=== PATIENT | female | born 1960 | race Asian ===

== ENCOUNTER 2019-02-11 18:05 | Inpatient (IN) | payer OTHER ==
[2019-02-11 19:07] LABS: BASO % 0.3 % (0-2.0); EOS % 2.4 % (0-4.5); HEMATOCRIT 44.6 % (32.4-45.2); LYMPH % 17.7 % (8-40); MCH 34.4 pg (25.7-33.7); MCHC 33.5 g/dl (32.0-36.0); MEAN CELL VOLUME 102.7 fl (80-96); MONO % 12.6 % (3.8-10.2); PLATELET COUNT 364 K/MM3 (134-434); RBC 4.34 M/mm3 (3.60-5.2); RDW 12.5 % (11.6-15.6); WHITE BLOOD COUNT 9.4 K/mm3 (4.0-10.8)
[2019-02-11] MEDS ORDERED: morphine CARPU-JECT 4 MG/1 ML DISP.SYRIN IVPUSH ONE (19:21)
[2019-02-11] MEDS ORDERED: ONDANSETRON 4 MG/2 ML VIAL IVPB ONE (19:21)
[2019-02-11] MEDS ORDERED: ACETAMINOPHEN 1000 MG/100 ML VIAL (NON FORMULARY) IVPB ONE (19:24)
[2019-02-11] MEDS ORDERED: ONDANSETRON 4 MG/2 ML VIAL ONE ×2 (19:25→19:28)
[2019-02-11] MEDS ORDERED: ACETAMINOPHEN INJECTION 100 ML IVPB ONE (19:25)
--- NOTE | 2019-02-11 19:26 | PDOC ---
History of Present Illness - General Chief Complaint: Pain Stated Complaint: ABD PAIN, NAUSEA Time Seen by Provider: 02/11/19 19:21 History Source: Patient Exam Limitations: No Limitations - History of Present Illness Initial Comments: 02/11/19 19:32 This is a 58-year-old female with type 1 insulin-dependent diabetic who has had 3 days of progressive abdominal pain nausea vomiting. Patient said she's had no bowel movement 3 days and not passing gas. Patient tried to give herself an enema 2 without any relief. Patient also was noted to have a fever of 102. Allergies: as per nursing notes Past Medical History: Type 1 diabetes Social history: Lives with family. No smoking. No alcohol. No illicit drugs. Surgical history: section General: No fevers or chills, no weakness, no weight loss HEENT: No change in vision. No sore throat,. No ear pain CardioVascular: no chest discomfort. No shortness of breath Respiratory:No cough, or wheezing. Gastrointestinal: no nausea, vomiting, diarrhea or constipation, No rectal bleeding Genitourinary: No dysuria, hematuria, or frequency Musculoskeletal: No joint or muscle pain or swelling Neurologic: No headache, vertigo, dizziness or loss of consciousness Psychiatric: nor depression Skin: No rashes or easy bruising Endocrine: no increased thirst or abnormal weight change Allergic: no skin or latex allergy All other systems reviewed and normal Exam: General: Well-nourished well-developed individual, mild distress appears very uncomfortable HEENT: Throat: Normal, tonsils normal, no erythema or exudate Neck: Supple, no meningeal signs, no lymphadenopathy Eyes::Pupils equal reactive and round, extraocular motion intact Chest: Nontender to palpation Cardiac: S1-S2 normal, regular rate and rhythm, no murmurs rubs or gallops Respiratory: Lungs clear to auscultation bilateral Abdomen: Abdomen is soft with decreased bowel sounds and some moderate distention. Abdomen is tender on palpation diffusely but more tender across the lower segments. There is no guarding but there is some rebound Extremities: Warm, dry, no cyanosis, clubbing, or edema Skin: No rashes Neuro: Alert and oriented x3, CN II - XII intact, nonfocal exam with normal strength, normal sensation, normal reflexes, normal gait, Psych: Normal mood and affect Assessment and plan: This is a 58-year-old type 1 insulin-dependent diabetic with elevated temperature of 102 here in the ED. Patient had sepsis workup ordered by Dr. Gastelum. In addition to that I gave patient IV fluids, morphine, Zofran, IV Tylenol and ordered a CAT scan of her abdomen and pelvis. Past History - Past Medical History Allergies/Adverse Reactions: Allergies Allergy/AdvReac Type Severity Reaction Status Date / Time No Known Allergies Allergy Verified 02/11/19 18:07 Home Medications: Ambulatory Orders Insulin Glargine,Hum.rec.anlog [Lantus] 9 unit SQ HS 02/11/19 Insulin Lispro [Humalog] unit SQ TID 02/11/19 COPD: No Diabetes: Yes - Surgical History Appendectomy: Yes - Suicide/Smoking/Psychosocial Hx Smoking History: Never smoked Have you smoked in the past 12 months: No Information on smoking cessation initiated: No Hx Alcohol Use: No *Physical Exam - Vital Signs Last Vital Signs Temp Pulse Resp BP Pulse Ox 100 F H 102 H 20 115/78 100 02/11/19 18:05 02/11/19 18:05 02/11/19 18:05 02/11/19 18:05 02/11/19 18:05 ED Treatment Course - LABORATORY CBC & Chemistry Diagram: 02/11/19 19:00 02/11/19 19:00 - ADDITIONAL ORDERS Additional order review: 02/11/19 19:00 RBC 4.34 MCV 102.7 H MCHC 33.5 RDW 12.5 MPV 8.0 Neutrophils % 67.0 Lymphocytes % 17.7 Monocytes % 12.6 H Eosinophils % 2.4 Basophils % 0.3 *DC/Admit/Observation/Transfer Diagnosis at time of Disposition: Cecal volvulus Bowel obstruction Qualifiers: Intestinal obstruction type: volvulus Qualified Code(s): K56.2 - Volvulus - Discharge Dispostion Condition at time of disposition: Stable Decision to Admit order: Yes - Referrals - Patient Instructions - Post Discharge Activity
[2019-02-11 19:30] LABS: ALBUMIN 4.2 g/dl (3.4-5.0); BILIRUBIN,TOTAL 1.3 mg/dl (0.2-1); CALCIUM 9.5 mg/dl (8.5-10); CREATININE 0.8 mg/dl (0.55-1.3); POTASSIUM 3.8 mmol/L (3.5-5.1); TOT PROT 8.1 g/dl (6.4-8.2)
[2019-02-11] MEDS: SODIUM CHLORIDE 1,000 ML IV ONE (19:30)
[2019-02-11] MEDS ORDERED: morphine SULFATE 4 MG/ML VIAL ONE (19:49)
[2019-02-11] MEDS ORDERED: PIPERACILLIN/TAZOB 4.5 GM 4.5 GM in DEXTROSE 5%-WATER 100 ML IVPB ONE (22:56)
[2019-02-11] MEDS ORDERED: SODIUM CHLORIDE 1,000 ML IV SCH (23:00)
[2019-02-11] MEDS ORDERED: PIPERACILLIN/TAZOBACTAM 4.5 GM VIAL IVPB ONE (23:02)
[2019-02-12 01:12] LABS: INR 0.94 (0.83-1.09); PROTHROMBIN TIME (PATIENT) 11.1 SEC (9.7-13.0)
[2019-02-12 01:51] LABS: URINE APPEARANCE CLEAR; URINE BILIRUBIN NEGATIVE (NEGATIVE); URINE COLOR YELLOW; URINE KETONE 40 mg/dl (NEGATIVE)
[2019-02-12 01:52] LABS: URINE LEUK ESTERASE NEGATIVE (NEGATIVE); URINE NITRITE NEGATIVE (NEGATIVE); URINE PROTEIN NEGATIVE (NEGATIVE); URINE UROBILINOGEN 0.2 mg/dL (0.2-1.0)
[2019-02-12 01:53] LABS: EPI CELLS 4.9 /HPF (0-5/HPF); HYALINE CASTS 0.35 /lpf (0-8); URINE BACTERIA 218.6 /hpf (NEGATIVE); URINE RBC 3.4 /hpf (0-4); URINE WBC 5.8 /hpf (0-5)
--- NOTE | 2019-02-12 04:13 | HP ---
Admitting History and Physical - Primary Care Physician PCP: Jada Kam - Admission Chief Complaint: Abdominal Pain, Constipation, N/V History of Present Illness: This is a 58 y/o woman with a PMHx of IDDM. Who presented to [place] ED for abdominal pain with constipation and nausea/vomiting. Patient reports being constipated x 3 days taking laxatives and 2 enemas without relief. Patient describes the pain as constant and increased with movement. Patient reports attempting to eat due to her decreased appetite and began dry heaving. Patient denies fever, chills, cough, dizziness, FORMAN, SOB, CP, palpitations, melena, hematochezia, dysuria. History Source: Patient Limitations to Obtaining History: No Limitations - Past Medical History Endocrine: Yes: Diabetes Mellitus - Past Surgical History Additional Past Surgical History: Myomectomy - Smoking History Smoking history: Never smoked Have you smoked in the past 12 months: No - Alcohol/Substance Use Hx Alcohol Use: Yes (Occasional) History of Substance Use: reports: None - Social History Usual Living Arrangement: Yes: With Spouse ADL: Independent Occupation: Retired- [employer] History of Recent Travel: No Home Medications - Allergies Allergies/Adverse Reactions: Allergies Allergy/AdvReac Type Severity Reaction Status Date / Time No Known Allergies Allergy Verified 02/11/19 18:07 - Home Medications Home Medications: Ambulatory Orders Insulin Glargine,Hum.rec.anlog [Lantus] 9 unit SQ HS 02/11/19 Insulin Lispro [Humalog] unit SQ TID 02/11/19 Family Disease History - Family Disease History Family Disease History: Diabetes: Father, Mother Review of Systems - Review of Systems Constitutional: reports: Loss of Appetite Eyes: reports: No Symptoms HENT: reports: No Symptoms Neck: reports: No Symptoms Cardiovascular: reports: No Symptoms Respiratory: reports: No Symptoms Gastrointestinal: reports: Abdominal Pain, Constipation, Nausea, Vomiting Genitourinary: reports: No Symptoms Breasts: reports: No Symptoms Reported Musculoskeletal: reports: No Symptoms Integumentary: reports: No Symptoms Neurological: reports: No Symptoms Endocrine: reports: No Symptoms Hematology/Lymphatic: reports: No Symptoms Psychiatric: reports: No Symptoms Pain Intensity: 3 Physical Examination Vital Signs: Vital Signs Temperature 98.6 F 02/11/19 20:23 Pulse Rate 93 H 09/01/19 22:57 Respiratory Rate 16 02/11/19 20:23 Blood Pressure 116/79 02/11/19 22:57 O2 Sat by Pulse Oximetry (%) 97 02/11/19 22:57 Constitutional: Yes: No Distress, Calm Eyes: Yes: WNL, Conjunctiva Clear, EOM Intact, PERRL HENT: Yes: WNL, Atraumatic, Normocephalic, Other (16 fr NGT to L- Nare int suction coffee ground in container- coffee ground to clear in tubing) Neck: Yes: WNL, Supple, Trachea Midline Cardiovascular: Yes: WNL, Regular Rate and Rhythm, S1, S2 Respiratory: Yes: WNL, Regular, CTA Bilaterally Gastrointestinal: Yes: Soft, Hypoactive Bowel Sounds, Tenderness (generalized to light/deep palpation), Tenderness, Epigastrium Renal/: Yes: WNL Breast(s): Yes: WNL Musculoskeletal: Yes: WNL Extremities: Yes: WNL Edema: No Peripheral Pulses WNL: Yes Integumentary: Yes: WNL Neurological: Yes: WNL, Alert, Oriented, Cran Nerves II-XII Intact ...Motor Strength: WNL Psychiatric: Yes: WNL, Alert, Oriented Labs: CBC, BMP 02/11/19 19:00 02/11/19 19:00 Laboratory Results - last 24 hr 02/11/19 02/11/19 02/11/19 18:59 19:00 19:00 WBC 9.4 RBC 4.34 Hgb 15.0 Hct 44.6 MCV 102.7 H MCH 34.4 H MCHC 33.5 RDW 12.5 Plt Count 364 MPV 8.0 Absolute Neuts (auto) 6.2 Neutrophils % 67.0 Lymphocytes % 17.7 Monocytes % 12.6 H Eosinophils % 2.4 Basophils % 0.3 PT with INR INR Sodium 132 L Potassium 3.8 Chloride 95 L Carbon Dioxide 24 Anion Gap 13 BUN 26.0 H Creatinine 0.8 Est GFR (CKD-EPI)AfAm 92.87 Est GFR (CKD-EPI)NonAf 80.13 Random Glucose 109 H Lactic Acid 1.1 Calcium 9.5 Total Bilirubin 1.3 H AST 19 ALT 16 Alkaline Phosphatase 74 Troponin I Total Protein 8.1 Albumin 4.2 Lipase Urine Color Urine Appearance Urine pH Ur Specific [place] Urine Protein Urine Glucose (UA) Urine Ketones Urine Blood Urine Nitrite Urine Bilirubin Urine Urobilinogen Ur Leukocyte Esterase Urine WBC (Auto) Urine RBC (Auto) Urine Casts (Auto) U Epithel Cells (Auto) Urine Bacteria (Auto) Blood Type Antibody Screen 02/11/19 02/11/19 02/12/19 19:00 19:00 00:00 WBC RBC Hgb Hct MCV MCH MCHC RDW Plt Count MPV Absolute Neuts (auto) Neutrophils % Lymphocytes % Monocytes % Eosinophils % Basophils % PT with INR 11.10 INR 0.94 Sodium Potassium Chloride Carbon Dioxide Anion Gap BUN Creatinine Est GFR (CKD-EPI)AfAm Est GFR (CKD-EPI)NonAf Random Glucose Lactic Acid Calcium Total Bilirubin AST ALT Alkaline Phosphatase Troponin I < 0.03 Total Protein Albumin Lipase 139 Urine Color Urine Appearance Urine pH Ur Specific [place] Urine Protein Urine Glucose (UA) Urine Ketones Urine Blood Urine Nitrite Urine Bilirubin Urine Urobilinogen Ur Leukocyte Esterase Urine WBC (Auto) Urine RBC (Auto) Urine Casts (Auto) U Epithel Cells (Auto) Urine Bacteria (Auto) Blood Type Antibody Screen 02/12/19 02/12/19 00:00 00:00 WBC RBC Hgb Hct MCV MCH MCHC RDW Plt Count MPV Absolute Neuts (auto) Neutrophils % Lymphocytes % Monocytes % Eosinophils % Basophils % PT with INR INR Sodium Potassium Chloride Carbon Dioxide Anion Gap BUN Creatinine Est GFR (CKD-EPI)AfAm Est GFR (CKD-EPI)NonAf Random Glucose Lactic Acid Calcium Total Bilirubin AST ALT Alkaline Phosphatase Troponin I Total Protein Albumin Lipase Urine Color Yellow Urine Appearance Clear Urine pH 5.0 Ur Specific [place] 1.077 H Urine Protein Negative Urine Glucose (UA) 1000 mg/dl Urine Ketones 40 mg/dl Urine Blood Negative Urine Nitrite Negative Urine Bilirubin Negative Urine Urobilinogen 0.2 Ur Leukocyte Esterase Negative Urine WBC (Auto) 5.8 Urine RBC (Auto) 3.4 Urine Casts (Auto) 0.35 U Epithel Cells (Auto) 4.9 Urine Bacteria (Auto) 218.6 Blood Type A POSITIVE Antibody Screen Negative Imaging - Results Chest X-ray: Image Reviewed Cat Scan: Report Reviewed, Image Reviewed EKG: Image Reviewed Problem List - Problems (1) Cecal volvulus Assessment/Plan: CTAP report 9cm cecal volvulus with obstruction, multiple distended loops. fluid filled small bowel Appreciate Surgical input- Dr You aware, per ED attending- OR in am No Leukocytosis, no L- shift, Lactic Acid-nl NPO NGT placed to low wall suction Zosyn initiated in ED will continue Continue IVF Pain Management Zofran prn Monitor CBC, BMP Monitor vitals Code(s): K56.2 - VOLVULUS (2) Bowel obstruction Assessment/Plan: See above Code(s): K56.609 - UNSP INTESTNL OBST, UNSP TO PARTIAL VERSUS COMPLETE OBST Qualifiers: Intestinal obstruction type: volvulus Qualified Code(s): K56.2 - Volvulus (3) Abdominal pain Assessment/Plan: Likely secondary to Cecak Volvulus with Obstruction CTAP reviewed See above Code(s): R10.9 - UNSPECIFIED ABDOMINAL PAIN (4) Diabetes mellitus, insulin dependent (IDDM), controlled Assessment/Plan: Stable BGMs Hold ISS secondary to NPO Monitor BMP Code(s): E11.9 - TYPE 2 DIABETES MELLITUS WITHOUT COMPLICATIONS; Z79.4 - USP (CURRENT) USE OF INSULIN Assessment/Plan This is a 58 y/o woman with a PMHx of IDDM. Admitted to [facility] for Cecal Volvulus, Abdominal Pain for further evaluation of their emergent condition. Plan: See Problem List FEN NS Visit type - Emergency Visit Emergency Visit: Yes ED Registration Date: 02/11/19 Care time: The patient presented to the Emergency Department on the above date and was hospitalized for further evaluation of their emergent condition. - New Patient This patient is new to me today: Yes Date on this admission: 02/12/19 - Critical Care Critical Care patient: No
[2019-02-12] MEDS ORDERED: ACETAMINOPHEN 1000 MG/100 ML VIAL (NON FORMULARY) IVPB PRN (06:41)
[2019-02-12] MEDS ORDERED: MORPHINE SULFATE 2 MG/ML VIAL IVPUSH PRN (06:42)
[2019-02-12] MEDS ORDERED: ONDANSETRON 4 MG/2 ML VIAL IVPUSH PRN ×4 (06:43→21:58)
--- NOTE | 2019-02-12 07:33 | CONSULT ---
Consult Consult Specialty:: General Surgery Referred by:: Dr. Santana Reason for Consultation:: cecal volvulus - History of Present Illness Chief Complaint: abdominal pain, n/v, f/c, constipation History of Present Illness: 58yo F with adult-onset DM, insulin dependent, controlled, and surgical history significant for myomectomy and remote liposuction, presented to [facility] ER with 3 days of generalized abdominal pain, initially thought to be constipation, with progressive bloating/distention. It started Tuesday morning, and she took stool softener, which did not have much effect, then began vomiting everything she ate later Tuesday. She also has not passed gas for 3 days. Tuesday she tried an enema, with little to no effect, and again yesterday with similar results. She also developed F/C yesterday and realized something else must be wrong, so came to ER. Last po was a little steak and asparagus Tuesday night, which did stay down. In the ER, she was febrile with normal wbc, dehydrated by labs, tachycardic but not hypotensive, and CT showed cecal volvulus with SBO. She was given generous IV fluids, glucose was in normal range, and started on Zosyn. She was transferred to [facility], as there is no OR availability there on weekends/ holidays. NG was inserted with small output, but she did feel a little better. Pain meds were also given. She has since voided several times. She is seen and examined in bed. She c/o abdominal pain and discomfort from the NGT. She relates the above history. - History Source History Provided By: Patient Limitations to Obtaining History: No Limitations - Past Medical History Reproductive: Yes: Fibroids, Postmenopausal Endocrine: Yes: Diabetes Mellitus - Past Surgical History Additional Surgical History: liposuction; myomectomy - Alcohol/Substance Use Hx Alcohol Use: Yes (Occasional) History of Substance Use: reports: None - Smoking History Smoking history: Never smoked Have you smoked in the past 12 months: No - Social History Usual Living Arrangement: With Spouse ADL: Independent Occupation: Retired- [employer] History of Recent Travel: No Home Medications - Allergies Allergies/Adverse Reactions: Allergies Allergy/AdvReac Type Severity Reaction Status Date / Time No Known Allergies Allergy Verified 02/11/19 18:07 - Home Medications Home Medications: Ambulatory Orders Insulin Glargine,Hum.rec.anlog [Lantus] 9 unit SQ HS 02/11/19 Insulin Lispro [Humalog] unit SQ TID 02/11/19 Family Disease History - Family Disease History Family Disease History: Diabetes: Father (stomach, dx in 70s, of), Mother ( uterine, dx at 88, of), [place]: Father, Mother Review of Systems - Review of Systems Constitutional: reports: Chills, Fever Eyes: denies: Blurred Vision, Recent Change in Vision HENT: denies: Difficult Swallowing, Throat Pain Neck: denies: Swollen Glands, Tenderness Cardiovascular: denies: Chest Pain, Palpitations Respiratory: denies: Cough, SOB Gastrointestinal: reports: Abdominal Pain, Constipation, Nausea, Vomiting. denies: Diarrhea, Vomiting Blood Genitourinary: denies: Burning, Dysuria Musculoskeletal: denies: Back Pain, Joint Pain, Muscle Pain Integumentary: denies: Change in Color, Rash Neurological: denies: Dizziness, Headache Psychiatric: denies: Anxiety, Depression Physical Exam Vital Signs: Vital Signs Temperature 98.6 F 02/11/19 20:23 Pulse Rate 93 H 02/11/19 22:57 Respiratory Rate 16 02/11/19 20:23 Blood Pressure 116/79 02/11/19 22:57 O2 Sat by Pulse Oximetry (%) 97 02/11/19 22:57 Constitutional: Yes: Well Nourished, Calm, Mild Distress (in pain) Eyes: Yes: Conjunctiva Clear, EOM Intact HENT: Yes: Atraumatic, Normocephalic, Other (NGT in place with minimal clear output with brown/reddish sediment) Neck: Yes: Supple, Trachea Midline Cardiovascular: Yes: Regular Rate and Rhythm, Tachycardia (slight) Respiratory: Yes: Regular, CTA Bilaterally Gastrointestinal: Yes: Soft, Distention (mild), Hypoactive Bowel Sounds (absent) , Tenderness (diffuse, more in midline and right side, no rebound or guarding), Tenderness, Epigastrium, Other (healed umbilical and subxiphoid small scars) ...Rectal Exam: Yes: Deferred Renal/: No: CVA Tenderness - Left, CVA Tenderness - Right Musculoskeletal: No: Joint Stiffness, Joint Swelling Extremities: No: Cool, Cyanosis Edema: No Peripheral Pulses WNL: Yes Integumentary: No: Jaundice, Rash Neurological: Yes: Alert, Oriented Psychiatric: Yes: Alert, Oriented Labs: Laboratory Results - last 24 hr 02/11/19 02/11/19 02/11/19 18:59 19:00 19:00 WBC 9.4 RBC 4.34 Hgb 15.0 Hct 44.6 MCV 102.7 H MCH 34.4 H MCHC 33.5 RDW 12.5 Plt Count 364 MPV 8.0 Absolute Neuts (auto) 6.2 Neutrophils % 67.0 Lymphocytes % 17.7 Monocytes % 12.6 H Eosinophils % 2.4 Basophils % 0.3 PT with INR INR Sodium 132 L Potassium 3.8 Chloride 95 L Carbon Dioxide 24 Anion Gap 13 BUN 26.0 H Creatinine 0.8 Est GFR (CKD-EPI)AfAm 92.87 Est GFR (CKD-EPI)NonAf 80.13 Random Glucose 109 H Lactic Acid 1.1 Calcium 9.5 Total Bilirubin 1.3 H AST 19 ALT 16 Alkaline Phosphatase 74 Troponin I Total Protein 8.1 Albumin 4.2 Lipase Urine Color Urine Appearance Urine pH Ur Specific [place] Urine Protein Urine Glucose (UA) Urine Ketones Urine Blood Urine Nitrite Urine Bilirubin Urine Urobilinogen Ur Leukocyte Esterase Urine WBC (Auto) Urine RBC (Auto) Urine Casts (Auto) U Epithel Cells (Auto) Urine Bacteria (Auto) Blood Type Antibody Screen 02/11/19 02/11/19 02/12/19 19:00 19:00 00:00 WBC RBC Hgb Hct MCV MCH MCHC RDW Plt Count MPV Absolute Neuts (auto) Neutrophils % Lymphocytes % Monocytes % Eosinophils % Basophils % PT with INR 11.10 INR 0.94 Sodium Potassium Chloride Carbon Dioxide Anion Gap BUN Creatinine Est GFR (CKD-EPI)AfAm Est GFR (CKD-EPI)NonAf Random Glucose Lactic Acid Calcium Total Bilirubin AST ALT Alkaline Phosphatase Troponin I < 0.03 Total Protein Albumin Lipase 139 Urine Color Urine Appearance Urine pH Ur Specific [place] Urine Protein Urine Glucose (UA) Urine Ketones Urine Blood Urine Nitrite Urine Bilirubin Urine Urobilinogen Ur Leukocyte Esterase Urine WBC (Auto) Urine RBC (Auto) Urine Casts (Auto) U Epithel Cells (Auto) Urine Bacteria (Auto) Blood Type Antibody Screen 02/12/19 02/12/19 00:00 00:00 WBC RBC Hgb Hct MCV MCH MCHC RDW Plt Count MPV Absolute Neuts (auto) Neutrophils % Lymphocytes % Monocytes % Eosinophils % Basophils % PT with INR INR Sodium Potassium Chloride Carbon Dioxide Anion Gap BUN Creatinine Est GFR (CKD-EPI)AfAm Est GFR (CKD-EPI)NonAf Random Glucose Lactic Acid Calcium Total Bilirubin AST ALT Alkaline Phosphatase Troponin I Total Protein Albumin Lipase Urine Color Yellow Urine Appearance Clear Urine pH 5.0 Ur Specific [place] 1.077 H Urine Protein Negative Urine Glucose (UA) 1000 mg/dl Urine Ketones 40 mg/dl Urine Blood Negative Urine Nitrite Negative Urine Bilirubin Negative Urine Urobilinogen 0.2 Ur Leukocyte Esterase Negative Urine WBC (Auto) 5.8 Urine RBC (Auto) 3.4 Urine Casts (Auto) 0.35 U Epithel Cells (Auto) 4.9 Urine Bacteria (Auto) 218.6 Blood Type A POSITIVE Antibody Screen Negative Imaging - Results Cat Scan: Report Reviewed, Image Reviewed (images reviewed - cecum very large, twisted with fluid-filled small bowel proximally, relatively decompressed remaining colon, no free air) Problem List - Problems (1) Cecal volvulus Assessment/Plan: transferred from [facility] for OR admitted to medicine fluid resuscitated - NPO/IVF/NGT - little output NG will stay until bowel function resumes postop voiding - better hydrated on fluids IV antibiotics, ID consulted pain meds prn GI/DVT prophylaxis Discussed with patient risks, benefits and alternatives of exploratory laparotomy, bowel resection, possible ostomy, including but not limited to bleeding, infection, injury to adjacent structures, intestinal leak or injury, intraabdominal abscess, incisional hernia, need for further procedures, ; alternatives include no surgery - risks of this include bowel perforation, sepsis, . Patient desires to proceed with operation - will take to OR for above. Informed consent signed for same. Code(s): K56.2 - VOLVULUS (2) Other complete intestinal obstruction Code(s): K56.691 - OTHER COMPLETE INTESTINAL OBSTRUCTION (3) Generalized abdominal pain Code(s): R10.84 - GENERALIZED ABDOMINAL PAIN (4) Nausea & vomiting Code(s): R11.2 - NAUSEA WITH VOMITING, UNSPECIFIED Qualifiers: Vomiting type: unspecified Vomiting Intractability: non-intractable Qualified Code(s): R11.2 - Nausea with vomiting, unspecified (5) Diabetes mellitus, insulin dependent (IDDM), controlled Assessment/Plan: FS with sliding scale insulin Code(s): E11.9 - TYPE 2 DIABETES MELLITUS WITHOUT COMPLICATIONS; Z79.4 - ALF (CURRENT) USE OF INSULIN
[2019-02-12 07:55] LABS: BLOOD UREA NITROGEN 18.9 mg/dL (7-18); CALCIUM 8.5 mg/dL (8.5-10.1); CREATININE 0.6 mg/dL (0.55-1.3); POTASSIUM 3.9 mmol/L (3.5-5.1)
[2019-02-12] MEDS ORDERED: PIPERACILLIN/TAZOBACTAM 4.5 GM VIAL IVPB ONE ×4 (07:56→23:47)
[2019-02-12] MEDS ORDERED: DEXTROSE 5%-WATER 100 ML IVPB ONE ×3 (07:57→23:47)
[2019-02-12 07:59] LABS: BASO % 0.7 % (0-2.0); EOS % 2.6 % (0-4.5); HEMATOCRIT 38.2 % (32.4-45.2); HEMOGLOBIN 12.9 GM/dL (10.7-15.3); LYMPH % 18.1 % (8-40); MCH 34.3 pg (25.7-33.7); MCHC 33.7 g/dl (32.0-36.0); MEAN PLT VOLUME 7.5 fl (7.5-11.1); MONO % 14.1 % (3.8-10.2); NEUT % 64.5 % (42.8-82.8); PLATELET COUNT 287 K/MM3 (134-434); RBC 3.75 M/mm3 (3.60-5.2); RDW 12.7 % (11.6-15.6); WHITE BLOOD COUNT 6.4 K/mm3 (4.0-10.0)
[2019-02-12] MEDS ORDERED: PIPERACILLIN/TAZOB 4.5 GM 4.5 GM in DEXTROSE 5%-WATER 100 ML IVPB SCH ×3 (08:00→16:00)
[2019-02-12] MEDS ORDERED: LIDOCAINE HCL/PF 2% SDV 5ML VIAL ONE (08:24)
[2019-02-12] MEDS ORDERED: SUCCINYLCHOLINE CHLORIDE 200 MG/10 ML SYRINGE ONE (08:25)
[2019-02-12] MEDS ORDERED: PROPOFOL 20 ML ONE ×2 (08:25)
[2019-02-12] MEDS ORDERED: ROCURONIUM BROMIDE 50 MG/5 ML SYRINGE ONE (08:25)
[2019-02-12] MEDS ORDERED: fentaNYL CITRATE 250 MCG/5 ML VIAL ONE ×2 (08:25→10:25)
--- NOTE | 2019-02-12 08:52 | EKG ---
Test Reason : Blood Pressure : / mmHG Vent. Rate : 093 BPM Atrial Rate : 093 BPM P-R Int : 144 ms QRS Dur : 088 ms QT Int : 376 ms P-R-T Axes : 069 075 064 degrees QTc Int : 467 ms NORMAL SINUS RHYTHM NORMAL ECG NO PREVIOUS ECGS AVAILABLE Confirmed by LO GUAJARDO, PALMER ([id number]) on 02/12/2019 8:52:23 AM Referred By: EVERARDO Confirmed By:PALMER BLANCHARD MD
[2019-02-12] MEDS ORDERED: ONDANSETRON 4 MG/2 ML VIAL ONE (09:12)
[2019-02-12] MEDS ORDERED: KETOROLAC TROMETHAMINE 30 MG/1 ML VIAL ONE (09:12)
[2019-02-12] MEDS ORDERED: DEXAMETHASONE SOD PHOSPHATE 4 MG/1 ML VIAL ONE (09:12)
[2019-02-12] MEDS ORDERED: GLYCOPYRROLATE 0.2 MG/1 ML VIAL ONE ×2 (10:25)
[2019-02-12] MEDS ORDERED: NEOSTIGMINE METHYLSULFATE 0.5 MG/1 ML - 10 ML MDV ONE (10:25)
[2019-02-12] MEDS ORDERED: oxyCODONE HCL 5 MG TABLET PO PRN (10:55)
[2019-02-12] MEDS ORDERED: PROMETHAZINE HCL 25 MG/1 ML VIAL IVPUSH PRN (10:55)
[2019-02-12] MEDS ORDERED: HYDROmorphone *PCA* 10MG/50ML DISP.SYRIN PCA SCH ×3 (11:00→21:58)
[2019-02-12] MEDS ORDERED: INSULIN SLIDING SCALE (NOVOLOG) 1 VIAL SQ SCH ×2 (11:00→16:30)
--- NOTE | 2019-02-12 11:51 | OP ---
Operative Note - Note: Operative Date: 02/12/19 Pre-Operative Diagnosis: cecal volvulus Operation: ileocecectomy with lysis of adhesions Findings: omental adhesions to lower abdominal wall/pelvis, adhesive band stuck down to RLQ, around which cecum was twisted and massively enlarged; no perforation; localized spillage during anastomosis only, irrigated/suctioned clear Post-Operative Diagnosis: Other (same as preop with adhesive band/adhesions) Surgeon: Tony You Datastage Developer: Khari Campa Anesthesiologist/COMMISSIONS MANAGER: Barry Joya Anesthesia: General Specimens Removed: terminal ileum/appendix/cecum to pathology; peritoneal fluid cx on swab to micro Estimated Blood Loss (mls): 50 Drains & Tubes with Location: existing NG secured in place; Weldon catheter to gravity drainage Drains, Volume Out (mls): 300 (UOP) Fluid Volume Replaced (mls): 1,800 (crystalloid) Operative Report Dictated: Yes
[2019-02-12] MEDS ORDERED: LACTATED RINGERS SOLUTION 1,000 ML/1,000 ML INFUS.BAG IV SCH ×3 (12:00→20:45)
[2019-02-12] MEDS ORDERED: ACETAMINOPHEN 1000 MG/100 ML VIAL (NON FORMULARY) IVPB SCH ×2 (15:00)
--- NOTE | 2019-02-12 15:02 | CON.ID ---
Consult - History of Present Illness History of Present Illness: 58 y.o. female with PMH of IDDM, fibroids s/p myomectomy, liposuction, and appendectomy presented with c/o abd pain/n/v that began 3 days ago. She reported having no BMs or flatus for 3 days and tried enemas without relief. She denied any fever/chills, SOB/cough/CP/dysuria. In the ER pt was reported to have a fever of 102F with decreased BS and abd distension with diffuse tenderness on exam. CT results revealed a cecal volvulus with SBO. Pt is now s/ p ileocecectomy with lysis of adhesions. She is alert, resting comfortable, without acute pain. 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 History of Recent Travel: No Home Medications - Allergies Allergies/Adverse Reactions: Allergies Allergy/AdvReac Type Severity Reaction Status Date / Time No Known Allergies Allergy Verified 02/11/19 18:07 - Home Medications Home Medications: Ambulatory Orders Insulin Glargine,Hum.rec.anlog [Lantus] 9 unit SQ HS 02/11/19 Insulin Lispro [Humalog] unit SQ TID 02/11/19 Family Disease History - Family Disease History Family Disease History: Diabetes: Father (stomach, dx in 70s, of), Mother ( uterine, dx at 88, of), [place]: Father, Mother Review of Systems - Review of Systems Constitutional: reports: No Symptoms Eyes: reports: No Symptoms HENT: reports: No Symptoms Neck: reports: No Symptoms Cardiovascular: reports: No Symptoms Respiratory: reports: No Symptoms Gastrointestinal: reports: Abdominal Pain Genitourinary: reports: No Symptoms Breasts: reports: No Symptoms Reported Musculoskeletal: reports: No Symptoms Integumentary: reports: No Symptoms Neurological: reports: No Symptoms Endocrine: reports: No Symptoms Hematology/Lymphatic: reports: No Symptoms Psychiatric: reports: No Symptoms Physical Exam Vital Signs: Vital Signs Temperature 99.1 F 02/12/19 12:25 Pulse Rate 90 02/12/19 12:25 Respiratory Rate 20 02/12/19 12:25 Blood Pressure 136/79 02/12/19 12:25 O2 Sat by Pulse Oximetry (%) 98 02/12/19 12:25 Constitutional: Yes: No Distress, Calm Eyes: Yes: Conjunctiva Clear, EOM Intact HENT: Yes: Atraumatic Neck: Yes: Supple Cardiovascular: Yes: Regular Rate and Rhythm Respiratory: Yes: CTA Bilaterally Gastrointestinal: Yes: Soft, Hypoactive Bowel Sounds, Other (NGT) Renal/: Yes: Weldon Present Musculoskeletal: Yes: WNL Extremities: Yes: WNL Edema: No Integumentary: Yes: WNL Wound/Incision: Yes: Other (abdominal dressing intact) Psychiatric: Yes: Alert Labs: CBC, BMP 02/12/19 07:15 02/12/19 07:15 Imaging - Results Chest X-ray: Report Reviewed Cat Scan: Pending Problem List - Problems (1) Cecal volvulus Code(s): K56.2 - VOLVULUS (2) Diabetes mellitus, insulin dependent (IDDM), controlled Code(s): E11.9 - TYPE 2 DIABETES MELLITUS WITHOUT COMPLICATIONS; Z79.4 - PLEXIGLAS FORMER (CURRENT) USE OF 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 female with PMH of IDDM, fibroids s/p myomectomy, liposuction, and appendectomy presented with c/o abd pain/n/v that began 3 days ago Cecal volvulus/SBO s/p ileocecectomy and RAIN POD#0 IDDM Hx Fibroids s/p myomectomy -- operative note reviewed -- continue Zosyn empirically -- follow up peritoneal fluid culture results -- monitor temp trend/vitals -- Surgery following, case d/w Dr. You Will follow Thank you
[2019-02-12] MEDS ORDERED: DEXTROSE 5%-LACTATED RINGERS 1,000 ML IV SCH (17:00)
--- NOTE | 2019-02-12 17:32 | PN ---
Progress Note, Physician Chief Complaint: Admitted overnight for 9cm cecal volvulus with obstruction. Taken to OR today 02/12 and is now s/p ileocecectomy with lysis of adhesions. - Current Medication List Current Medications: Active Medications Acetaminophen (Ofirmev Injection -) 1,000 mg IVPB Q6H-IV [facility] Last Admin: 02/12/19 14:16 Dose: 1,000 mg Hydromorphone HCl (Hydromorphone 10 Mg/50 Ml-Ns) 10 mg IRIDOLOGIST IRIDOLOGIST AMA[facility]; Protocol Stop: 02/13/19 10:59 Last Admin: 02/12/19 12:35 Dose: 10 mg Piperacillin Sod/Tazobactam (Sod 4.5 gm/ Dextrose) 100 mls @ 200 mls/hr IVPB Q8H [facility] Last Admin: 02/12/19 16:08 Dose: 200 mls/hr Dextrose/Lactated Ringer's (D5-Lr -) 1,000 mls @ 150 mls/hr IV ASDIR [facility] Last Admin: 02/12/19 17:12 Dose: 150 mls/hr Insulin Aspart (Novolog Vial Sliding Scale -) 1 vial SQ ACHS [facility]; Protocol Last Admin: 02/12/19 16:12 Dose: Not Given Ondansetron HCl (Zofran Injection) 4 mg IVPUSH Q6H PRN PRN Reason: NAUSEA AND/OR VOMITING - Objective Vital Signs: Vital Signs Temperature 98.6 F 02/12/19 16:15 Pulse Rate 91 H 02/12/19 16:57 Respiratory Rate 20 02/12/19 16:57 Blood Pressure 92/53 L 02/12/19 16:57 O2 Sat by Pulse Oximetry (%) 95 02/12/19 16:44 Constitutional: Yes: Mild Distress Eyes: Yes: Conjunctiva Clear, PERRL HENT: Yes: Atraumatic, Normocephalic Neck: Yes: Supple, Trachea Midline Cardiovascular: Yes: Regular Rate and Rhythm Respiratory: Yes: Regular, CTA Bilaterally Gastrointestinal: Yes: Soft, Tenderness ( diffuse), Tenderness, Rebound ...Rectal Exam: Yes: Deferred Musculoskeletal: Yes: WNL Extremities: Yes: WNL Edema: No Peripheral Pulses WNL: Yes Peripheral Pulses: Left Radial: 2+, Right Radial: 2+, Left Doralis Pedis: 2+, Right Dorsalis Pedis: 2+ Integumentary: Yes: WNL Neurological: Yes: Alert, Oriented ...Motor Strength: WNL Psychiatric: Yes: Alert, Oriented Labs: CBC, BMP 02/12/19 07:15 02/12/19 07:15 INR, PTT INR 0.94 (0.83-1.09) 02/12/19 00:00 Impression/Plan Impression/Plan: 58 y/o woman with a PMHx of IDDM. Who presented to [place] ED for abdominal pain with constipation and nausea/vomiting. Patient reports being constipated x 3 days taking laxatives and 2 enemas without relief. On CT patient noted to have 9cm cecal-volvulus with obstruction. 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 Assessment/Plan: Appreciate Surgical care- Dr You following NPO NGT placed to low wall suction Zosyn TID PRN Continue IVF -D5W LR Pain Management with dilaudid IRIDOLOGIST and IV APAP Zofran prn trend WBC and temp curve follow up peritoneal fluid culture, blood and urine cultures (2) Diabetes mellitus, insulin dependent (IDDM), controlled Assessment/Plan: BGM Q6hrs Hold ISS secondary to NPO -D5W LR 125ml/hr (3) post-op hypotension -aggressive fluid repletion -transfer to ICU if worsening Hemodynamic instability (4) PPX -Weldon -SCDS -incentive spirometry Code status: Full pt requires inpt care. Visit type - Emergency Visit Emergency Visit: Yes ED Registration Date: 02/12/19 Care time: The patient presented to the Emergency Department on the above date and was hospitalized for further evaluation of their emergent condition. - New Patient This patient is new to me today: Yes Date on this admission: 02/12/19 - Critical Care Critical Care patient: No - Discharge Referral Referred to [facility] Med P.C.: No
[2019-02-12 18:07] LABS: HEMATOCRIT 38.6 % (32.4-45.2); HEMOGLOBIN 12.7 GM/dL (10.7-15.3); MCHC 32.8 g/dl (32.0-36.0); MEAN CELL VOLUME 103.7 fl (80-96); MEAN PLT VOLUME 7.7 fl (7.5-11.1); PLATELET COUNT 271 K/MM3 (134-434); RBC 3.72 M/mm3 (3.60-5.2); WHITE BLOOD COUNT 7.4 K/mm3 (4.0-10.0)
[2019-02-12] MEDS ORDERED: SODIUM CHLORIDE 0.9% 500 ML INFUS.BAG IV ONE ×2 (18:12→19:15)
[2019-02-12 18:29] LABS: ALBUMIN 2.4 g/dl (3.4-5.0); BILIRUBIN,TOTAL 0.7 mg/dL (0.2-1); BLOOD UREA NITROGEN 17.6 mg/dL (7-18); CREATININE 0.7 mg/dL (0.55-1.3); POTASSIUM 4.6 mmol/L (3.5-5.1)
--- NOTE | 2019-02-12 19:35 | CONSULT ---
Consultation: REQUESTING PROVIDER:Dr. You CONSULT REQUEST: We have been asked to medically evaluate this patient for ( specify). HISTORY OF PRESENT ILLNESS: 58 yo F w/ PMH of IDDM, fibroids (s/p myomectomy), liposuction, appendectomy presenting with fevers, chills, abdominal pain, n/v, constipation(x 3 d). Pt reports taking laxatives and 2 enemas without relief of constipation. In ED pt was found to be febrile, tachycardic with abdominal tenderness. CT was notable for 9cm cecal-volvulus with obstruction. She is now s/p ileocecectomy with lysis of adhesions. Post op, pt pressures were low, systolic BPs <90. Pt denies headache, n/v, chest pain, palpitations, SOB. Pt will be admitted to ICU for close monitoring of BP REVIEW OF SYSTEMS: CONSTITUTIONAL: Absent: fever, chills, diaphoresis, generalized weakness, malaise, loss of appetite, weight change HEENT: Absent: rhinorrhea, nasal congestion, throat pain, throat swelling, difficulty swallowing, mouth swelling, ear pain, eye pain, visual changes CARDIOVASCULAR: Absent: chest pain, syncope, palpitations, irregular heart rate, lightheadedness , peripheral edema RESPIRATORY: Absent: cough, shortness of breath, dyspnea with exertion, orthopnea, wheezing, stridor, hemoptysis GASTROINTESTINAL: Present: abdominal pain Absent: abdominal distension, nausea, vomiting, diarrhea, constipation, melena , hematochezia GENITOURINARY: Absent: dysuria, frequency, urgency, hesitancy, hematuria, flank pain, genital pain MUSCULOSKELETAL: Absent: myalgia, arthralgia, joint swelling, back pain, neck pain SKIN: Absent: rash, itching, pallor HEMATOLOGIC/IMMUNOLOGIC: Absent: easy bleeding, easy bruising, lymphadenopathy, frequent infections ENDOCRINE: Absent: unexplained weight gain, unexplained weight loss, heat intolerance, cold intolerance NEUROLOGIC: Absent: headache, focal weakness or paresthesias, dizziness, unsteady gait, seizure, mental status changes, bladder or bowel incontinence PHYSICAL EXAMINATION Vital Signs - 24 hr 02/12/19 02/12/19 18:45 19:00 Temperature Pulse Rate 93 H 92 H Pulse Rate [ Left Apical] Respiratory 20 20 Rate Blood Pressure 95/56 L 109/65 Blood Pressure [Left Arm] O2 Sat by Pulse Oximetry (%) GENERAL: Awake, alert, and fully oriented, in no acute distress. HEAD: Normal with no signs of trauma. EYES: Pupils equal, round and reactive to light, extraocular movements intact, sclera anicteric, conjunctiva clear. No lid lag. EARS, NOSE, THROAT:oropharynx clear without exudates. Moist mucous membranes. NG tube NECK: Normal range of motion, supple without lymphadenopathy, JVD, or masses. LUNGS: Breath sounds equal, clear to auscultation bilaterally. No wheezes, and no crackles. No accessory muscle use. HEART: Regular rate and rhythm, normal S1 and S2 without murmur, rub or gallop. ABDOMEN: Soft, not distended, normoactive bowel sounds, abdominal surgical wound LOWER EXTREMITIES: 2+ pulses, warm, well-perfused. No calf tenderness. No peripheral edema. NEUROLOGICAL: Cranial nerves II-XII intact. Normal speech. gait not observed. PSYCHIATRIC: Cooperative. Good eye contact. Appropriate mood and affect. SKIN: Warm, dry, normal turgor, no rashes or lesions noted. Laboratory Last Values WBC 7.4 K/mm3 (4.0-10.0) 02/12/19 17:35 RBC 3.72 M/mm3 (3.60-5.2) 02/12/19 17:35 Hgb 12.7 GM/dL (10.7-15.3) 02/12/19 17:35 Hct 38.6 % (32.4-45.2) 02/12/19 17:35 MCV 103.7 fl (80-96) H 02/12/19 17:35 MCH 34.0 pg (25.7-33.7) H 02/12/19 17:35 MCHC 32.8 g/dl (32.0-36.0) 02/12/19 17:35 RDW 13.0 % (11.6-15.6) 02/12/19 17:35 Plt Count 271 K/MM3 (134-434) 02/12/19 17:35 MPV 7.7 fl (7.5-11.1) 02/12/19 17:35 Absolute Neuts (auto) 4.1 K/mm3 (1.5-8.0) 02/12/19 07:15 Neutrophils % 64.5 % (42.8-82.8) 02/12/19 07:15 Lymphocytes % 18.1 % (8-40) 02/12/19 07:15 Monocytes % 14.1 % (3.8-10.2) H 02/12/19 07:15 Eosinophils % 2.6 % (0-4.5) 02/12/19 07:15 Basophils % 0.7 % (0-2.0) 02/12/19 07:15 Nucleated RBC % 0 % (0-0) 02/12/19 07:15 PT with INR 11.10 SEC (9.7-13.0) 02/12/19 00:00 INR 0.94 (0.83-1.09) 02/12/19 00:00 Sodium 139 mmol/L (136-145) 02/12/19 17:35 Potassium 4.6 mmol/L (3.5-5.1) 02/12/19 17:35 Chloride 108 mmol/L (98-107) H 02/12/19 17:35 Carbon Dioxide 24 mmol/L (21-32) 02/12/19 17:35 Anion Gap 8 MMOL/L (8-16) 02/12/19 17:35 BUN 17.6 mg/dL (7-18) 02/12/19 17:35 Creatinine 0.7 mg/dL (0.55-1.3) 02/12/19 17:35 Est GFR (CKD-EPI)AfAm 109.15 02/12/19 17:35 Est GFR (CKD-EPI)NonAf 94.17 02/12/19 17:35 POC Glucometer 75 UNITS (80-120) 02/12/19 16:10 Random Glucose 97 mg/dL (74-106) 02/12/19 17:35 Lactic Acid 1.1 mmol/L (0.4-2.0) 02/11/19 18:59 Calcium 8.0 mg/dL (8.5-10.1) L 02/12/19 17:35 Total Bilirubin 0.7 mg/dL (0.2-1) 02/12/19 17:35 AST 25 U/L (15-37) 02/12/19 17:35 ALT 19 U/L (13-61) 02/12/19 17:35 Alkaline Phosphatase 53 U/L (45-117) 02/12/19 17:35 Troponin I < 0.03 ng/ml (0.00-0.05) 02/11/19 19:00 Total Protein 5.0 g/dl (6.4-8.2) L 02/12/19 17:35 Albumin 2.4 g/dl (3.4-5.0) L 02/12/19 17:35 Lipase 139 U/L (73-393) 02/11/19 19:00 Urine Color Yellow 02/12/19 00:00 Urine Appearance Clear 02/12/19 00:00 Urine pH 5.0 (5.0-8.0) 02/12/19 00:00 Ur Specific [place] 1.077 (1.010-1.035) H 02/12/19 00:00 Urine Protein Negative (NEGATIVE) 02/12/19 00:00 Urine Glucose (UA) 1000 mg/dl (NEGATIVE) 02/12/19 00:00 Urine Ketones 40 mg/dl (NEGATIVE) 02/12/19 00:00 Urine Blood Negative (NEGATIVE) 02/12/19 00:00 Urine Nitrite Negative (NEGATIVE) 02/12/19 00:00 Urine Bilirubin Negative (NEGATIVE) 02/12/19 00:00 Urine Urobilinogen 0.2 mg/dL (0.2-1.0) 02/12/19 00:00 Ur Leukocyte Esterase Negative (NEGATIVE) 02/12/19 00:00 Urine WBC (Auto) 5.8 /hpf (0-5) 02/12/19 00:00 Urine RBC (Auto) 3.4 /hpf (0-4) 02/12/19 00:00 Urine Casts (Auto) 0.35 /lpf (0-8) 02/12/19 00:00 U Epithel Cells (Auto) 4.9 /HPF (0-5/HPF) 02/12/19 00:00 Urine Bacteria (Auto) 218.6 /hpf (NEGATIVE) 02/12/19 00:00 Blood Type A POSITIVE 02/12/19 07:15 Antibody Screen Negative 02/12/19 00:00 Current Medications Acetaminophen (Ofirmev Injection -) 1,000 mg IVPB Q6H-IV [facility] Last Admin: 02/12/19 14:16 Dose: 1,000 mg Chlorhexidine Gluconate (Hibiclens For Decolonization -) 1 applic TP HS AMAURI Hydromorphone HCl (Hydromorphone 10 Mg/50 Ml-Ns) 10 mg REAL ESTATE OFFICE SUPERVISOR REAL ESTATE OFFICE SUPERVISOR [facility]; Protocol Stop: 02/13/19 10:59 Last Admin: 02/12/19 12:35 Dose: 10 mg Piperacillin Sod/Tazobactam (Sod 4.5 gm/ Dextrose) 100 mls @ 200 mls/hr IVPB Q8H [facility] Last Admin: 02/12/19 16:08 Dose: 200 mls/hr Dextrose/Lactated Ringer's (D5-Lr -) 1,000 mls @ 150 mls/hr IV ASDIR [facility] Last Admin: 02/12/19 17:12 Dose: 150 mls/hr Insulin Aspart (Novolog Vial Sliding Scale -) 1 vial SQ ACHS [facility]; Protocol Last Admin: 02/12/19 16:12 Dose: Not Given Mupirocin (Bactroban Ointment (For Decolonization) -) 1 applic NS BID [facility] Stop: 02/17/19 21:59 Ondansetron HCl (Zofran Injection) 4 mg IVPUSH Q6H PRN PRN Reason: NAUSEA AND/OR VOMITING ASSESSMENT/PLAN: 58 yo F w/ PMH of IDDM, fibroids (s/p myomectomy), liposuction, appendectomy presenting with fevers, chills, abdominal pain, n/v, constipation presented to [place] ED and found to have cecal volvulus w/ obstruction on CT. Pt is s/p ileocecectomy with lysis of adhesions. Pt is admitted to ICU for close BP monitoring post op. s/p ileocecectomy with lysis of adhesions. IDDM Hypotention Neuro -Pt is neurologically intact, Awake, alert, oriented x3 GI -s/p ileocecectomy with lysis of adhesions. -possible localized spillage during surgery -c/w Zosyn TID -c/w hydromorphone 10 mg REAL ESTATE OFFICE SUPERVISOR for pain control, ofirimev q6 prn -cultures negative to date -NGT to low wall suction -Zofran prn Pulm -c/w ICS -BGM , ISS Cardio: low BP likely 2/2 fluid loss 2/2 surgery vs sepsis -continue to monitor BP. pt reports her BP usually is low. -c/w tele monitoring -c/w aggressive fluid repletion w/ LR @ 150 mls/ hr DVT ppx: SCDs -c/w muir F/E/N -LR @ 150 mls/hr -monitor lytes -NPO Code Status: pt is full code Dispo: We will continue to follow the patient. Thank you for this consultative opportunity. Visit type - Emergency Visit Emergency Visit: No - New Patient This patient is new to me today: Yes - Critical Care Critical Care patient: Yes Total Critical Care Time (in minutes): 36 Critical Care Statement: The care of this patient involved high complexity decision making to prevent further life threatening deterioration of the patient 's condition and/or to evaluate & treat vital organ system(s) failure or risk of failure. ATTENDING PHYSICIAN STATEMENT I saw and evaluated the patient. I reviewed the resident's note and discussed the case with the resident. I agree with the resident's findings and plan as documented. SUBJECTIVE: OBJECTIVE: ASSESSMENT AND PLAN:
[2019-02-12] MEDS: SODIUM CHLORIDE 1,000 ML IV ONE (20:46)
[2019-02-12] MEDS: DEXTROSE 5%-LACTATED RINGERS 1,000 ML IV SCH (22:03)
[2019-02-12] MEDS: INSULIN SLIDING SCALE (NOVOLOG) 1 VIAL SQ SCH (22:04)
[2019-02-12] MEDS ORDERED: SODIUM CHLORIDE 500 ML IV STA (23:24)
[2019-02-12] MEDS: CHLORHEXIDINE GLUCONATE 4% CLEANSER FOR DECOLONIZATION TP SCH (23:40)
[2019-02-12] MEDS: PIPERACILLIN/TAZOB 4.5 GM 4.5 GM in DEXTROSE 5%-WATER 100 ML IVPB SCH (23:50)
[2019-02-13] MEDS: MUPIROCIN 2% TOPICAL OINTMENT FOR DECOLONIZATION NS SCH ×3 (02:01→21:35)
[2019-02-13] MEDS: ACETAMINOPHEN 1000 MG/100 ML VIAL (NON FORMULARY) IVPB SCH ×4 (02:19→21:31)
[2019-02-13 05:39] LABS: HEMOGLOBIN 11.6 GM/dL (10.7-15.3); MCH 34.5 pg (25.7-33.7)
[2019-02-13 05:54] LABS: BASO % 0.4 % (0-2.0); EOS % 1.3 % (0-4.5); HEMATOCRIT 34.9 % (32.4-45.2); LYMPH % 10.5 % (8-40); MCHC 33.1 g/dl (32.0-36.0); MEAN PLT VOLUME 7.6 fl (7.5-11.1); MONO % 10.3 % (3.8-10.2); NEUT % 77.5 % (42.8-82.8); PLATELET COUNT 253 K/MM3 (134-434); RBC 3.35 M/mm3 (3.60-5.2); RDW 12.8 % (11.6-15.6)
[2019-02-13] MEDS ORDERED: SODIUM CHLORIDE 1,000 ML IV STA (05:59)
[2019-02-13] MEDS: INSULIN SLIDING SCALE (NOVOLOG) 1 VIAL SQ SCH ×4 (06:02→22:04)
[2019-02-13 06:06] LABS: ALBUMIN 2.1 g/dl (3.4-5.0); BILIRUBIN,TOTAL 0.5 mg/dL (0.2-1); BLOOD UREA NITROGEN 13.3 mg/dL (7-18); CALCIUM 7.9 mg/dL (8.5-10.1); CREATININE 0.7 mg/dL (0.55-1.3); PHOSPHOROUS 3.1 mg/dL (2.5-4.9); POTASSIUM 4.4 mmol/L (3.5-5.1); TOT PROT 4.6 g/dl (6.4-8.2)
[2019-02-13] MEDS ORDERED: PIPERACILLIN/TAZOBACTAM 4.5 GM VIAL IVPB ONE ×2 (08:40→17:29)
[2019-02-13] MEDS ORDERED: DEXTROSE 5%-WATER 100 ML IVPB ONE ×2 (08:40→17:29)
--- NOTE | 2019-02-13 08:58 | PN ---
Physical Exam: SUBJECTIVE: Patient seen and examined at bedside. POD 1. No acute events o/n. Patient has no complaints; denies lightheadedness, dizziness, f/c, chest pain, sob. No flatus. Pt states pain is manageable. OBJECTIVE: Vital Signs Period Temp Pulse Resp BP Sys/Rush Pulse Ox Last 24 Hr 97.8 F-99.1 F 64-101 10-24 82-144/49-79 95-100 GEN: Well appearing, NAD, comfortable. AAOx3 HEENT: NC/AT, EOMI, PERRLA. No facial asymmetry. Normal voice. Supple neck w/ FROM. NGT in place. CV: S1/S2, RRR, no m/r/g LUNG: CTAB, no wheezes, crackles, rales, rhonchi. GI: soft, hypoactive BS. ndnt, no guarding. Midline surgical pad in place. EXTREMITIES: No obvious deformities of all extremities. SCDs b/l. SKIN: warm, dry, normal turgor Laboratory Results - last 24 hr 02/12/19 02/12/19 02/12/19 11:56 16:10 17:35 WBC 7.4 RBC 3.72 Hgb 12.7 Hct 38.6 MCV 103.7 H MCH 34.0 H MCHC 32.8 RDW 13.0 Plt Count 271 MPV 7.7 Absolute Neuts (auto) Neutrophils % Lymphocytes % Monocytes % Eosinophils % Basophils % Nucleated RBC % Sodium Potassium Chloride Carbon Dioxide Anion Gap BUN Creatinine Est GFR (CKD-EPI)AfAm Est GFR (CKD-EPI)NonAf POC Glucometer 108 75 Random Glucose Calcium Phosphorus Magnesium Total Bilirubin AST ALT Alkaline Phosphatase Total Protein Albumin 02/12/19 02/12/19 02/13/19 17:35 21:56 05:15 WBC 8.0 RBC 3.35 L Hgb 11.6 Hct 34.9 MCV 104.0 H MCH 34.5 H MCHC 33.1 RDW 12.8 Plt Count 253 MPV 7.6 Absolute Neuts (auto) 6.2 Neutrophils % 77.5 D Lymphocytes % 10.5 D Monocytes % 10.3 H Eosinophils % 1.3 Basophils % 0.4 Nucleated RBC % 0 Sodium 139 Potassium 4.6 Chloride 108 H Carbon Dioxide 24 Anion Gap 8 BUN 17.6 Creatinine 0.7 Est GFR (CKD-EPI)AfAm 109.15 Est GFR (CKD-EPI)NonAf 94.17 POC Glucometer 143 Random Glucose 97 Calcium 8.0 L Phosphorus Magnesium Total Bilirubin 0.7 AST 25 ALT 19 Alkaline Phosphatase 53 Total Protein 5.0 L Albumin 2.4 L 02/13/19 02/13/19 05:15 05:54 WBC RBC Hgb Hct MCV MCH MCHC RDW Plt Count MPV Absolute Neuts (auto) Neutrophils % Lymphocytes % Monocytes % Eosinophils % Basophils % Nucleated RBC % Sodium 138 Potassium 4.4 Chloride 108 H Carbon Dioxide 19 L Anion Gap 11 BUN 13.3 Creatinine 0.7 Est GFR (CKD-EPI)AfAm 109.15 Est GFR (CKD-EPI)NonAf 94.17 POC Glucometer 171 Random Glucose 189 H Calcium 7.9 L Phosphorus 3.1 Magnesium 2.0 Total Bilirubin 0.5 AST 16 ALT 14 Alkaline Phosphatase 47 Total Protein 4.6 L Albumin 2.1 L Active Medications Generic Name Dose Route Start Last Admin Trade Name Freq PRN Reason Stop Dose Admin Acetaminophen 1,000 mg 02/13/19 03:00 02/13/19 02:19 Ofirmev Injection - IVPB 1,000 mg Q6H-IV [facility] Administration Chlorhexidine Gluconate 1 applic 02/12/19 22:00 02/12/19 23:40 Hibiclens For Decolonization - TP 1 applic HS AMA[facility] Administration Hydromorphone HCl 10 mg 02/12/19 21:58 02/12/19 22:03 Hydromorphone 10 Mg/50 Ml-Ns LEAD CLINICAL RESEARCH COORDINATOR 02/13/19 10:59 Not Given LEAD CLINICAL RESEARCH COORDINATOR AMA[facility] Protocol Dextrose/Lactated Ringer's 1,000 mls @ 150 mls/hr 02/12/19 21:58 02/12/19 22: 03 D5-Lr - IV 150 mls/hr ASDIR A[facility] Administration Piperacillin Sod/Tazobactam 100 mls @ 200 mls/hr 02/13/19 00:00 02/12/19 23: 50 Sod 4.5 gm/ Dextrose IVPB 200 mls/hr Q8H-IV [facility] Administration Insulin Aspart 1 vial 02/12/19 22:00 02/13/19 06:02 Novolog Vial Sliding Scale - SQ 2 units ACHS A[facility] Administration Protocol Mupirocin 1 applic 02/12/19 22:00 02/13/19 02:01 Bactroban Ointment (For Decolonization) - NS 02/17/19 21:59 1 applic BID AMAURI Administration Ondansetron HCl 4 mg 02/12/19 21:58 Zofran Injection IVPUSH Q6H PRN NAUSEA AND/OR VOMITING ASSESSMENT/PLAN: 58F pmh IDDM, fibroids s/p myomectomy, h/o appendectomy presented to [facility] w/ f/c /n/v/, constipation, and abdominal pain; CT found cecal volvulus w/ obstruction. Pt s/p ileocectomy w/ lysis of adhesions. Admitted to ICU for monitoring of BP after she was found have post-op hypotension. CARD - Hypotension likely 2/2 fluid loss 2/2 surgery vs sepsis -continue to monitor BP. pt reports her BP usually is low. -c/w tele monitoring -c/w aggressive fluid repletion w/ LR @ 150 mls/ hr GI - s/p ileocecectomy w/ lysis of adhesions - s/p ileocecal volvulus w/ obstruction and h/o abdominal surgeries - op report shows some localized intra-op spillage at anastomoses - soft, ndnt abdominal exam w/ hypoactive BS - NPO until flatus - OOB - IS - NGT wall suction - LEAD CLINICAL RESEARCH COORDINATOR for pain ctrl - zofran prn FEN - Weldon - monitor Ur output - monitor lytes - LR 150cc/h ENDO - IDDM - AISS ID - post-op abx ppx - zosyn 4.5 q8h - f/u cx PPX - SCD - Start Heparin SQ per surgery DISPO - patient request transfer to med/surg - transfer status pending surgery eval. Visit type - Emergency Visit Emergency Visit: No - New Patient This patient is new to me today: No - Critical Care Critical Care patient: No
[2019-02-13] MEDS: PIPERACILLIN/TAZOB 4.5 GM 4.5 GM in DEXTROSE 5%-WATER 100 ML IVPB SCH ×2 (09:30→17:34)
--- NOTE | 2019-02-13 10:55 | PN ---
Teaching Attending Note Name of Resident: Martin Savage ATTENDING PHYSICIAN STATEMENT I saw and evaluated the patient. I reviewed the resident's note and discussed the case with the resident. I agree with the resident's findings and plan as documented. SUBJECTIVE: Pt seen and examined in the ICU. Reports pain controlled with current regimen. Denies shortness of breath or chest pain. No flatus. Good urine output. OBJECTIVE: Vital Signs Period Temp Pulse Resp BP Sys/Rush Pulse Ox Last 24 Hr 97.8 F-99.1 F 64-101 10-24 82-141/49-79 95-100 Intake & Output 02/10/19 02/11/19 02/12/19 02/13/19 23:59 23:59 23:59 23:59 Intake Total 4800 2950 Output Total 1270 2025 Balance 3530 925 Weight 70.307 kg 69.485 kg 72.2 kg Gen: NAD at rest Heart: RRR Lung: decreased breath sounds at the bases Abd: soft, dressings d/c/i Ext: no edema CBC, BMP 02/13/19 05:15 02/13/19 05:15 Active Medications Acetaminophen (Ofirmev Injection -) 1,000 mg IVPB Q6H-IV [facility] Last Admin: 02/13/19 02:19 Dose: 1,000 mg Chlorhexidine Gluconate (Hibiclens For Decolonization -) 1 applic TP HS [facility] Last Admin: 02/12/19 23:40 Dose: 1 applic Heparin Sodium (Porcine) (Heparin -) 5,000 unit SQ TID [facility] Hydromorphone HCl (Hydromorphone 10 Mg/50 Ml-Ns) 10 mg FEED HANDLER FEED HANDLER [facility]; Protocol Stop: 02/13/19 10:59 Last Admin: 02/12/19 22:03 Dose: Not Given Dextrose/Lactated Ringer's (D5-Lr -) 1,000 mls @ 150 mls/hr IV ASDIR [facility] Last Admin: 02/12/19 22:03 Dose: 150 mls/hr Piperacillin Sod/Tazobactam (Sod 4.5 gm/ Dextrose) 100 mls @ 200 mls/hr IVPB Q8H-IV [facility] Last Admin: 02/12/19 23:50 Dose: 200 mls/hr Insulin Aspart (Novolog Vial Sliding Scale -) 1 vial SQ ACHS [facility]; Protocol Last Admin: 02/13/19 06:02 Dose: 2 units Mupirocin (Bactroban Ointment (For Decolonization) -) 1 applic NS BID [facility] Stop: 02/17/19 21:59 Last Admin: 02/13/19 02:01 Dose: 1 applic Ondansetron HCl (Zofran Injection) 4 mg IVPUSH Q6H PRN PRN Reason: NAUSEA AND/OR VOMITING ASSESSMENT AND PLAN: Cecal Volvulus s/p ex-lap/Ileocecectomy/RAIN r/o Peritonitis/Sepsis DM h/o Fibroids h/o Appendectomy - IVF - monitor urine output, creatinine - continue antibiotics - f/u cultures - pain control - incentive spirometry - OOB to chair - await return of bowel function - DVT prophylaxis - disposition per surgery
--- NOTE | 2019-02-13 11:01 | PN ---
Progress Note, Physician Chief Complaint: offers no complaints, denies pain History of Present Illness: Patient is a 58 year old female who was admitted overnight for 9cm cecal volvulus with obstruction. She was taken to the OR on 02/12 and is now s/p ileocecectomy with lysis of adhesions. She was upgraded to the ICU for hypotension. - Current Medication List Current Medications: Active Medications Acetaminophen (Ofirmev Injection -) 1,000 mg IVPB Q6H-IV [facility] Last Admin: 02/13/19 02:19 Dose: 1,000 mg Chlorhexidine Gluconate (Hibiclens For Decolonization -) 1 applic TP HS [facility] Last Admin: 02/12/19 23:40 Dose: 1 applic Heparin Sodium (Porcine) (Heparin -) 5,000 unit SQ TID [facility] Dextrose/Lactated Ringer's (D5-Lr -) 1,000 mls @ 150 mls/hr IV ASDIR [facility] Last Admin: 02/12/19 22:03 Dose: 150 mls/hr Piperacillin Sod/Tazobactam (Sod 4.5 gm/ Dextrose) 100 mls @ 200 mls/hr IVPB Q8H-IV [facility] Last Admin: 02/12/19 23:50 Dose: 200 mls/hr Insulin Aspart (Novolog Vial Sliding Scale -) 1 vial SQ ACHS [facility]; Protocol Last Admin: 02/13/19 06:02 Dose: 2 units Mupirocin (Bactroban Ointment (For Decolonization) -) 1 applic NS BID [facility] Stop: 02/17/19 21:59 Last Admin: 02/13/19 02:01 Dose: 1 applic Ondansetron HCl (Zofran Injection) 4 mg IVPUSH Q6H PRN PRN Reason: NAUSEA AND/OR VOMITING - Objective Vital Signs: Vital Signs Temperature 98 F 02/13/19 06:00 Pulse Rate 87 02/13/19 07:40 Respiratory Rate 16 02/13/19 08:21 Blood Pressure 104/63 02/13/19 07:00 O2 Sat by Pulse Oximetry (%) 100 02/13/19 08:21 Constitutional: Yes: Well Nourished, No Distress Eyes: Yes: WNL HENT: Yes: Atraumatic Neck: Yes: Supple Cardiovascular: Yes: Regular Rate and Rhythm Labs: CBC, BMP 02/13/19 05:15 09/03/19 05:15 INR, PTT INR 0.94 (0.83-1.09) 02/12/19 00:00 Impression/Plan Impression/Plan: patient is a 58 year old woman with a PMHx of IDDM. Who presented to [place] ED for abdominal pain with constipation and nausea/vomiting. Patient reports being constipated x 3 days taking laxatives and 2 enemas without relief. On CT patient noted to have 9cm cecal-volvulus with obstruction. 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 Assessment/Plan: Appreciate Surgical care- Dr You following NPO NGT placed to low wall suction Zosyn Continue IVF -D5W LR Pain Management Zofran prn trend WBC and temp curve follow up peritoneal fluid culture, blood and urine cultures (2) Diabetes mellitus, insulin dependent (IDDM), controlled Assessment/Plan: BGM Q6hrs Hold ISS secondary to NPO -D5W LR 125ml/hr (3) post-op hypotension -aggressive fluid repletion -transferred to ICU for closer monitoring (4) PPX -Weldon -SCDS -incentive spirometry Code status: Full pt requires inpt care. Visit type - Emergency Visit Emergency Visit: Yes ED Registration Date: 02/12/19 Care time: The patient presented to the Emergency Department on the above date and was hospitalized for further evaluation of their emergent condition. - New Patient This patient is new to me today: Yes Date on this admission: 02/13/19 - Critical Care Critical Care patient: Yes Total Critical Care Time (in minutes): 45 Critical Care Statement: The care of this patient involved high complexity decision making to prevent further life threatening deterioration of the patient 's condition and/or to evaluate & treat vital organ system(s) failure or risk of failure.
--- NOTE | 2019-02-13 12:33 | PN ---
Progress Note, Physician History of Present Illness: patient doing well no issues ng in place - Current Medication List Current Medications: Active Medications Acetaminophen (Ofirmev Injection -) 1,000 mg IVPB Q6H-IV [facility] Last Admin: 02/13/19 09:30 Dose: 1,000 mg Chlorhexidine Gluconate (Hibiclens For Decolonization -) 1 applic TP HS [facility] Last Admin: 02/12/19 23:40 Dose: 1 applic Heparin Sodium (Porcine) (Heparin -) 5,000 unit SQ TID [facility] Dextrose/Lactated Ringer's (D5-Lr -) 1,000 mls @ 150 mls/hr IV ASDIR [facility] Last Admin: 02/12/19 22:03 Dose: 150 mls/hr Piperacillin Sod/Tazobactam (Sod 4.5 gm/ Dextrose) 100 mls @ 200 mls/hr IVPB Q8H-IV [facility] Last Admin: 02/13/19 09:30 Dose: 200 mls/hr Insulin Aspart (Novolog Vial Sliding Scale -) 1 vial SQ ACHS [facility]; Protocol Last Admin: 02/13/19 12:00 Dose: 2 units Mupirocin (Bactroban Ointment (For Decolonization) -) 1 applic NS BID [facility] Stop: 02/17/19 21:59 Last Admin: 02/13/19 02:01 Dose: 1 applic Ondansetron HCl (Zofran Injection) 4 mg IVPUSH Q6H PRN PRN Reason: NAUSEA AND/OR VOMITING - Objective Vital Signs: Vital Signs Temperature 98 F 02/13/19 06:00 Pulse Rate 87 02/13/19 07:40 Respiratory Rate 16 02/13/19 08:21 Blood Pressure 104/63 02/13/19 07:00 O2 Sat by Pulse Oximetry (%) 100 02/13/19 08:21 Constitutional: Yes: No Distress, Calm Cardiovascular: Yes: S1, S2 Respiratory: Yes: Regular, CTA Bilaterally Gastrointestinal: Yes: Other (absent bowel sounds,ng tube in place) Musculoskeletal: Yes: WNL Extremities: Yes: WNL Labs: CBC, BMP 02/13/19 05:15 02/13/19 05:15 INR, PTT INR 0.94 (0.83-1.09) 02/12/19 00:00 Assessment/Plan Problem List - Problems (1) Cecal volvulus Code(s): K56.2 - VOLVULUS (2) Diabetes mellitus, insulin dependent (IDDM), controlled Code(s): E11.9 - TYPE 2 DIABETES MELLITUS WITHOUT COMPLICATIONS; Z79.4 - CARE ADMINISTRATIVE TECH (CURRENT) USE OF 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 female with PMH of IDDM, fibroids s/p myomectomy, liposuction, and appendectomy presented with c/o abd pain/n/v that began 3 days ago Cecal volvulus/SBO s/p ileocecectomy and RAIN POD#0 IDDM Hx Fibroids s/p myomectomy -- operative note reviewed -- continue Zosyn empirically -- follow up peritoneal fluid culture results -- monitor temp trend/vitals -- Surgery following, case d/w Dr. You
[2019-02-13] MEDS ORDERED: PT OWN MED DRAWER 7, Y5N ONE ×2 (12:57→22:09)
--- NOTE | 2019-02-13 13:58 | PN ---
Progress Note (short form) - Note Progress Note: Post op day#1.S/P Lapratomy under Ga uneventfu.P93,BP101/68 and Spo2 100 on O2 3l.Patient stable.No any anesthesia related problem.Patient Dc from the anesthesia care.
[2019-02-13] MEDS: HEPARIN NA (PORCINE) 5,000 UNITS/ML 1ML VIAL SQ SCH ×2 (17:27→21:36)
[2019-02-13] MEDS: DEXTROSE 5%-LACTATED RINGERS 1,000 ML IV SCH ×2 (17:31→21:34)
[2019-02-13] MEDS ORDERED: BENZOCAINE/MENTH/CETYLPYRD CL 1 EACH LOZENGE MM PRN (18:10)
--- NOTE | 2019-02-13 18:17 | PN ---
Progress Note, Physician History of Present Illness: Pt s/p ileocecectomy with lysis of adhesions for cecal volvulus. Transferred to ICU last evening for hypotension, tachycardia, low UOP; third-spacing fluids postop, in part likely related to correction of volvulus before resection and systemic distribution of inflammatory mediators from compromised cecum. She has received fluids and responded well with good UOP, adequate BPs and intermittent mild tachycardia. 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 Using IS with good effort. Has been OOB to chair. Weldon and NGT in place, with little NG output, greenish. She is seen and examined in bed. She c/o discomfort from the NGT, but overall feels better. Family arrived during exam. - Current Medication List Current Medications: Active Medications Acetaminophen (Ofirmev Injection -) 1,000 mg IVPB Q6H-IV [facility] Last Admin: 02/13/19 15:51 Dose: 1,000 mg Chlorhexidine Gluconate (Hibiclens For Decolonization -) 1 applic TP HS [facility] Last Admin: 02/12/19 23:40 Dose: 1 applic Heparin Sodium (Porcine) (Heparin -) 5,000 unit SQ TID [facility] Last Admin: 02/13/19 17:27 Dose: 5,000 unit Dextrose/Lactated Ringer's (D5-Lr -) 1,000 mls @ 150 mls/hr IV ASDIR [facility] Last Admin: 02/13/19 17:31 Dose: 150 mls/hr Piperacillin Sod/Tazobactam (Sod 4.5 gm/ Dextrose) 100 mls @ 200 mls/hr IVPB Q8H-IV [facility] Last Admin: 02/13/19 17:34 Dose: 200 mls/hr Insulin Aspart (Novolog Vial Sliding Scale -) 1 vial SQ ACHS [facility]; Protocol Last Admin: 02/13/19 17:46 Dose: 2 units Mupirocin (Bactroban Ointment (For Decolonization) -) 1 applic NS BID [facility] Stop: 02/17/19 21:59 Last Admin: 02/13/19 17:26 Dose: 1 applic Ondansetron HCl (Zofran Injection) 4 mg IVPUSH Q6H PRN PRN Reason: NAUSEA AND/OR VOMITING - Objective Vital Signs: Vital Signs Temperature 98 F 02/13/19 06:00 Pulse Rate 87 02/13/19 07:40 Respiratory Rate 16 02/13/19 08:21 Blood Pressure 104/63 02/13/19 07:00 O2 Sat by Pulse Oximetry (%) 100 02/13/19 08:21 Vital Signs Period Temp Pulse Resp BP Sys/Rush Pulse Ox Last 24 Hr 97.8 F-98 F 64-101 10-24 84-127/50-73 98-100 Intake & Output 02/13/19 02/13/19 02/13/19 07:59 15:59 23:59 Intake Total 2950 Output Total 2024 Balance 925 Weight 159 lb 2.78 oz Intake: IV 2850 D5-Lr - 1,000 ml @ 150 1350 mls/hr IV ASDIR [facility] Rx#: [id number] Normal Saline - 1,000 ml 1000 @ 1000 mls/hr IV ASDIR [facility] Rx#:[id number] Normal Saline - 500 ml @ 500 500 mls/hr IV ASDIR [facility] Rx#:[id number] IVPB 100 Oral 0 Output: Gastric Drainage 25 Urine 2000 Weldon 2000 1500 Other: Voiding Method Indwelling Catheter Indwelling Catheter Bowel Movement No Weight Measurement Method Built in [facility] Constitutional: Yes: Well Nourished, No Distress, Calm Eyes: Yes: Conjunctiva Clear, EOM Intact HENT: Yes: Atraumatic, Normocephalic, Other (NGT in place, sumping ok, minimal greenish output) Gastrointestinal: Yes: Soft, Distention (mild/minimal), Hypoactive Bowel Sounds , Tenderness (mild RLQ, mild incisional). No: Tenderness, Rebound Genitourinary: Yes: Weldon Present. No: Hematuria Extremities: No: Cool, Cyanosis Integumentary: Yes: Incision (midline dressed), Skin Tear (tiny spot right upper abdomen from dressing tape - will put bacitracin/bandaid on it). No: Jaundice, Rash Wound/Incision: Yes: Well Approximated (except for two open areas (intentional)) , [place] Intact, Dressing Removed (packing removed from 2 wounds - saline-damp gauze replaced in each, covered with folded gauze and ABD pad over entire incision, secured with tape), Bleeding (tiny skin edge bleeder at upper open site - stopped with silver nitrate), Unapproximated (two sites - at upper and lower ends of incision - healing by secondary intention; dressing changed - wounds clean, yellow/red-based, no necrotic tissue or infection). No: Dressing Dry and Intact (was reinforced yesterday for serosang drainage through initial dressing, outer ABD pad clean and dry) Neurological: Yes: Alert, Oriented Labs: CBC, BMP 02/13/19 05:15 02/13/19 05:15 Microbiology 02/12/19 10:00 Gram Stain - Final Peritoneal Fluid Body Fluid Culture - Preliminary NO AEROBIC GROWTH, 24 HRS 02/12/19 00:00 Urine Culture - Final Urine - Urine Clean Catch NO GROWTH OBTAINED 02/11/19 19:30 Blood Culture - Preliminary Blood - Peripheral Venous NO GROWTH OBTAINED AFTER 24 HOURS, INCUBATION TO CONTINUE FOR 4 DAYS. 02/11/19 19:00 Blood Culture - Preliminary Blood - Peripheral Venous NO GROWTH OBTAINED AFTER 24 HOURS, INCUBATION TO CONTINUE FOR 4 DAYS. CMP Sodium 138 mmol/L (136-145) 02/13/19 05:15 Potassium 4.4 mmol/L (3.5-5.1) 02/13/19 05:15 Chloride 108 mmol/L (98-107) H 02/13/19 05:15 Carbon Dioxide 19 mmol/L (21-32) L 02/13/19 05:15 Anion Gap 11 MMOL/L (8-16) 02/13/19 05:15 BUN 13.3 mg/dL (7-18) 02/13/19 05:15 Creatinine 0.7 mg/dL (0.55-1.3) 02/13/19 05:15 Est GFR (CKD-EPI)AfAm 109.15 02/13/19 05:15 Est GFR (CKD-EPI)NonAf 94.17 02/13/19 05:15 POC Glucometer 179 UNITS (80-120) 02/13/19 11:57 Random Glucose 189 mg/dL (74-106) H 02/13/19 05:15 Lactic Acid 1.1 mmol/L (0.4-2.0) 02/11/19 18:59 Calcium 7.9 mg/dL (8.5-10.1) L 02/13/19 05:15 Phosphorus 3.1 mg/dL (2.5-4.9) 02/13/19 05:15 Magnesium 2.0 mg/dL (1.8-2.4) 02/13/19 05:15 Total Bilirubin 0.5 mg/dL (0.2-1) 02/13/19 05:15 AST 16 U/L (15-37) 02/13/19 05:15 ALT 14 U/L (13-61) 02/13/19 05:15 Alkaline Phosphatase 47 U/L (45-117) 02/13/19 05:15 Troponin I < 0.03 ng/ml (0.00-0.05) 02/11/19 19:00 Total Protein 4.6 g/dl (6.4-8.2) L 02/13/19 05:15 Albumin 2.1 g/dl (3.4-5.0) L 02/13/19 05:15 Lipase 139 U/L (73-393) 02/11/19 19:00 Problem List - Problems (1) Cecal volvulus Assessment/Plan: POD1 s/p ileocecectomy with lysis of adhesions for cecal volvulus doing well continue NPO/IVF/NGT NG will stay until bowel function resumes postop continue Weldon for accurate I/Os continue IV antibiotics, ID on board [employer]ICE [employer]NAGER w/IV tylenol GI/DVT prophylaxis ok for cepacol lozenges for NG discomfort bacitracin to skin tear on abdominal wall midline wound dressings will be changed with damp-to-dry saline gauze or 1/2" plain ribbon packing daily pt will need VNS on d/c home for wound care, family will learn dressing changes as well OOB as able IS/pulm toilet await resumption of bowel function This patient is critically ill. Time spent reviewing chart, examining patient, talking with providers and/or family and documentation is 55 minutes. discussed with Drs. Lopez and Hussein on ICU team. Code(s): K56.2 - VOLVULUS (2) Other complete intestinal obstruction Assessment/Plan: resolved postop - awaiting resumption of bowel function Code(s): K56.691 - OTHER COMPLETE INTESTINAL OBSTRUCTION (3) Generalized abdominal pain Assessment/Plan: improved/resolved - now with postop pain, mild Code(s): R10.84 - GENERALIZED ABDOMINAL PAIN (4) Nausea & vomiting Assessment/Plan: resolved Code(s): R11.2 - NAUSEA WITH VOMITING, UNSPECIFIED Qualifiers: Vomiting type: unspecified Vomiting Intractability: non-intractable Qualified Code(s): R11.2 - Nausea with vomiting, unspecified (5) Diabetes mellitus, insulin dependent (IDDM), controlled Assessment/Plan: FS with sliding scale insulin defer to medicine for glucose management Code(s): E11.9 - TYPE 2 DIABETES MELLITUS WITHOUT COMPLICATIONS; Z79.4 - INTERMEDIATE (CURRENT) USE OF INSULIN
[2019-02-13] MEDS: BACITRACIN 15 GM TUBE TOPICAL OINTMENT TP SCH (21:35)
[2019-02-13] MEDS: CHLORHEXIDINE GLUCONATE 4% CLEANSER FOR DECOLONIZATION TP SCH (21:36)
[2019-02-14] MEDS ORDERED: PIPERACILLIN/TAZOBACTAM 4.5 GM VIAL IVPB ONE ×4 (00:10→22:46)
[2019-02-14] MEDS ORDERED: DEXTROSE 5%-WATER 100 ML IVPB ONE ×4 (00:10→22:47)
[2019-02-14] MEDS ORDERED: PT OWN MED DRAWER 7, Y5N ONE (00:35)
[2019-02-14] MEDS: PIPERACILLIN/TAZOB 4.5 GM 4.5 GM in DEXTROSE 5%-WATER 100 ML IVPB SCH ×3 (02:37→17:33)
[2019-02-14] MEDS: ACETAMINOPHEN 1000 MG/100 ML VIAL (NON FORMULARY) IVPB SCH ×3 (02:37→16:00)
[2019-02-14] MEDS: MORPHINE SULFATE 2 MG/ML VIAL IVPUSH PRN ×3 (02:48→22:09)
[2019-02-14] MEDS: HEPARIN NA (PORCINE) 5,000 UNITS/ML 1ML VIAL SQ SCH ×3 (05:15→21:36)
[2019-02-14] MEDS: INSULIN SLIDING SCALE (NOVOLOG) 1 VIAL SQ SCH ×4 (06:35→21:36)
--- NOTE | 2019-02-14 07:51 | PN ---
Physical Exam: SUBJECTIVE: Patient seen and examined at bedside. pt states she has back pain and that it is difficult to sleep in the bed. OBJECTIVE: Vital Signs Period Temp Pulse Resp BP Sys/Rush Pulse Ox Last 24 Hr 97.8 F-98.7 F 66-99 9-21 85-117/51-93 99-100 GENERAL: The patient is awake, alert, and fully oriented, in no acute distress. LUNGS: Breath sounds equal, clear to auscultation bilaterally, no wheezes, no crackles, no accessory muscle use. HEART: Regular rate and rhythm, S1, S2 without murmur, rub or gallop. ABDOMEN: Soft, nontender, nondistended, hypoactive bowel sounds, no guarding EXTREMITIES: 2+ pulses, warm, well-perfused, no edema. SKIN: Warm, dry, normal turgor, no rashes or lesions noted Laboratory Results - last 24 hr 02/13/19 02/13/19 02/13/19 11:57 17:44 22:02 POC Glucometer 179 171 165 02/14/19 05:26 POC Glucometer 204 Current Medications Acetaminophen (Ofirmev Injection -) 1,000 mg IVPB Q6H-IV [facility] Last Admin: 02/14/19 02:37 Dose: 1,000 mg Bacitracin (Bacitracin -) 1 applic TP BID [facility] Last Admin: 02/13/19 21:35 Dose: 1 applic Benzocaine/Menthol (Cepacol Lozenge -) 1 each MM PRN PRN PRN Reason: SORE THROAT Last Admin: 02/13/19 22:35 Dose: 1 each Chlorhexidine Gluconate (Hibiclens For Decolonization -) 1 applic TP HS [facility] Last Admin: 02/13/19 21:36 Dose: 1 applic Heparin Sodium (Porcine) (Heparin -) 5,000 unit SQ TID [facility] Last Admin: 02/14/19 05:15 Dose: 5,000 unit Dextrose/Lactated Ringer's (D5-Lr -) 1,000 mls @ 150 mls/hr IV ASDIR [facility] Last Admin: 02/13/19 21:34 Dose: 150 mls/hr Piperacillin Sod/Tazobactam (Sod 4.5 gm/ Dextrose) 100 mls @ 200 mls/hr IVPB Q8H-IV [facility] Last Admin: 02/14/19 02:37 Dose: 200 mls/hr Insulin Aspart (Novolog Vial Sliding Scale -) 1 vial SQ ACHS [facility]; Protocol Last Admin: 02/14/19 06:35 Dose: 4 units Morphine Sulfate (Morphine Sulfate) 2 mg IVPUSH Q6H PRN PRN Reason: PAIN LEVEL 7-10 Last Admin: 02/14/19 02:48 Dose: 2 mg Mupirocin (Bactroban Ointment (For Decolonization) -) 1 applic NS BID [facility] Stop: 02/17/19 21:59 Last Admin: 02/13/19 21:35 Dose: 1 applic Ondansetron HCl (Zofran Injection) 4 mg IVPUSH Q6H PRN PRN Reason: NAUSEA AND/OR VOMITING ASSESSMENT/PLAN: 58 yo F w/ PMH of IDDM, fibroids (s/p myomectomy), liposuction, appendectomy presenting with fevers, chills, abdominal pain, n/v, constipation presented to [place] ED and found to have cecal volvulus w/ obstruction on CT. Pt is s/p ileocecectomy with lysis of adhesions. Pt is admitted to ICU for close BP monitoring post op. s/p ileocecectomy with lysis of adhesions. IDDM Hypotention Neuro -Pt is neurologically intact, Awake, alert, oriented x3 GI -s/p ileocecectomy with lysis of adhesions. -possible localized spillage during surgery -c/w Zosyn TID day 3 -c/w hydromorphone 10 mg PRICING SUPERVISOR for pain control, ofirimev q6 prn -cultures negative to date -NGT to low wall suction -Zofran prn Pulm -c/w ICS Cardio:hypotension likely 2/2 fluid loss 2/2 surgery vs sepsis -continue to monitor BP. pt reports her BP usually is low. -c/w tele monitoring -c/w aggressive fluid repletion w/ LR @ 150 mls/ hr ENDO - IDDM - c/w BGM and ISS DVT ppx: SCDs , Hep SQ -c/w muir F/E/N -LR @ 150 mls/hr -monitor lytes -NPO until flatus - continue w/ muir to monitore U output Code Status: pt is full code Dispo: as per surg team Visit type - Emergency Visit Emergency Visit: No - New Patient This patient is new to me today: No - Critical Care Critical Care patient: Yes Total Critical Care Time (in minutes): 37 Critical Care Statement: The care of this patient involved high complexity decision making to prevent further life threatening deterioration of the patient 's condition and/or to evaluate & treat vital organ system(s) failure or risk of failure. - Discharge Referral Referred to [facility] No ATTENDING PHYSICIAN STATEMENT I saw and evaluated the patient. I reviewed the resident's note and discussed the case with the resident. I agree with the resident's findings and plan as documented. SUBJECTIVE: OBJECTIVE: ASSESSMENT AND PLAN:
[2019-02-14] MEDS: DEXTROSE 5%-LACTATED RINGERS 1,000 ML IV SCH (08:20)
[2019-02-14] MEDS: MUPIROCIN 2% TOPICAL OINTMENT FOR DECOLONIZATION NS SCH ×2 (09:03→21:36)
[2019-02-14] MEDS: BACITRACIN 15 GM TUBE TOPICAL OINTMENT TP SCH ×2 (09:03→21:35)
--- NOTE | 2019-02-14 09:31 | PN ---
Progress Note, Physician Chief Complaint: offers no complaints, denies pain History of Present Illness: Patient is a 58 year old female who was admitted overnight for 9cm cecal volvulus with obstruction. She was taken to the OR on 02/12 and is now s/p ileocecectomy with lysis of adhesions. She was upgraded to the ICU for hypotension. - Current Medication List Current Medications: Active Medications Acetaminophen (Ofirmev Injection -) 1,000 mg IVPB Q6H-IV [facility] Last Admin: 02/14/19 08:21 Dose: 1,000 mg Bacitracin (Bacitracin -) 1 applic TP BID [facility] Last Admin: 02/14/19 09:03 Dose: 1 applic Benzocaine/Menthol (Cepacol Lozenge -) 1 each MM PRN PRN PRN Reason: SORE THROAT Last Admin: 02/13/19 22:35 Dose: 1 each Chlorhexidine Gluconate (Hibiclens For Decolonization -) 1 applic TP HS [facility] Last Admin: 02/13/19 21:36 Dose: 1 applic Heparin Sodium (Porcine) (Heparin -) 5,000 unit SQ TID [facility] Last Admin: 02/14/19 05:15 Dose: 5,000 unit Dextrose/Lactated Ringer's (D5-Lr -) 1,000 mls @ 150 mls/hr IV ASDIR [facility] Last Admin: 02/14/19 08:20 Dose: 150 mls/hr Piperacillin Sod/Tazobactam (Sod 4.5 gm/ Dextrose) 100 mls @ 200 mls/hr IVPB Q8H-IV [facility] Last Admin: 02/14/19 09:05 Dose: 200 mls/hr Insulin Aspart (Novolog Vial Sliding Scale -) 1 vial SQ ACHS [facility]; Protocol Last Admin: 02/14/19 06:35 Dose: 4 units Morphine Sulfate (Morphine Sulfate) 2 mg IVPUSH Q6H PRN PRN Reason: PAIN LEVEL 7-10 Last Admin: 02/14/19 07:48 Dose: 2 mg Mupirocin (Bactroban Ointment (For Decolonization) -) 1 applic NS BID [facility] Stop: 02/17/19 21:59 Last Admin: 02/14/19 09:03 Dose: 1 applic Ondansetron HCl (Zofran Injection) 4 mg IVPUSH Q6H PRN PRN Reason: NAUSEA AND/OR VOMITING - Objective Vital Signs: Vital Signs Temperature 98.5 F 02/14/19 07:48 Pulse Rate 102 H 02/14/19 07:48 Respiratory Rate 22 H 02/14/19 07:48 Blood Pressure 119/62 02/14/19 07:48 O2 Sat by Pulse Oximetry (%) 100 02/14/19 07:48 Constitutional: Yes: Well Nourished, No Distress Eyes: Yes: WNL HENT: Yes: Atraumatic Neck: Yes: Supple Cardiovascular: Yes: Regular Rate and Rhythm Respiratory: Yes: Regular Gastrointestinal: Yes: Distention, Tenderness ...Rectal Exam: Yes: Deferred Musculoskeletal: Yes: WNL Integumentary: Yes: WNL Neurological: Yes: Alert, Oriented Labs: CBC, BMP 02/13/19 05:15 02/13/19 05:15 INR, PTT INR 0.94 (0.83-1.09) 02/12/19 00:00 Problem List - Problems (1) Abdominal pain Assessment/Plan: cecal volvulus s/; ileocecectomy with lysis of adhesions. surgery following continue pain management NGT to low intermittent suction Code(s): R10.9 - UNSPECIFIED ABDOMINAL PAIN (2) Bowel obstruction Assessment/Plan: Appreciate Surgical care- Dr You following NPO NGT placed to low wall suction Zosyn Continue IVF Pain Management Zofran prn trend WBC and temp curve follow up peritoneal fluid culture. blood culture/urine culture negative. Code(s): K56.609 - UNSP INTESTNL OBST, UNSP TO PARTIAL VERSUS COMPLETE OBST Qualifiers: Intestinal obstruction type: volvulus Qualified Code(s): K56.2 - Volvulus (3) Cecal volvulus Assessment/Plan: surgery following. living supervisor NGT placed to low wall suction, monitor output Code(s): K56.2 - VOLVULUS (4) Diabetes mellitus, insulin dependent (IDDM), controlled Assessment/Plan: monitor bgms q 4 while npo bgms are stable Code(s): E11.9 - TYPE 2 DIABETES MELLITUS WITHOUT COMPLICATIONS; Z79.4 - LEVEL VIAL GRINDER (CURRENT) USE OF INSULIN (5) Prophylactic measure Assessment/Plan: fen on d5/lr monitor electrolytes advance diet per surgery full code Code(s): Z29.9 - ENCOUNTER FOR PROPHYLACTIC MEASURES, UNSPECIFIED Visit type - Emergency Visit Emergency Visit: Yes ED Registration Date: 02/12/19 Care time: The patient presented to the Emergency Department on the above date and was hospitalized for further evaluation of their emergent condition. - New Patient This patient is new to me today: No - Critical Care Critical Care patient: Yes Total Critical Care Time (in minutes): 45 Critical Care Statement: The care of this patient involved high complexity decision making to prevent further life threatening deterioration of the patient 's condition and/or to evaluate & treat vital organ system(s) failure or risk of failure.
[2019-02-14 10:01] LABS: BASO % 0.6 % (0-2.0); EOS % 2.7 % (0-4.5); HEMATOCRIT 31.6 % (32.4-45.2); HEMOGLOBIN 10.6 GM/dL (10.7-15.3); LYMPH % 6.5 % (8-40); MCH 34.6 pg (25.7-33.7); MCHC 33.5 g/dl (32.0-36.0); MEAN CELL VOLUME 103.2 fl (80-96); MEAN PLT VOLUME 6.9 fl (7.5-11.1); MONO % 7.7 % (3.8-10.2); NEUT % 82.5 % (42.8-82.8); PLATELET COUNT 277 K/MM3 (134-434); RBC 3.06 M/mm3 (3.60-5.2); WHITE BLOOD COUNT 9.9 K/mm3 (4.0-10.0)
--- NOTE | 2019-02-14 10:24 | PN ---
Progress Note, Physician History of Present Illness: patient stable still not passing gases back pain - Current Medication List Current Medications: Active Medications Acetaminophen (Ofirmev Injection -) 1,000 mg IVPB Q6H-IV [facility] Last Admin: 02/14/19 08:21 Dose: 1,000 mg Bacitracin (Bacitracin -) 1 applic TP BID [facility] Last Admin: 02/14/19 09:03 Dose: 1 applic Benzocaine/Menthol (Cepacol Lozenge -) 1 each MM PRN PRN PRN Reason: SORE THROAT Last Admin: 02/13/19 22:35 Dose: 1 each Chlorhexidine Gluconate (Hibiclens For Decolonization -) 1 applic TP HS [facility] Last Admin: 02/13/19 21:36 Dose: 1 applic Heparin Sodium (Porcine) (Heparin -) 5,000 unit SQ TID [facility] Last Admin: 02/14/19 05:15 Dose: 5,000 unit Dextrose/Lactated Ringer's (D5-Lr -) 1,000 mls @ 150 mls/hr IV ASDIR [facility] Last Admin: 02/14/19 08:20 Dose: 150 mls/hr Piperacillin Sod/Tazobactam (Sod 4.5 gm/ Dextrose) 100 mls @ 200 mls/hr IVPB Q8H-IV [facility] Last Admin: 02/14/19 09:05 Dose: 200 mls/hr Insulin Aspart (Novolog Vial Sliding Scale -) [facility]; Protocol Last Admin: 02/14/19 06:35 Dose: 4 units Morphine Sulfate (Morphine Sulfate) 2 mg IVPUSH Q6H PRN PRN Reason: PAIN LEVEL 7-10 Last Admin: 02/14/19 07:48 Dose: 2 mg Mupirocin (Bactroban Ointment (For Decolonization) -) 1 applic NS BID [facility] Stop: 02/17/19 21:59 Last Admin: 02/14/19 09:03 Dose: 1 applic Ondansetron HCl (Zofran Injection) 4 mg IVPUSH Q6H PRN PRN Reason: NAUSEA AND/OR VOMITING - Objective Vital Signs: Vital Signs Temperature 98.5 F 02/14/19 07:48 Pulse Rate 102 H 02/14/19 07:48 Respiratory Rate 22 H 02/14/19 07:48 Blood Pressure 119/62 02/14/19 07:48 O2 Sat by Pulse Oximetry (%) 100 02/14/19 07:48 Constitutional: Yes: Calm, Mild Distress Cardiovascular: Yes: S1, S2 Respiratory: Yes: Regular, On Nasal O2, Poor Air Entry (bases) Gastrointestinal: Yes: Soft, Other (absent bowel sounds,ng tube in place) Musculoskeletal: Yes: WNL Extremities: Yes: WNL Wound/Incision: Yes: Dressing Dry and Intact Neurological: Yes: Alert, Oriented Labs: CBC, BMP 02/14/19 09:47 INR, PTT INR 0.94 (0.83-1.09) 02/12/19 00:00 Assessment/Plan Problem List - Problems (1) Cecal volvulus Code(s): K56.2 - VOLVULUS (2) Other complete intestinal obstruction Code(s): K56.691 - OTHER COMPLETE INTESTINAL OBSTRUCTION (3) Generalized abdominal pain Code(s): R10.84 - GENERALIZED ABDOMINAL PAIN (4) Nausea & vomiting Code(s): R11.2 - NAUSEA WITH VOMITING, UNSPECIFIED Qualifiers: Vomiting type: unspecified Vomiting Intractability: non-intractable Qualified Code(s): R11.2 - Nausea with vomiting, unspecified (5) Diabetes mellitus, insulin dependent (IDDM), controlled Code(s): E11.9 - TYPE 2 DIABETES MELLITUS WITHOUT COMPLICATIONS; Z79.4 - HELPER ELECTRICAL (CURRENT) USE OF 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 female with PMH of IDDM, fibroids s/p myomectomy, liposuction, and appendectomy presented with c/o abd pain/n/v that began 3 days ago Cecal volvulus/SBO s/p ileocecectomy and RAIN POD#0 IDDM Hx Fibroids s/p myomectomy -- operative note reviewed -- continue Zosyn await for finalization of the cx -- monitor temp trend/vitals await for gi functions to return cc 30 min
[2019-02-14 10:45] LABS: BILIRUBIN,TOTAL 0.5 mg/dL (0.2-1); BLOOD UREA NITROGEN 10.1 mg/dL (7-18); CALCIUM 8.2 mg/dL (8.5-10.1); CREATININE 0.6 mg/dL (0.55-1.3); MAGNESIUM 2.1 mg/dL (1.8-2.4); POTASSIUM 3.8 mmol/L (3.5-5.1); TOT PROT 4.9 g/dl (6.4-8.2)
--- NOTE | 2019-02-14 11:37 | PN ---
Teaching Attending Note Name of Resident: Madelyn Licona ATTENDING PHYSICIAN STATEMENT I saw and evaluated the patient. I reviewed the resident's note and discussed the case with the resident. I agree with the resident's findings and plan as documented. SUBJECTIVE: Pt seen and examined in the ICU. Pain controlled. No nausea or flatus. No fevers or chills. OBJECTIVE: Vital Signs Period Temp Pulse Resp BP Sys/Rush Pulse Ox Last 24 Hr 97.8 F-98.7 F 66-102 9-22 85-119/51-93 99-100 Intake & Output 02/11/19 02/12/19 02/13/19 02/14/19 23:59 23:59 23:59 23:59 Intake Total 4800 4619 1905 Output Total 1270 5125 1500 Balance 3530 -506 405 Weight 70.307 kg 69.485 kg 72.2 kg 71.1 kg Gen: NAD at rest Heart: RRR Lung: decreased breath sounds at the bases Abd: soft, nontender, dressing C/D/I Ext: no edema CBC, BMP 02/14/19 09:47 02/14/19 09:47 Active Medications Acetaminophen (Ofirmev Injection -) 1,000 mg IVPB Q6H-IV [facility] Last Admin: 02/14/19 08:21 Dose: 1,000 mg Bacitracin (Bacitracin -) 1 applic TP BID [facility] Last Admin: 02/14/19 09:03 Dose: 1 applic Benzocaine/Menthol (Cepacol Lozenge -) 1 each MM PRN PRN PRN Reason: SORE THROAT Last Admin: 02/13/19 22:35 Dose: 1 each Chlorhexidine Gluconate (Hibiclens For Decolonization -) 1 applic TP HS [facility] Last Admin: 02/13/19 21:36 Dose: 1 applic Heparin Sodium (Porcine) (Heparin -) 5,000 unit SQ TID [facility] Last Admin: 02/14/19 05:15 Dose: 5,000 unit Dextrose/Lactated Ringer's (D5-Lr -) 1,000 mls @ 150 mls/hr IV ASDIR [facility] Last Admin: 02/14/19 08:20 Dose: 150 mls/hr Piperacillin Sod/Tazobactam (Sod 4.5 gm/ Dextrose) 100 mls @ 200 mls/hr IVPB Q8H-IV [facility] Last Admin: 02/14/19 09:05 Dose: 200 mls/hr Insulin Aspart (Novolog Vial Sliding Scale -) 1 vial SQ [facility]; Protocol Last Admin: 02/14/19 06:35 Dose: 4 units Morphine Sulfate (Morphine Sulfate) 2 mg IVPUSH Q6H PRN PRN Reason: PAIN LEVEL 7-10 Last Admin: 02/14/19 07:48 Dose: 2 mg Mupirocin (Bactroban Ointment (For Decolonization) -) 1 applic NS BID [facility] Stop: 02/17/19 21:59 Last Admin: 02/14/19 09:03 Dose: 1 applic Ondansetron HCl (Zofran Injection) 4 mg IVPUSH Q6H PRN PRN Reason: NAUSEA AND/OR VOMITING ASSESSMENT AND PLAN: Cecal Volvulus s/p ex-lap/Ileocecectomy/RAIN r/o Peritonitis/Sepsis DM h/o Fibroids h/o Appendectomy - IVF - monitor urine output, creatinine - continue antibiotics - f/u cultures - pain control - incentive spirometry - OOB to chair - await return of bowel function - DVT prophylaxis - disposition per surgery
--- NOTE | 2019-02-14 14:41 | PN ---
Progress Note, Physician History of Present Illness: Pt s/p ileocecectomy with lysis of adhesions for cecal volvulus. In ICU for frequent monitoring, early septic response with third-spacing fluids postop, in part likely related to correction of volvulus before resection and systemic distribution of inflammatory mediators from compromised cecum. She has good UOP in [place], increasing BPs in normal range and intermittent mild tachycardia. LADLE REPAIRMAN for pain has been stopped; she is on standing IV tylenol and feeling minimal pain. Using IS with good effort. Has been OOB to chair. NGT in place, with 300ml in canister, green/brownish. She is seen and examined in bed, resting comfortably, falls asleep easily. She c /o some discomfort from the NGT, but overall is feeling ok. Has not passed gas yet, would like to. Abdominal dressing clean and dry. - Current Medication List Current Medications: Active Medications Acetaminophen (Ofirmev Injection -) 1,000 mg IVPB Q6H-IV [facility] Last Admin: 02/14/19 08:21 Dose: 1,000 mg Bacitracin (Bacitracin -) 1 applic TP BID [facility] Last Admin: 02/14/19 09:03 Dose: 1 applic Benzocaine/Menthol (Cepacol Lozenge -) 1 each MM PRN PRN PRN Reason: SORE THROAT Last Admin: 02/13/19 22:35 Dose: 1 each Chlorhexidine Gluconate (Hibiclens For Decolonization -) 1 applic TP HS [facility] Last Admin: 02/13/19 21:36 Dose: 1 applic Heparin Sodium (Porcine) (Heparin -) 5,000 unit SQ TID [facility] Last Admin: 02/14/19 13:15 Dose: 5,000 unit Dextrose/Lactated Ringer's (D5-Lr -) 1,000 mls @ 150 mls/hr IV ASDIR [facility] Last Admin: 02/14/19 08:20 Dose: 150 mls/hr Piperacillin Sod/Tazobactam (Sod 4.5 gm/ Dextrose) 100 mls @ 200 mls/hr IVPB Q8H-IV [facility] Last Admin: 02/14/19 09:05 Dose: 200 mls/hr Insulin Aspart (Novolog Vial Sliding Scale -) 1 vial SQ ACHS [facility]; Protocol Last Admin: 02/14/19 12:00 Dose: 2 units Morphine Sulfate (Morphine Sulfate) 2 mg IVPUSH Q6H PRN PRN Reason: PAIN LEVEL 7-10 Last Admin: 02/14/19 07:48 Dose: 2 mg Mupirocin (Bactroban Ointment (For Decolonization) -) 1 applic NS BID [facility] Stop: 02/17/19 21:59 Last Admin: 02/14/19 09:03 Dose: 1 applic Ondansetron HCl (Zofran Injection) 4 mg IVPUSH Q6H PRN PRN Reason: NAUSEA AND/OR VOMITING - Objective Vital Signs: Vital Signs Temperature 98.5 F 02/14/19 07:48 Pulse Rate 87 02/14/19 11:00 Respiratory Rate 21 H 02/14/19 11:00 Blood Pressure 108/56 L 02/14/19 11:00 O2 Sat by Pulse Oximetry (%) 100 02/14/19 07:48 Vital Signs Period Temp Pulse Resp BP Sys/Rush Pulse Ox Last 24 Hr 97.8 F-98.7 F 66-102 9-22 88-119/51-93 99-100 Constitutional: Yes: Well Nourished, No Distress, Calm Eyes: Yes: Conjunctiva Clear, EOM Intact HENT: Yes: Atraumatic, Normocephalic Gastrointestinal: Yes: Soft, Distention (mild), Hypoactive Bowel Sounds (absent) , Tenderness (minimal RLQ and incisional) Genitourinary: Yes: [place] Present (clear urine). No: Hematuria Integumentary: Yes: Incision (midline dressed). No: Jaundice, Rash Wound/Incision: Yes: Well Approximated, Antonio Intact, Dressing Dry and Intact , Dressing Removed (wound packing changed, redressed with small gauze and tape over both), Draining (small serous/serosang on gauzes, dried), Unapproximated ( two site left open - clean with no necrotic tissue or purulence; gauze removed, repacked with 1/2" plain ribbon gauze to bases/deep, no pain with change). No: Bleeding Neurological: Yes: Alert (but sleepy), Oriented Labs: CBC, BMP 02/14/19 09:47 02/14/19 09:47 CMP Sodium 144 mmol/L (136-145) 02/14/19 09:47 Potassium 3.8 mmol/L (3.5-5.1) 02/14/19 09:47 Chloride 106 mmol/L (98-107) 02/14/19 09:47 Carbon Dioxide 27 mmol/L (21-32) 02/14/19 09:47 Anion Gap 12 MMOL/L (8-16) 02/14/19 09:47 BUN 10.1 mg/dL (7-18) 02/14/19 09:47 Creatinine 0.6 mg/dL (0.55-1.3) 02/14/19 09:47 Est GFR (CKD-EPI)AfAm 114.82 02/14/19 09:47 Est GFR (CKD-EPI)NonAf 99.07 02/14/19 09:47 POC Glucometer 157 UNITS (80-120) 02/14/19 11:03 Random Glucose 173 mg/dL (74-106) H 02/14/19 09:47 Lactic Acid 1.1 mmol/L (0.4-2.0) 02/11/19 18:59 Calcium 8.2 mg/dL (8.5-10.1) L 02/14/19 09:47 Phosphorus 3.1 mg/dL (2.5-4.9) 02/13/19 05:15 Magnesium 2.1 mg/dL (1.8-2.4) 02/14/19 09:47 Total Bilirubin 0.5 mg/dL (0.2-1) 02/14/19 09:47 AST 13 U/L (15-37) L 02/14/19 09:47 ALT 11 U/L (13-61) L 02/14/19 09:47 Alkaline Phosphatase 57 U/L (45-117) 02/14/19 09:47 Troponin I < 0.03 ng/ml (0.00-0.05) 02/11/19 19:00 Total Protein 4.9 g/dl (6.4-8.2) L 02/14/19 09:47 Albumin 2.0 g/dl (3.4-5.0) L 02/14/19 09:47 Lipase 139 U/L (73-393) 02/11/19 19:00 Microbiology 02/12/19 10:00 Gram Stain - Final Peritoneal Fluid Body Fluid Culture - Final NO GROWTH OF AEROBIC ORGANISMS AFTER 48 HOURS INCUBATION Anaerobic Culture - Final NO ANAEROBES WERE ISOLATED 02/11/19 19:30 Blood Culture - Preliminary Blood - Peripheral Venous NO GROWTH OBTAINED AFTER 48 HOURS, INCUBATION TO CONTINUE FOR 3 DAYS. 02/11/19 19:00 Blood Culture - Preliminary Blood - Peripheral Venous NO GROWTH OBTAINED AFTER 48 HOURS, INCUBATION TO CONTINUE FOR 3 DAYS. Problem List - Problems (1) Cecal volvulus Assessment/Plan: POD2 s/p ileocecectomy with lysis of adhesions for cecal volvulus doing well continue NPO/IVF/NGT NG will stay until bowel function resumes postop can d/c [place], but continue STRICT measurement of I/Os (hat in toilet or commode ) continue IV antibiotics, ID on board LADLE REPAIRMAN stopped, continue IV tylenol with prn morphine GI/DVT prophylaxis ok for cepacol lozenges for NG discomfort bacitracin to skin tear on abdominal wall - left with bandaid over, it is healing midline wound dressings to be changed with 1/2" plain ribbon packing daily, cover with small gauze and tape just to hold pt will need VNS on d/c home for wound care, family will learn dressing changes as well OOB as able - ambulate as able IS/pulm toilet await resumption of bowel function ok for transfer to floor with STRICT I/O's and VS q4H continue fingersticks with SSI insulin prn This patient is critically ill. Time spent reviewing chart, examining patient, talking with providers and/or family and documentation is [address] Castro of ICU team. Code(s): K56.2 - VOLVULUS (2) Other complete intestinal obstruction Assessment/Plan: resolved postop - awaiting resumption of bowel function Code(s): K56.691 - OTHER COMPLETE INTESTINAL OBSTRUCTION (3) Generalized abdominal pain Assessment/Plan: improved/resolved - now with postop pain, mild Code(s): R10.84 - GENERALIZED ABDOMINAL PAIN (4) Diabetes mellitus, insulin dependent (IDDM), controlled Assessment/Plan: FS with sliding scale insulin NPO until bowel function resumes defer to medicine for glucose management Code(s): E11.9 - TYPE 2 DIABETES MELLITUS WITHOUT COMPLICATIONS; Z79.4 - MENTAL HEALTH ORDERLY (CURRENT) USE OF INSULIN
[2019-02-14] MEDS ORDERED: DEXTROSE 5%-LACTATED RINGERS 1,000 ML IV SCH (14:48)
[2019-02-14] MEDS: CHLORHEXIDINE GLUCONATE 4% CLEANSER FOR DECOLONIZATION TP SCH (21:35)
[2019-02-14] MEDS ORDERED: ACETAMINOPHEN 1000 MG/100 ML VIAL (NON FORMULARY) IVPB PRN (22:00)
[2019-02-15] MEDS ORDERED: PT OWN MED DRAWER 7, Y5N ONE ×2 (02:38→16:31)
[2019-02-15] MEDS: PIPERACILLIN/TAZOB 4.5 GM 4.5 GM in DEXTROSE 5%-WATER 100 ML IVPB SCH ×3 (03:01→17:22)
[2019-02-15] MEDS: MORPHINE SULFATE 2 MG/ML VIAL IVPUSH PRN (03:32)
[2019-02-15] MEDS: HEPARIN NA (PORCINE) 5,000 UNITS/ML 1ML VIAL SQ SCH ×3 (06:16→22:36)
[2019-02-15] MEDS: INSULIN SLIDING SCALE (NOVOLOG) 1 VIAL SQ SCH ×4 (06:17→22:35)
[2019-02-15 06:50] LABS: ALBUMIN 2.1 g/dl (3.4-5.0); BILIRUBIN,TOTAL 0.6 mg/dL (0.2-1); BLOOD UREA NITROGEN 18.2 mg/dL (7-18); CALCIUM 8.7 mg/dL (8.5-10.1); CREATININE 0.8 mg/dL (0.55-1.3); PHOSPHOROUS 3.8 mg/dL (2.5-4.9); POTASSIUM 4.3 mmol/L (3.5-5.1); TOT PROT 5.4 g/dl (6.4-8.2)
[2019-02-15 07:29] LABS: BASO % 0.9 % (0-2.0); EOS % 0.5 % (0-4.5); HEMATOCRIT 37.7 % (32.4-45.2); HEMOGLOBIN 11.9 GM/dL (10.7-15.3); LYMPH % 6.3 % (8-40); MCH 33.4 pg (25.7-33.7); MCHC 31.5 g/dl (32.0-36.0); MEAN PLT VOLUME 7.8 fl (7.5-11.1); MONO % 6.6 % (3.8-10.2); NEUT % 85.7 % (42.8-82.8); PLATELET COUNT 365 K/MM3 (134-434); RBC 3.55 M/mm3 (3.60-5.2); RDW 13.4 % (11.6-15.6); WHITE BLOOD COUNT 11.8 K/mm3 (4.0-10.0)
[2019-02-15] MEDS ORDERED: PIPERACILLIN/TAZOBACTAM 4.5 GM VIAL IVPB ONE ×2 (08:21→16:54)
[2019-02-15] MEDS ORDERED: DEXTROSE 5%-WATER 100 ML IVPB ONE ×2 (08:21→16:55)
--- NOTE | 2019-02-15 08:45 | PN ---
Physical Exam: SUBJECTIVE: Patient seen and examined at bedside. No acute events o/n. Denies f/ c, chest pain, sob, abdominal pain, n/v. No flatus yet. OBJECTIVE: Vital Signs Period Temp Pulse Resp BP Sys/Rush Pulse Ox Last 24 Hr 97.4 F-98.5 F 87-115 14-21 99-123/56-70 100 GEN: Well appearing, NAD, comfortable. AAOx3 HEENT: NC/AT, EOMI, No facial asymmetry. Normal voice. Supple neck w/ FROM. NGT draining well. CV: S1/S2, RRR, no m/r/g LUNG: CTAB, no wheezes, crackles, rales, rhonchi. GI: soft, ndnt, hypoactive BS, no guarding, no rebound. well healing midline scar, c/d/i. EXTREMITIES: No LE edema. No deformities. SKIN: warm, dry, normal turgor PSYCH: normal mood and affect Laboratory Results - last 24 hr 02/14/19 02/14/19 02/14/19 09:47 09:47 11:03 WBC 9.9 RBC 3.06 L Hgb 10.6 L Hct 31.6 L MCV 103.2 H MCH 34.6 H MCHC 33.5 RDW 13.0 Plt Count 277 MPV 6.9 L Absolute Neuts (auto) 8.1 H Neutrophils % 82.5 Lymphocytes % 6.5 L D Monocytes % 7.7 Eosinophils % 2.7 D Basophils % 0.6 Nucleated RBC % 0 Sodium 144 Potassium 3.8 Chloride 106 Carbon Dioxide 27 Anion Gap 12 BUN 10.1 Creatinine 0.6 Est GFR (CKD-EPI)AfAm 114.82 Est GFR (CKD-EPI)NonAf 99.07 POC Glucometer 157 Random Glucose 173 H Calcium 8.2 L Phosphorus Magnesium 2.1 Total Bilirubin 0.5 AST 13 L ALT 11 L Alkaline Phosphatase 57 Total Protein 4.9 L Albumin 2.0 L 02/14/19 02/14/19 02/15/19 16:22 21:20 03:20 WBC RBC Hgb Hct MCV MCH MCHC RDW Plt Count MPV Absolute Neuts (auto) Neutrophils % Lymphocytes % Monocytes % Eosinophils % Basophils % Nucleated RBC % Sodium Potassium Chloride Carbon Dioxide Anion Gap BUN Creatinine Est GFR (CKD-EPI)AfAm Est GFR (CKD-EPI)NonAf POC Glucometer 137 154 136 Random Glucose Calcium Phosphorus Magnesium Total Bilirubin AST ALT Alkaline Phosphatase Total Protein Albumin 02/15/19 02/15/19 02/15/19 05:50 05:50 05:51 WBC 11.8 H RBC 3.55 L Hgb 11.9 Hct 37.7 D MCV 106.0 H MCH 33.4 MCHC 31.5 L RDW 13.4 Plt Count 365 D MPV 7.8 D Absolute Neuts (auto) 10.1 H Neutrophils % 85.7 H Lymphocytes % 6.3 L Monocytes % 6.6 Eosinophils % 0.5 D Basophils % 0.9 Nucleated RBC % 0 Sodium 145 Potassium 4.3 Chloride 108 H Carbon Dioxide 11 L Anion Gap 25 H BUN 18.2 H Creatinine 0.8 Est GFR (CKD-EPI)AfAm 92.87 Est GFR (CKD-EPI)NonAf 80.13 POC Glucometer 193 Random Glucose 218 H Calcium 8.7 Phosphorus 3.8 Magnesium 2.0 Total Bilirubin 0.6 AST 13 L ALT 12 L Alkaline Phosphatase 72 Total Protein 5.4 L Albumin 2.1 L Active Medications Generic Name Dose Route Start Last Admin Trade Name Freq PRN Reason Stop Dose Admin Acetaminophen 1,000 mg 02/14/19 22:00 02/15/19 03:33 Ofirmev Injection - IVPB 1,000 mg Q6H PRN Administration FEVER Bacitracin 1 applic 02/13/19 22:00 02/14/19 21:35 Bacitracin - TP 1 applic BID [facility] Administration Benzocaine/Menthol 1 each 02/13/19 18:10 02/13/19 22:35 Cepacol Lozenge - MM 1 each PRN PRN Administration SORE THROAT Chlorhexidine Gluconate 1 applic 02/12/19 22:00 02/14/19 21:35 Hibiclens For Decolonization - TP 1 applic HS [facility] Administration Heparin Sodium (Porcine) 5,000 unit 02/13/19 14:00 02/15/19 06:16 Heparin - SQ 5,000 unit TID [facility] Administration Piperacillin Sod/Tazobactam 100 mls @ 200 mls/hr 02/13/19 00:00 02/15/19 03: 01 Sod 4.5 gm/ Dextrose IVPB 200 mls/hr Q8H-IV [facility] Administration Dextrose/Lactated Ringer's 1,000 mls @ 100 mls/hr 02/14/19 14:48 02/14/19 16: 16 D5-Lr - IV 100 mls/hr ASDIR [facility] Administration Insulin Aspart 1 vial 02/12/19 22:00 02/15/19 06:17 Novolog Vial Sliding Scale - SQ 2 units ACHS [facility] Administration Protocol Morphine Sulfate 2 mg 02/13/19 23:30 02/15/19 03:32 Morphine Sulfate IVPUSH 2 mg Q6H PRN Administration PAIN LEVEL 7-10 Mupirocin 1 applic 02/12/19 22:00 02/14/19 21:36 Bactroban Ointment (For Decolonization) - NS 02/17/19 21:59 1 applic BID [facility] Administration Ondansetron HCl 4 mg 02/12/19 21:58 Zofran Injection IVPUSH Q6H PRN NAUSEA AND/OR VOMITING ASSESSMENT/PLAN: 58F PMH of IDDM, fibroids (s/p myomectomy), liposuction, appendectomy presented to [facility] with fevers, chills, abdominal pain, n/v, constipation, found to have cecal volvulus w/ obstruction on CT. s/p ileocecectomy with lysis of adhesions. ICU admission for close BP monitoring post op. For transfer to floors. Neuro -Pt is neurologically intact, Awake, alert, oriented x3 GI - s/p ileocecectomy with lysis of adhesions. -possible localized spillage during surgery -c/w Zosyn TID day 4 -tylenol IV PRN -morphine PRN -Zofran PRN -Cx neg -NGT to low wall suction Pulm -incentive spirometry Cardio - hypotension likely 2/2 fluid loss 2/2 surgery vs sepsis -continue to monitor BP. pt reports her BP usually is low. -c/w aggressive fluid repletion w/ LR @ 150 mls/ hr -MAPs stable ENDO - IDDM - BGM and ISS PPx: SCDs , Hep SQ -d/c muir F/E/N -LR @ 150 mls/hr -monitor lytes -NPO until flatus Code Status: FULL CODE Dispo: m/s Visit type - Emergency Visit Emergency Visit: No - New Patient This patient is new to me today: No - Critical Care Critical Care patient: Yes Total Critical Care Time (in minutes): 0
[2019-02-15] MEDS: BACITRACIN 15 GM TUBE TOPICAL OINTMENT TP SCH ×2 (09:14→23:29)
[2019-02-15] MEDS: MUPIROCIN 2% TOPICAL OINTMENT FOR DECOLONIZATION NS SCH (09:14)
--- NOTE | 2019-02-15 11:11 | PN ---
Progress Note, Physician History of Present Illness: stable still no gi function - Current Medication List Current Medications: Active Medications Acetaminophen (Ofirmev Injection -) 1,000 mg IVPB Q6H PRN PRN Reason: FEVER Last Admin: 02/15/19 03:33 Dose: 1,000 mg Bacitracin (Bacitracin -) 1 applic TP BID [facility] Last Admin: 02/15/19 09:14 Dose: 1 applic Benzocaine/Menthol (Cepacol Lozenge -) 1 each MM PRN PRN PRN Reason: SORE THROAT Last Admin: 02/13/19 22:35 Dose: 1 each Chlorhexidine Gluconate (Hibiclens For Decolonization -) 1 applic TP HS [facility] Last Admin: 02/14/19 21:35 Dose: 1 applic Heparin Sodium (Porcine) (Heparin -) 5,000 unit SQ TID [facility] Last Admin: 02/15/19 06:16 Dose: 5,000 unit Piperacillin Sod/Tazobactam (Sod 4.5 gm/ Dextrose) 100 mls @ 200 mls/hr IVPB Q8H-IV [facility] Last Admin: 02/15/19 09:02 Dose: 200 mls/hr Dextrose/Lactated Ringer's (D5-Lr -) 1,000 mls @ 100 mls/hr IV ASDIR [facility] Last Admin: 02/14/19 16:16 Dose: 100 mls/hr Insulin Aspart (Novolog Vial Sliding Scale -) 1 vial SQ ACHS [facility]; Protocol Last Admin: 02/15/19 11:03 Dose: 2 units Morphine Sulfate (Morphine Sulfate) 2 mg IVPUSH Q6H PRN PRN Reason: PAIN LEVEL 7-10 Last Admin: 02/15/19 03:32 Dose: 2 mg Mupirocin (Bactroban Ointment (For Decolonization) -) 1 applic NS BID [facility] Stop: 02/17/19 21:59 Last Admin: 02/15/19 09:14 Dose: 1 applic Ondansetron HCl (Zofran Injection) 4 mg IVPUSH Q6H PRN PRN Reason: NAUSEA AND/OR VOMITING - Objective Vital Signs: Vital Signs Temperature 97.3 F L 02/15/19 10:04 Pulse Rate 92 H 02/15/19 10:04 Respiratory Rate 15 02/15/19 10:04 Blood Pressure 98/61 02/15/19 10:04 O2 Sat by Pulse Oximetry (%) 100 02/15/19 08:00 Constitutional: Yes: No Distress, Calm Cardiovascular: Yes: S1, S2 Respiratory: Yes: Regular, CTA Bilaterally Gastrointestinal: Yes: Soft, Other (absent gi function,ng tube in place) Musculoskeletal: Yes: WNL Extremities: Yes: WNL Neurological: Yes: Alert, Oriented Psychiatric: Yes: Alert, Oriented Labs: CBC, BMP 02/15/19 05:50 02/15/19 05:50 INR, PTT INR 0.94 (0.83-1.09) 02/12/19 00:00 Assessment/Plan Problem List - Problems (1) Cecal volvulus Code(s): K56.2 - VOLVULUS (2) Other complete intestinal obstruction Code(s): K56.691 - OTHER COMPLETE INTESTINAL OBSTRUCTION (3) Generalized abdominal pain Code(s): R10.84 - GENERALIZED ABDOMINAL PAIN (4) Nausea & vomiting Code(s): R11.2 - NAUSEA WITH VOMITING, UNSPECIFIED Qualifiers: Vomiting type: unspecified Vomiting Intractability: non-intractable Qualified Code(s): R11.2 - Nausea with vomiting, unspecified (5) Diabetes mellitus, insulin dependent (IDDM), controlled Code(s): E11.9 - TYPE 2 DIABETES MELLITUS WITHOUT COMPLICATIONS; Z79.4 - TENTERING MACHINE OFF BEARER (CURRENT) USE OF 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 female with PMH of IDDM, fibroids s/p myomectomy, liposuction, and appendectomy presented with c/o abd pain/n/v that began 3 days ago Cecal volvulus/SBO s/p ileocecectomy and RAIN POD#0 IDDM Hx Fibroids s/p myomectomy -- operative note reviewed -- continue Zosyn will deescalte will d/w the surgical team
[2019-02-15 11:31] LABS: ANISOCYTOSIS 0; MACROCYTOSIS 1+; PLATELET ESTIMATE NORMAL
--- NOTE | 2019-02-15 11:41 | PN ---
Teaching Attending Note Name of Resident: Martin Savage ATTENDING PHYSICIAN STATEMENT I saw and evaluated the patient. I reviewed the resident's note and discussed the case with the resident. I agree with the resident's findings and plan as documented. SUBJECTIVE: Pt seen and examined in the ICU. Pain controlled. No flatus/BM. No fevers, feels cold occasionally. No nausea. OBJECTIVE: Vital Signs Period Temp Pulse Resp BP Sys/Rush Pulse Ox Last 24 Hr 97.3 F-98.5 F 90-115 14-20 98-123/56-70 100-100 Intake & Output 02/12/19 02/13/19 02/14/19 02/15/19 23:59 23:59 23:59 23:59 Intake Total 4800 4619 3505 1500 Output Total 1270 5125 4300 3100 Balance 6695 -938 -529 -1568 Weight 69.485 kg 72.2 kg 70.76 kg 68 kg Gen: NAD at rest Heart: RRR Lung: decreased breath sounds at the bases Abd: soft, nontender, dressings intact Ext: no edema CBC, BMP 02/15/19 05:50 02/15/19 05:50 Active Medications Acetaminophen (Ofirmev Injection -) 1,000 mg IVPB Q6H PRN PRN Reason: FEVER Last Admin: 02/15/19 03:33 Dose: 1,000 mg Bacitracin (Bacitracin -) 1 applic TP BID [facility] Last Admin: 02/15/19 09:14 Dose: 1 applic Benzocaine/Menthol (Cepacol Lozenge -) 1 each MM PRN PRN PRN Reason: SORE THROAT Last Admin: 02/13/19 22:35 Dose: 1 each Chlorhexidine Gluconate (Hibiclens For Decolonization -) 1 applic TP HS [facility] Last Admin: 02/14/19 21:35 Dose: 1 applic Heparin Sodium (Porcine) (Heparin -) 5,000 unit SQ TID [facility] Last Admin: 02/15/19 06:16 Dose: 5,000 unit Piperacillin Sod/Tazobactam (Sod 4.5 gm/ Dextrose) 100 mls @ 200 mls/hr IVPB Q8H-IV [facility] Last Admin: 02/15/19 09:02 Dose: 200 mls/hr Dextrose/Lactated Ringer's (D5-Lr -) 1,000 mls @ 100 mls/hr IV ASDIR [facility] Last Admin: 02/14/19 16:16 Dose: 100 mls/hr Insulin Aspart (Novolog Vial Sliding Scale -) 1 vial SQ ACHS [facility]; Protocol Last Admin: 02/15/19 11:03 Dose: 2 units Morphine Sulfate (Morphine Sulfate) 2 mg IVPUSH Q6H PRN PRN Reason: PAIN LEVEL 7-10 Last Admin: 02/15/19 03:32 Dose: 2 mg Mupirocin (Bactroban Ointment (For Decolonization) -) 1 applic NS BID [facility] Stop: 02/17/19 21:59 Last Admin: 02/15/19 09:14 Dose: 1 applic Ondansetron HCl (Zofran Injection) 4 mg IVPUSH Q6H PRN PRN Reason: NAUSEA AND/OR VOMITING ASSESSMENT AND PLAN: Cecal Volvulus s/p ex-lap/Ileocecectomy/RAIN r/o Peritonitis/Sepsis DM h/o Fibroids h/o Appendectomy - IVF - monitor urine output, creatinine - monitor lytes - continue antibiotics - f/u cultures - pain control - incentive spirometry - OOB to chair - await return of bowel function - DVT prophylaxis - can monitor on floor
[2019-02-15] MEDS ORDERED: DEXTROSE 5%-LACTATED RINGERS 1,000 ML IV SCH (13:26)
[2019-02-15] MEDS ORDERED: ACETAMINOPHEN 1000 MG/100 ML VIAL (NON FORMULARY) IVPB PRN (13:26)
[2019-02-15] MEDS ORDERED: ONDANSETRON 4 MG/2 ML VIAL IVPUSH PRN (13:26)
[2019-02-15] MEDS ORDERED: MORPHINE SULFATE 2 MG/ML VIAL IVPUSH PRN (13:26)
--- NOTE | 2019-02-15 15:51 | PN ---
Progress Note, Physician History of Present Illness: Pt s/p ileocecectomy with lysis of adhesions for cecal volvulus. Was in ICU for frequent monitoring, early septic response with third-spacing fluids postop, in part likely related to correction of volvulus before resection and systemic distribution of inflammatory mediators from compromised cecum. She has good UOP ; had Wel[place] d/c'd yesterday but had copious volume and frequency, and it was reinserted. There is nearly clear urine in the bag, >200ml, recently emptied as well. BPs in normal range with mild tachycardia 90s. PRN IV tylenol for pain, admits to some. Using IS with good effort. Has been OOB and ambulated. NGT in place, with 700ml yesterday, 200 so far today. She is seen and examined sitting in wheelchair, not yet in bed after transfer to floor today. She c/o discomfort from the NGT, and is feeling weak overall. Has not passed gas yet. Abdominal dressings in place. Asking for ice chips. is present. - Current Medication List Current Medications: Active Medications Acetaminophen (Ofirmev Injection -) 1,000 mg IVPB Q6H PRN PRN Reason: PAIN OR FEVER Bacitracin (Bacitracin -) 1 applic TP BID [facility] Benzocaine/Menthol (Cepacol Lozenge -) 1 each MM PRN PRN PRN Reason: SORE THROAT Heparin Sodium (Porcine) (Heparin -) 5,000 unit SQ TID [facility] Last Admin: 02/15/19 15:18 Dose: 5,000 unit Piperacillin Sod/Tazobactam (Sod 4.5 gm/ Dextrose) 100 mls @ 200 mls/hr IVPB Q8H-IV [facility] Insulin Aspart (Novolog Vial Sliding Scale -) 1 vial SQ ACHS [facility]; Protocol Morphine Sulfate (Morphine Sulfate) 2 mg IVPUSH Q6H PRN PRN Reason: PAIN LEVEL 7-10 Ondansetron HCl (Zofran Injection) 4 mg IVPUSH Q6H PRN PRN Reason: NAUSEA AND/OR VOMITING - Objective Vital Signs: Vital Signs Temperature 97.1 F L 02/15/19 12:00 Pulse Rate 94 H 02/15/19 12:00 Respiratory Rate 15 02/15/19 12:00 Blood Pressure 119/64 02/15/19 12:00 O2 Sat by Pulse Oximetry (%) 100 02/15/19 08:00 Intake & Output 02/14/19 02/15/19 02/15/19 23:59 07:59 15:59 Intake Total 100 1400 750 Output Total 1400 3100 1600 Balance -1300 -1700 -850 Weight 149 lb 14.629 oz Intake: IV 1200 650 D5-Lr - 1,000 ml @ 100 1200 650 mls/hr IV ASDIR [facility] Rx#: [id number] IVPB 200 100 Oral 100 0 Output: Gastric Drainage 700 200 Urine 1400 2400 1400 [place] 800 2400 1400 Void 600 Other: Voiding Method Toilet Indwelling Catheter # Unmeasured Voids [place] 1 Bowel Movement No No Weight Measurement Method Built in [facility] Constitutional: Yes: Well Nourished, No Distress, Calm Eyes: Yes: Conjunctiva Clear, EOM Intact HENT: Yes: Atraumatic, Normocephalic, Other (NGT in place) Gastrointestinal: Yes: Soft, Hypoactive Bowel Sounds (absent). No: Distention Genitourinary: Yes: [place] Present, Polyuria. No: Hematuria Extremities: No: Cool, Cyanosis Integumentary: Yes: Incision (midline w/raza and dressings over wounds). No : Jaundice, Rash Wound/Incision: Yes: Clean/Dry, Well Approximated (most of midline), Simms Intact, Dressing Dry and Intact, Dressing Removed, Draining (minimal serous), Unapproximated (between raza, in two sites only - clean, packing changed (1/2 " plain ribbon), covered with gauze and tape) Neurological: Yes: Alert, Oriented Labs: CBC, BMP 02/15/19 05:50 02/15/19 05:50 CMP Sodium 145 mmol/L (136-145) 02/15/19 05:50 Potassium 4.3 mmol/L (3.5-5.1) 02/15/19 05:50 Chloride 108 mmol/L (98-107) H 02/15/19 05:50 Carbon Dioxide 11 mmol/L (21-32) L 02/15/19 05:50 Anion Gap 25 MMOL/L (8-16) H 02/15/19 05:50 BUN 18.2 mg/dL (7-18) H 02/15/19 05:50 Creatinine 0.8 mg/dL (0.55-1.3) 02/15/19 05:50 Est GFR (CKD-EPI)AfAm 92.87 02/15/19 05:50 Est GFR (CKD-EPI)NonAf 80.13 02/15/19 05:50 POC Glucometer 177 UNITS (80-120) 02/15/19 11:01 Random Glucose 218 mg/dL (74-106) H 02/15/19 05:50 Lactic Acid 1.1 mmol/L (0.4-2.0) 02/11/19 18:59 Calcium 8.7 mg/dL (8.5-10.1) 02/15/19 05:50 Phosphorus 3.8 mg/dL (2.5-4.9) 02/15/19 05:50 Magnesium 2.0 mg/dL (1.8-2.4) 02/15/19 05:50 Total Bilirubin 0.6 mg/dL (0.2-1) 02/15/19 05:50 AST 13 U/L (15-37) L 02/15/19 05:50 ALT 12 U/L (13-61) L 02/15/19 05:50 Alkaline Phosphatase 72 U/L (45-117) 02/15/19 05:50 Troponin I < 0.03 ng/ml (0.00-0.05) 02/11/19 19:00 Total Protein 5.4 g/dl (6.4-8.2) L 02/15/19 05:50 Albumin 2.1 g/dl (3.4-5.0) L 02/15/19 05:50 Lipase 139 U/L (73-393) 02/11/19 19:00 Hb up a bit, wbc up a bit BUN/Cr up a bit Na/Cl up a bit glucose also in higher ranges Problem List - Problems (1) Cecal volvulus Assessment/Plan: POD3 s/p ileocecectomy with lysis of adhesions for cecal volvulus doing well overall continue NPO/IVF/NGT but may chew gum and use lozenges still with no sig bowel sounds NG will stay until bowel function resumes postop [place] for accurate I/Os continue IV antibiotics, ID on board IV tylenol with prn morphine GI/DVT prophylaxis midline wound dressings to be changed with 2" plain ribbon packing daily, cover with small gauze and tape just to hold pt will need VNS on d/c home for wound care, family will learn dressing changes as well OOB as able - ambulate as able IS/pulm toilet await resumption of bowel function will change fluids to LR without D5 monitor fluid status closely repeat BMP pending this afternoon continue fingersticks with SSI insulin prn Code(s): K56.2 - VOLVULUS (2) Other complete intestinal obstruction Code(s): K56.691 - OTHER COMPLETE INTESTINAL OBSTRUCTION (3) Generalized abdominal pain Code(s): R10.84 - GENERALIZED ABDOMINAL PAIN (4) Diabetes mellitus, insulin dependent (IDDM), controlled Assessment/Plan: FS with sliding scale insulin NPO until bowel function resumes defer to medicine for glucose management Code(s): E11.9 - TYPE 2 DIABETES MELLITUS WITHOUT COMPLICATIONS; Z79.4 - WIND TURBINE CONTROLS ENGINEER (CURRENT) USE OF INSULIN
[2019-02-15] MEDS ORDERED: INSULIN (NOVOLOG) ASPART 100 UNITS/ML 10ML VIAL ONE ×3 (16:55→21:06)
[2019-02-15] MEDS: LACTATED RINGERS SOLUTION 1,000 ML/1,000 ML INFUS.BAG IV SCH (16:58)
[2019-02-15] MEDS: ACETAMINOPHEN 1000 MG/100 ML VIAL (NON FORMULARY) IVPB PRN (21:25)
--- NOTE | 2019-02-15 21:30 | PN ---
Progress Note, Physician Chief Complaint: offers no complaints, denies pain History of Present Illness: Patient is a 58 year old female who was admitted overnight for 9cm cecal volvulus with obstruction. She was taken to the OR on 02/12 and is now s/p ileocecectomy with lysis of adhesions. She was upgraded to the ICU for hypotension. - Current Medication List Current Medications: Active Medications Acetaminophen (Ofirmev Injection -) 1,000 mg IVPB Q6H PRN PRN Reason: PAIN OR FEVER Bacitracin (Bacitracin -) 1 applic TP BID [facility] Benzocaine/Menthol (Cepacol Lozenge -) 1 each MM PRN PRN PRN Reason: SORE THROAT Heparin Sodium (Porcine) (Heparin -) 5,000 unit SQ TID [facility] Last Admin: 02/15/19 15:18 Dose: 5,000 unit Piperacillin Sod/Tazobactam (Sod 4.5 gm/ Dextrose) 100 mls @ 200 mls/hr IVPB Q8H-IV [facility] Last Admin: 02/15/19 17:22 Dose: 200 mls/hr Lactated Ringer's (Lactated Ringers Solution) 1,000 ml in 1,000 mls @ 125 mls/ hr IV ASDIR [facility] Last Admin: 02/15/19 16:58 Dose: 125 mls/hr Insulin Aspart (Novolog Vial Sliding Scale -) 1 vial SQ ACHS [facility]; Protocol Last Admin: 02/15/19 16:56 Dose: 2 units Morphine Sulfate (Morphine Sulfate) 2 mg IVPUSH Q6H PRN PRN Reason: PAIN LEVEL 7-10 Ondansetron HCl (Zofran Injection) 4 mg IVPUSH Q6H PRN PRN Reason: NAUSEA AND/OR VOMITING - Objective Vital Signs: Vital Signs Temperature 98.2 F 02/15/19 18:00 Pulse Rate 93 H 02/15/19 18:00 Respiratory Rate 20 02/15/19 18:00 Blood Pressure 116/58 L 02/15/19 18:00 O2 Sat by Pulse Oximetry (%) 95 02/15/19 15:00 Constitutional: Yes: No Distress, Calm Eyes: Yes: WNL HENT: Yes: WNL Neck: Yes: Supple Respiratory: Yes: Regular Gastrointestinal: Yes: Soft ...Rectal Exam: Yes: Deferred Genitourinary: Yes: Other (ngt) Musculoskeletal: Yes: WNL Extremities: Yes: WNL Peripheral Pulses WNL: No Integumentary: Yes: Skin Tear Neurological: Yes: WNL, Alert, Oriented Psychiatric: Yes: Alert, Oriented Labs: CBC, BMP 02/15/19 05:50 02/15/19 05:50 INR, PTT INR 0.94 (0.83-1.09) 02/12/19 00:00 Problem List - Problems (1) Abdominal pain Assessment/Plan: cecal volvulus s/; ileocecectomy with lysis of adhesions. surgery following continue pain management NGT to low intermittent suction Code(s): R10.9 - UNSPECIFIED ABDOMINAL PAIN (2) Bowel obstruction Assessment/Plan: Appreciate Surgical care- Dr You following NPO NGT placed to low wall suction Zosyn Continue IVF Pain Management Zofran prn trend WBC and temp curve follow up peritoneal fluid culture. blood culture/urine culture negative. Code(s): K56.609 - UNSP INTESTNL OBST, UNSP TO PARTIAL VERSUS COMPLETE OBST Qualifiers: Intestinal obstruction type: volvulus Qualified Code(s): K56.2 - Volvulus (3) Cecal volvulus Assessment/Plan: surgery following. unpaid intern NGT placed to low wall suction, monitor output Code(s): K56.2 - VOLVULUS (4) Diabetes mellitus, insulin dependent (IDDM), controlled Assessment/Plan: monitor bgms q 4 while npo bgms are stable Code(s): E11.9 - TYPE 2 DIABETES MELLITUS WITHOUT COMPLICATIONS; Z79.4 - PEDIATRIC RADIOLOGIST (CURRENT) USE OF INSULIN (5) Prophylactic measure Assessment/Plan: fen on d5/lr monitor electrolytes advance diet per surgery full code Code(s): Z29.9 - ENCOUNTER FOR PROPHYLACTIC MEASURES, UNSPECIFIED Visit type - Emergency Visit Emergency Visit: Yes ED Registration Date: 02/12/19 Care time: The patient presented to the Emergency Department on the above date and was hospitalized for further evaluation of their emergent condition. - New Patient This patient is new to me today: No - Critical Care Critical Care patient: No - Discharge Referral Referred to [facility] Med P.C.: No
[2019-02-16] MEDS ORDERED: DEXTROSE 5%-WATER 100 ML IVPB ONE ×2 (01:56→10:47)
[2019-02-16] MEDS ORDERED: PIPERACILLIN/TAZOBACTAM 4.5 GM VIAL IVPB ONE ×2 (01:56→10:47)
[2019-02-16] MEDS: PIPERACILLIN/TAZOB 4.5 GM 4.5 GM in DEXTROSE 5%-WATER 100 ML IVPB SCH ×2 (02:15→10:52)
[2019-02-16] MEDS: LACTATED RINGERS SOLUTION 1,000 ML/1,000 ML INFUS.BAG IV SCH ×2 (03:39→12:52)
[2019-02-16] MEDS: HEPARIN NA (PORCINE) 5,000 UNITS/ML 1ML VIAL SQ SCH ×3 (06:02→21:04)
[2019-02-16] MEDS: INSULIN SLIDING SCALE (NOVOLOG) 1 VIAL SQ SCH ×4 (06:02→21:05)
[2019-02-16] MEDS ORDERED: INSULIN (NOVOLOG) ASPART 100 UNITS/ML 10ML VIAL ONE ×4 (06:33→20:37)
--- NOTE | 2019-02-16 09:50 | PN ---
Progress Note, Physician Chief Complaint: feels weak, physical therapy ordered. History of Present Illness: Patient is a 58 year old female who was admitted for 9cm cecal volvulus with obstruction. She was taken to the OR on 02/12 and is now s/p ileocecectomy with lysis of adhesions. She was upgraded to the ICU for hypotension and she is now being monitored on med surg. She continues to have an NGT on low intermittent suction and is being followed by surgery. - Current Medication List Current Medications: Active Medications Acetaminophen (Ofirmev Injection -) 1,000 mg IVPB Q6H PRN PRN Reason: PAIN OR FEVER Last Admin: 02/15/19 21:25 Dose: 1,000 mg Bacitracin (Bacitracin -) 1 applic TP BID [facility] Last Admin: 02/15/19 23:29 Dose: 1 applic Benzocaine/Menthol (Cepacol Lozenge -) 1 each MM PRN PRN PRN Reason: SORE THROAT Heparin Sodium (Porcine) (Heparin -) 5,000 unit SQ TID [facility] Last Admin: 02/16/19 06:02 Dose: 5,000 unit Piperacillin Sod/Tazobactam (Sod 4.5 gm/ Dextrose) 100 mls @ 200 mls/hr IVPB Q8H-IV [facility] Last Admin: 02/16/19 02:15 Dose: 200 mls/hr Lactated Ringer's (Lactated Ringers Solution) 1,000 ml in 1,000 mls @ 125 mls/ hr IV ASDIR [facility] Last Admin: 02/16/19 03:39 Dose: 125 mls/hr Insulin Aspart (Novolog Vial Sliding Scale -) 1 vial SQ ACHS [facility]; Protocol Last Admin: 02/16/19 06:02 Dose: 2 units Morphine Sulfate (Morphine Sulfate) 2 mg IVPUSH Q6H PRN PRN Reason: PAIN LEVEL 7-10 Ondansetron HCl (Zofran Injection) 4 mg IVPUSH Q6H PRN PRN Reason: NAUSEA AND/OR VOMITING - Objective Vital Signs: Vital Signs Temperature 98.7 F 02/16/19 06:00 Pulse Rate 107 H 02/16/19 06:00 Respiratory Rate 16 02/16/19 06:00 Blood Pressure 125/55 L 02/16/19 06:00 O2 Sat by Pulse Oximetry (%) 95 02/15/19 15:00 Constitutional: Yes: Calm Eyes: Yes: WNL HENT: Yes: Atraumatic Neck: Yes: Supple Cardiovascular: Yes: Regular Rate and Rhythm Respiratory: Yes: Regular, CTA Bilaterally Gastrointestinal: Yes: Tenderness, Other (NGT) ...Rectal Exam: Yes: Deferred Genitourinary: Yes: [place] Present Extremities: Yes: WNL Edema: LLE: Trace, RLE: Trace Integumentary: Yes: WNL Wound/Incision: Yes: Other Neurological: Yes: Alert, Oriented ...Motor Strength: LLE, RLE (weaknees) Labs: CBC, BMP 02/15/19 05:50 02/15/19 05:50 INR, PTT INR 0.94 (0.83-1.09) 02/12/19 00:00 - ....Imaging Chest X-ray: Pending Problem List - Problems (1) Abdominal pain Assessment/Plan: Pt s/p ileocecectomy with lysis of adhesions for cecal volvulus. Initally in icu when she developoed hypotension and concern for sepsis. Her BP is now stable and heart rate in the 90s. Patient continues to drain via NGT with large amount of output. She was started on clinimax and maintained on LR but discontinued after she developed worsening hypernatremia and electrolyte imbalance. Code(s): R10.9 - UNSPECIFIED ABDOMINAL PAIN (2) Bowel obstruction Assessment/Plan: NPO, NGT in place to low wall suction. On Zosyn per ID. Pain management with Tylenol Zofran as needed for nausea follow up on peritoneal fluid culture blood and urine cultures negative to date Code(s): K56.609 - UNSP INTESTNL OBST, UNSP TO PARTIAL VERSUS COMPLETE OBST Qualifiers: Intestinal obstruction type: volvulus Qualified Code(s): K56.2 - Volvulus (3) Cecal volvulus Assessment/Plan: surgery following. pack operator NGT placed to low wall suction, monitor output Code(s): K56.2 - VOLVULUS (4) DKA, type 2 Assessment/Plan: Patient with serum acetone, low sodium bicarb, anion gap 25 and elevated bgms. abg shows metabolic acidosis ph 7.22 Likely early DKA. She would benefit being monitored in the ICU, but she is refusing. will order: -cmp q 4 -bgms q 4 with close monitor of bgms q 2 hours x 4, then q 4 hours -on d5 1/2 ns with 20 meq -monitor K closely and replete -given levemir 10 units Code(s): E11.10 - TYPE 2 DIABETES MELLITUS WITH KETOACIDOSIS WITHOUT COMA Qualifiers: Diabetes mellitus used car sales manager insulin use: with used car sales manager use Diabetes mellitus complication detail: without coma Qualified Code(s): E11.10 - Type 2 diabetes mellitus with ketoacidosis without coma; Z79.4 - [facility] (current) use of insulin (5) Diabetes mellitus, insulin dependent (IDDM), controlled Assessment/Plan: monitor bgms q 4 while npo bgms are stable Code(s): E11.9 - TYPE 2 DIABETES MELLITUS WITHOUT COMPLICATIONS; Z79.4 - HEEL EMERY BUFFER (CURRENT) USE OF INSULIN (6) Prophylactic measure Assessment/Plan: fen on d5 1/2 ns with 20 meq @ 150cc/hr monitor electrolytes advance diet per surgery full code Code(s): Z29.9 - ENCOUNTER FOR PROPHYLACTIC MEASURES, UNSPECIFIED Visit type - Emergency Visit Emergency Visit: Yes ED Registration Date: 02/12/19 Care time: The patient presented to the Emergency Department on the above date and was hospitalized for further evaluation of their emergent condition. - New Patient This patient is new to me today: No - Critical Care Critical Care patient: No - Discharge Referral Referred to [facility] Med P.C.: No
[2019-02-16] MEDS ORDERED: PT OWN MED DRAWER 7, Y5N ONE (11:34)
--- NOTE | 2019-02-16 12:03 | PN ---
Progress Note, Physician History of Present Illness: stable still draining ng tube no gi function yet - Current Medication List Current Medications: Active Medications Acetaminophen (Ofirmev Injection -) 1,000 mg IVPB Q6H PRN PRN Reason: PAIN OR FEVER Last Admin: 02/15/19 21:25 Dose: 1,000 mg Bacitracin (Bacitracin -) 1 applic TP BID [facility] Last Admin: 02/15/19 23:29 Dose: 1 applic Benzocaine/Menthol (Cepacol Lozenge -) 1 each MM PRN PRN PRN Reason: SORE THROAT Heparin Sodium (Porcine) (Heparin -) 5,000 unit SQ TID [facility] Last Admin: 02/16/19 06:02 Dose: 5,000 unit Piperacillin Sod/Tazobactam (Sod 4.5 gm/ Dextrose) 100 mls @ 200 mls/hr IVPB Q8H-IV [facility] Last Admin: 02/16/19 10:52 Dose: 200 mls/hr Lactated Ringer's (Lactated Ringers Solution) 1,000 ml in 1,000 mls @ 125 mls/ hr IV [facility]IR [facility] Last Admin: 02/16/19 03:39 Dose: 125 mls/hr Insulin Aspart (Novolog Vial Sliding Scale -) 1 vial SQ ACHS [facility]; Protocol Last Admin: 02/16/19 06:02 Dose: 2 units Morphine Sulfate (Morphine Sulfate) 2 mg IVPUSH Q6H PRN PRN Reason: PAIN LEVEL 7-10 Ondansetron HCl (Zofran Injection) 4 mg IVPUSH Q6H PRN PRN Reason: NAUSEA AND/OR VOMITING - Objective Vital Signs: Vital Signs Temperature 97.5 F L 02/16/19 10:44 Pulse Rate 100 H 02/16/19 10:44 Respiratory Rate 20 02/16/19 10:44 Blood Pressure 131/74 02/16/19 10:44 O2 Sat by Pulse Oximetry (%) 95 02/15/19 15:00 Constitutional: Yes: No Distress, Calm Cardiovascular: Yes: S1, S2 Respiratory: Yes: Regular, CTA Bilaterally Gastrointestinal: Yes: Soft, Other (absent owel sounds,ng in place) Musculoskeletal: Yes: WNL Extremities: Yes: WNL Neurological: Yes: Alert, Oriented Psychiatric: Yes: Alert, Oriented Labs: CBC, BMP 02/15/19 05:50 02/15/19 05:50 INR, PTT INR 0.94 (0.83-1.09) 02/12/19 00:00 Assessment/Plan Problem List - Problems (1) Cecal volvulus Code(s): K56.2 - VOLVULUS (2) Other complete intestinal obstruction Code(s): K56.691 - OTHER COMPLETE INTESTINAL OBSTRUCTION (3) Generalized abdominal pain Code(s): R10.84 - GENERALIZED ABDOMINAL PAIN (4) Nausea & vomiting Code(s): R11.2 - NAUSEA WITH VOMITING, UNSPECIFIED Qualifiers: Vomiting type: unspecified Vomiting Intractability: non-intractable Qualified Code(s): R11.2 - Nausea with vomiting, unspecified (5) Diabetes mellitus, insulin dependent (IDDM), controlled Code(s): E11.9 - TYPE 2 DIABETES MELLITUS WITHOUT COMPLICATIONS; Z79.4 - JUNIOR JAVA DEVELOPER (CURRENT) USE OF 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 female with PMH of IDDM, fibroids s/p myomectomy, liposuction, and appendectomy presented with c/o abd pain/n/v that began 3 days ago Cecal volvulus/SBO s/p ileocecectomy and RAIN POD#0 IDDM Hx Fibroids s/p myomectomy -- operative note reviewed -- continue Zosyn will stop abx rest as per the team
[2019-02-16 12:28] LABS: BASO % 0.3 % (0-2.0); EOS % 0.1 % (0-4.5); HEMATOCRIT 37.2 % (32.4-45.2); HEMOGLOBIN 12.1 GM/dL (10.7-15.3); LYMPH % 9.5 % (8-40); MCH 34.1 pg (25.7-33.7); MCHC 32.6 g/dl (32.0-36.0); MEAN CELL VOLUME 104.7 fl (80-96); MEAN PLT VOLUME 6.6 fl (7.5-11.1); MONO % 7.7 % (3.8-10.2); NEUT % 82.4 % (42.8-82.8); PLATELET COUNT 463 K/MM3 (134-434); RBC 3.55 M/mm3 (3.60-5.2); RDW 13.9 % (11.6-15.6); WHITE BLOOD COUNT 11.6 K/mm3 (4.0-10.0)
[2019-02-16 13:02] LABS: BLOOD UREA NITROGEN 18.8 mg/dL (7-18); MAGNESIUM 2.6 mg/dL (1.8-2.4); PHOSPHOROUS 2.2 mg/dL (2.5-4.9); POTASSIUM 3.9 mmol/L (3.5-5.1)
[2019-02-16] MEDS ORDERED: LACTATED RINGERS SOLUTION 1,000 ML/1,000 ML INFUS.BAG IV SCH (13:29)
--- NOTE | 2019-02-16 13:44 | PN ---
Progress Note, Physician History of Present Illness: Pt s/p ileocecectomy with lysis of adhesions for cecal volvulus. Was in ICU for frequent monitoring, early septic response with third-spacing fluids postop, in part likely related to correction of volvulus before resection and systemic distribution of inflammatory mediators from compromised cecum. She has excellent UOP in [place], 5L yesterday, very light yellow in bag. BPs increasing with mild tachycardia. PRN IV tylenol for pain. Using IS, ambulated earlier but pt states she feels very weak overall. She is worried about getting enough nutrition. NGT in place, with 1500ml out yesterday. She is seen and examined in bed. Has not passed gas yet. Chewing gum and using lozenges for NG discomfort. - Current Medication List Current Medications: Active Medications Acetaminophen (Ofirmev Injection -) 1,000 mg IVPB Q6H PRN PRN Reason: PAIN OR FEVER Last Admin: 02/15/19 21:25 Dose: 1,000 mg Bacitracin (Bacitracin -) 1 applic TP BID [facility] Last Admin: 02/15/19 23:29 Dose: 1 applic Benzocaine/Menthol (Cepacol Lozenge -) 1 each MM PRN PRN PRN Reason: SORE THROAT Heparin Sodium (Porcine) (Heparin -) 5,000 unit SQ TID [facility] Last Admin: 02/16/19 06:02 Dose: 5,000 unit Lactated Ringer's (Lactated Ringers Solution) 1,000 ml in 1,000 mls @ 50 mls/ hr IV ASDIR [facility] Amino Acids (Clinimix -) 1,000 mls @ 84 mls/hr IV Q12H [facility] Insulin Aspart (Novolog Vial Sliding Scale -) 1 vial SQ ACHS [facility]; Protocol Morphine Sulfate (Morphine Sulfate) 2 mg IVPUSH Q6H PRN PRN Reason: PAIN LEVEL 7-10 Ondansetron HCl (Zofran Injection) 4 mg IVPUSH Q6H PRN PRN Reason: NAUSEA AND/OR VOMITING - Objective Vital Signs: Vital Signs Temperature 97.5 F L 02/16/19 10:44 Pulse Rate 100 H 02/16/19 10:44 Respiratory Rate 20 02/16/19 10:44 Blood Pressure 131/74 02/16/19 10:44 O2 Sat by Pulse Oximetry (%) 95 02/15/19 15:00 Intake & Output 02/15/19 02/16/19 02/16/19 23:59 07:59 15:59 Intake Total 425 1400 100 Output Total 1500 2790 Balance -1075 -1390 100 Intake: IV 325 1200 D5-Lr - 1,000 ml @ 100 200 mls/hr IV [facility]IR [facility] Rx#: [id number] LACTATED RINGERS SOLUTION 125 1200 1,000 ml In 1,000 ml @ 125 mls/hr IV [facility] Rx#:[id number] IVPB 100 200 100 Oral 0 Output: Gastric Drainage 500 790 Urine 1000 2000 [place] 1000 2000 Other: Voiding Method Indwelling Catheter Indwelling Catheter Indwelling Catheter Bowel Movement No Constitutional: Yes: Well Nourished, No Distress, Calm Eyes: Yes: Conjunctiva Clear, EOM Intact HENT: Yes: Atraumatic, Normocephalic, Other (NG in place) Gastrointestinal: Yes: Soft, Hypoactive Bowel Sounds (present but sparse), Tenderness (mild RLQ, incisional). No: Distention, Tenderness, Rebound Genitourinary: Yes: [place] Present, Polyuria. No: Hematuria Extremities: No: Cool, Cyanosis Integumentary: Yes: Incision (midline). No: Jaundice, Rash Wound/Incision: Yes: Well Approximated, Marshall Intact, Dressing Dry and Intact , Dressing Removed (x2 and replaced with 1/2" ribbon, gauze and tape), Unapproximated (at two sites only- clean, serous drainage on packing, no granulation yet), Other (tiny skin tear at upper right abdomen with bandaid, healing) Neurological: Yes: Alert, Oriented Labs: CBC, BMP 02/16/19 12:05 02/16/19 12:05 INR, PTT INR 0.94 (0.83-1.09) 02/12/19 00:00 Problem List - Problems (1) Cecal volvulus Assessment/Plan: POD4 s/p ileocecectomy with lysis of adhesions for cecal volvulus making slow progress may be autodiuresing some continue NPO/IVF/NGT but may chew gum and use lozenges few bowel sounds today but no flatus yet will start Clinimix NG will stay until bowel function resumes postop [place] for accurate I/Os antibiotic stopped per ID IV tylenol first line GI/DVT prophylaxis midline wound dressings to be changed with 1/2" plain ribbon packing daily, cover with small gauze and tape just to hold pt will need VNS on d/c home for wound care, family will learn dressing changes as well OOB as able - ambulate as able PT ordered to see IS/pulm toilet await resumption of bowel function continue fingersticks with SSI insulin prn discussed with PERISHABLE FREIGHT INSPECTOR Shaun Code(s): K56.2 - VOLVULUS (2) Other complete intestinal obstruction Code(s): K56.691 - OTHER COMPLETE INTESTINAL OBSTRUCTION (3) Generalized abdominal pain Code(s): R10.84 - GENERALIZED ABDOMINAL PAIN (4) Diabetes mellitus, insulin dependent (IDDM), controlled Assessment/Plan: FS with sliding scale insulin NPO until bowel function resumes defer to medicine for glucose management Code(s): E11.9 - TYPE 2 DIABETES MELLITUS WITHOUT COMPLICATIONS; Z79.4 - TRAILER SECTIONS ASSEMBLER (CURRENT) USE OF INSULIN
[2019-02-16 15:34] LABS: ANISOCYTOSIS 0; MACROCYTOSIS 0; PLATELET ESTIMATE NORMAL
[2019-02-16] MEDS: BENZOCAINE/MENTH/CETYLPYRD CL 1 EACH LOZENGE MM PRN ×2 (16:20→21:05)
[2019-02-16] MEDS: AMINO ACIDS 4.25%/D5W 1,000 ML IV SCH (16:21)
[2019-02-16] MEDS: BACITRACIN 15 GM TUBE TOPICAL OINTMENT TP SCH ×2 (16:30→21:04)
[2019-02-17] MEDS: AMINO ACIDS 4.25%/D5W 1,000 ML IV SCH (03:35)
[2019-02-17] MEDS: INSULIN SLIDING SCALE (NOVOLOG) 1 VIAL SQ SCH ×5 (06:58→22:27)
[2019-02-17] MEDS: HEPARIN NA (PORCINE) 5,000 UNITS/ML 1ML VIAL SQ SCH ×3 (06:58→22:28)
[2019-02-17] MEDS: BENZOCAINE/MENTH/CETYLPYRD CL 1 EACH LOZENGE MM PRN (07:01)
[2019-02-17 09:02] LABS: BASO % 0.4 % (0-2.0); HEMATOCRIT 39.3 % (32.4-45.2); HEMOGLOBIN 12.4 GM/dL (10.7-15.3); LYMPH % 9.2 % (8-40); MCH 34.2 pg (25.7-33.7); MCHC 31.6 g/dl (32.0-36.0); MEAN CELL VOLUME 108.4 fl (80-96); MEAN PLT VOLUME 6.8 fl (7.5-11.1); MONO % 6.7 % (3.8-10.2); NEUT % 83.7 % (42.8-82.8); PLATELET COUNT 540 K/MM3 (134-434); RBC 3.63 M/mm3 (3.60-5.2); RDW 14.5 % (11.6-15.6); WHITE BLOOD COUNT 9.5 K/mm3 (4.0-10.0)
[2019-02-17 09:33] LABS: ALBUMIN 3.1 g/dl (3.4-5.0); ALK PHOS 90 U/L (45-117); ANION GAP 25 MMOL/L (8-16); BILIRUBIN,TOTAL 0.5 mg/dL (0.2-1); BLOOD UREA NITROGEN 32.9 mg/dL (7-18); CALCIUM 9.8 mg/dL (8.5-10.1); CHLORIDE 119 mmol/L (98-107); CO2 8 mmol/L (21-32); CREATININE 1.1 mg/dL (0.55-1.3); GLUCOSE,RANDOM 329 mg/dL (74-106); MAGNESIUM 2.7 mg/dL (1.8-2.4); PHOSPHOROUS 2.2 mg/dL (2.5-4.9); POTASSIUM 3.7 mmol/L (3.5-5.1); SGOT/AST 10 U/L (15-37); SGPT/ALT 15 U/L (13-61); SODIUM 153 mmol/L (136-145); TOT PROT 7.8 g/dl (6.4-8.2)
--- NOTE | 2019-02-17 10:06 | PN ---
Progress Note, Physician History of Present Illness: patient feels very weak still no gi function ng tube drain decreasing - Current Medication List Current Medications: Active Medications Acetaminophen (Ofirmev Injection -) 1,000 mg IVPB Q6H PRN PRN Reason: PAIN OR FEVER Last Admin: 02/15/19 21:25 Dose: 1,000 mg Bacitracin (Bacitracin -) 1 applic TP BID [facility] Last Admin: 02/16/19 21:04 Dose: 1 applic Benzocaine/Menthol (Cepacol Lozenge -) 1 each MM PRN PRN PRN Reason: SORE THROAT Last Admin: 02/17/19 07:01 Dose: 1 each Heparin Sodium (Porcine) (Heparin -) 5,000 unit SQ TID [facility] Last Admin: 02/17/19 06:58 Dose: 5,000 unit Amino Acids (Clinimix -) 1,000 mls @ 84 mls/hr IV Q12H [facility] Last Admin: 02/17/19 03:35 Dose: 84 mls/hr Insulin Aspart (Novolog Vial Sliding Scale -) 1 vial SQ ACHS [facility]; Protocol Last Admin: 02/17/19 06:58 Dose: 10 units Morphine Sulfate (Morphine Sulfate) 2 mg IVPUSH Q6H PRN PRN Reason: PAIN LEVEL 7-10 Ondansetron HCl (Zofran Injection) 4 mg IVPUSH Q6H PRN PRN Reason: NAUSEA AND/OR VOMITING - Objective Vital Signs: Vital Signs Temperature 98 F 02/17/19 06:00 Pulse Rate 96 H 02/17/19 06:00 Respiratory Rate 20 02/17/19 06:00 Blood Pressure 137/74 02/17/19 06:00 O2 Sat by Pulse Oximetry (%) 100 02/16/19 21:00 Constitutional: Yes: Calm, Mild Distress Cardiovascular: Yes: S1, S2 Respiratory: Yes: Regular, CTA Bilaterally Gastrointestinal: Yes: Soft, Other (ng tube in place) Musculoskeletal: Yes: WNL Extremities: Yes: WNL Neurological: Yes: Alert, Oriented Psychiatric: Yes: Alert, Oriented Labs: CBC, BMP 02/17/19 07:45 02/17/19 07:45 INR, PTT INR 0.94 (0.83-1.09) 02/12/19 00:00 Assessment/Plan Problem List - Problems (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 female with PMH of IDDM, fibroids s/p myomectomy, liposuction, and appendectomy presented with c/o abd pain/n/v that began 3 days ago Cecal volvulus/SBO s/p ileocecectomy and RAIN POD#0 IDDM Hx Fibroids s/p myomectomy -plan will stop zosyn and monitor continue current mgmt await for gi function rest as per the team
[2019-02-17 10:57] LABS: ANISOCYTOSIS 0; MACROCYTOSIS 1+; PLATELET ESTIMATE INCREASED
[2019-02-17] MEDS ORDERED: SODIUM CHLORIDE 1,000 ML IV STA (12:05)
[2019-02-17] MEDS ORDERED: AMINO ACIDS 4.25%/D5W 1,000 ML IV SCH ×2 (12:23→13:01)
[2019-02-17] MEDS ORDERED: DEXTROSE 5%-LACTATED RINGERS 1,000 ML IV SCH ×3 (12:30)
[2019-02-17] MEDS ORDERED: DEXTROSE 5%-0.45% SALINE 1,000 ML IV SCH (12:30)
[2019-02-17] MEDS ORDERED: INSULIN (NOVOLOG) ASPART 100 UNITS/ML 10ML VIAL ONE (12:42)
[2019-02-17] MEDS: BACITRACIN 15 GM TUBE TOPICAL OINTMENT TP SCH ×2 (12:45→22:29)
[2019-02-17 12:51] LABS: ACETONE SERUM POSITIVE SMALL 1+ (NEGATIVE)
[2019-02-17 12:54] LABS: ARTERIAL BLD GAS O2 SATURATION 97.8 % (95-98); ARTERIAL BLOOD GAS BASE EXCESS -17.7 meq/l (-2-2); ARTERIAL BLOOD GAS PO2 112 mmHg (80-100); ARTERIAL BLOOD GAS pH 7.22 (7.35-7.45)
[2019-02-17 12:56] LABS: ALLENS TEST POSITIVE
--- NOTE | 2019-02-17 13:43 | PN ---
Progress Note, Physician History of Present Illness: Pt s/p ileocecectomy with lysis of adhesions for cecal volvulus. Was in ICU for frequent monitoring, early septic response with third-spacing fluids postop, in part likely related to correction of volvulus before resection and systemic distribution of inflammatory mediators from compromised cecum. She has maintained excellent UOP and has Weldon with nearly clear urine, very light yellow. BPs increasing with mild tachycardia. PRN IV tylenol for pain. Using IS , ambulated earlier but pt states she feels very weak overall. She is worried about getting enough nutrition. NGT in place, with 1500ml out yesterday. She is seen and examined in bed. Feels like she is about to, but has not passed gas yet. Chewing gum and using lozenges for NG discomfort. - Current Medication List Current Medications: Active Medications Acetaminophen (Ofirmev Injection -) 1,000 mg IVPB Q6H PRN PRN Reason: PAIN OR FEVER Last Admin: 02/15/19 21:25 Dose: 1,000 mg Bacitracin (Bacitracin -) 1 applic TP BID [facility] Last Admin: 02/17/19 12:45 Dose: 1 applic Benzocaine/Menthol (Cepacol Lozenge -) 1 each MM PRN PRN PRN Reason: SORE THROAT Last Admin: 02/17/19 07:01 Dose: 1 each Heparin Sodium (Porcine) (Heparin -) 5,000 unit SQ TID [facility] Last Admin: 02/17/19 06:58 Dose: 5,000 unit Dextrose/Sodium Chloride (D5-1/2ns -) 1,000 mls @ 83 mls/hr IV ASDIR [facility] Last Admin: 02/17/19 12:49 Dose: 83 mls/hr Amino Acids (Clinimix -) 1,000 mls @ 45 mls/hr IV Q22H [facility] Insulin Aspart (Novolog Vial Sliding Scale -) 1 vial SQ ACHS [facility]; Protocol Last Admin: 02/17/19 12:44 Dose: 12 units Insulin Detemir (Levemir Vial) 5 units SQ HS [facility] Ondansetron HCl (Zofran Injection) 4 mg IVPUSH Q6H PRN PRN Reason: NAUSEA AND/OR VOMITING - Objective Vital Signs: Vital Signs Temperature 97.9 F 02/17/19 10:08 Pulse Rate 107 H 02/17/19 10:08 Respiratory Rate 18 02/17/19 10:08 Blood Pressure 127/81 02/17/19 10:08 O2 Sat by Pulse Oximetry (%) 100 02/16/19 21:00 Constitutional: Yes: Well Nourished, No Distress, Calm Eyes: Yes: Conjunctiva Clear, EOM Intact HENT: Yes: Atraumatic, Normocephalic, Other (NGT in place with light brown drainage, ~300ml since am, 700ml in canister) Gastrointestinal: Yes: Soft, Hypoactive Bowel Sounds (few present in all quadrants), Tenderness (mild RUQ/incisional only). No: Distention Genitourinary: Yes: [place] Present, Polyuria Extremities: No: Cool, Cyanosis Integumentary: Yes: Incision (midline w/raza and two small wounds). No: Jaundice, Rash Wound/Incision: Yes: Clean/Dry, Well Approximated (between wounds), [place] Intact, Dressing Dry and Intact (intact with serous drainage x2), Dressing Removed (and both changed - 1/2" plain ribbon packing with gauze and tape over) , Unapproximated (two small wounds, clean, starting to granulate). No: Reddened Neurological: Yes: Alert, Oriented, Lethargy (somewhat down/defeated, feeling weak, speaking slowly) Labs: CBC, BMP 02/17/19 07:45 02/17/19 07:45 CMP Sodium 153 mmol/L (136-145) H 02/17/19 07:45 Potassium 3.7 mmol/L (3.5-5.1) 02/17/19 07:45 Chloride 119 mmol/L (98-107) H 02/17/19 07:45 Carbon Dioxide 8 mmol/L (21-32) L 02/17/19 07:45 Anion Gap 25 MMOL/L (8-16) H 02/17/19 07:45 BUN 32.9 mg/dL (7-18) H 02/17/19 07:45 Creatinine 1.1 mg/dL (0.55-1.3) 02/17/19 07:45 Est GFR (CKD-EPI)AfAm 63.20 02/17/19 07:45 Est GFR (CKD-EPI)NonAf 54.53 02/17/19 07:45 POC Glucometer 304 UNITS (80-120) 02/17/19 12:11 Random Glucose 329 mg/dL (74-106) H 02/17/19 07:45 Lactic Acid pending Calcium 9.8 mg/dL (8.5-10.1) 02/17/19 07:45 Phosphorus 2.2 mg/dL (2.5-4.9) L 02/17/19 07:45 Magnesium 2.7 mg/dL (1.8-2.4) H 02/17/19 07:45 Total Bilirubin 0.5 mg/dL (0.2-1) 02/17/19 07:45 AST 10 U/L (15-37) L 02/17/19 07:45 ALT 15 U/L (13-61) 02/17/19 07:45 Alkaline Phosphatase 90 U/L (45-117) 02/17/19 07:45 Troponin I < 0.03 ng/ml (0.00-0.05) 02/11/19 19:00 Total Protein 7.8 g/dl (6.4-8.2) 02/17/19 07:45 Albumin 3.1 g/dl (3.4-5.0) L 02/17/19 07:45 Prealbumin 10.5 mg/dl (20-40) L 02/17/19 07:45 Lipase 139 U/L (73-393) 02/11/19 19:00 ABG Results ABG pH 7.22 (7.35-7.45) L 02/17/19 12:45 ABG pCO2 at Pt Temp 22.0 mmHg (35-45) L 02/17/19 12:45 ABG pO2 at Pt Temp 112 mmHg (80-100) H 02/17/19 12:45 ABG HCO3 8.6 mmol/L (22-27) L 02/17/19 12:45 ABG O2 Sat (Measured) 97.8 % (95-98) 02/17/19 12:45 ABG O2 Content 17.0 % vol 02/17/19 12:45 ABG Base Excess -17.7 meq/l (-2-2) L 02/17/19 12:45 acetone 1+, small Na/Cl, glucose very elevated BUN/Cr up bicarb very low metabolic acidosis early DKA prealbumin low Problem List - Problems (1) Cecal volvulus Assessment/Plan: POD5 s/p ileocecectomy with lysis of adhesions for cecal volvulus making slow progress toward GI function continue NPO/IVF/NGT but may chew gum and use lozenges has some bowel sounds but no flatus yet on Clinimix NG will stay until bowel function resumes postop [place] for accurate I/Os antibiotic stopped per ID yesterday, wbc normal IV tylenol first line GI/DVT prophylaxis midline wounds clean, starting to granulate dressings to be changed with 1/2" plain ribbon packing daily, cover with small gauze and tape just to hold pt will need VNS on d/c home for wound care, family will learn dressing changes as well OOB as able - ambulate as able PT to see IS/pulm toilet await resumption of bowel function discussed with JESSICA Dunn Code(s): K56.2 - VOLVULUS (2) DKA, type 2 Assessment/Plan: nephrology consulted discussed with Dr. 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
[2019-02-17] MEDS ORDERED: INSULIN (LEVEMIR) 100 UNITS/ML UNITS SQ ONE (13:49)
[2019-02-17] MEDS ORDERED: INSULIN (LEVEMIR) 100 UNITS/ML UNITS SQ SCH ×3 (13:49→22:00)
[2019-02-17] MEDS ORDERED: D5-1/2NS+20 MEQ KCL - 20 MEQ/1,000 ML INFUS.BAG IV SCH ×2 (14:00→14:02)
--- NOTE | 2019-02-17 14:21 | CON.NEP ---
Consult Consult Specialty:: Nephrology Reason for Consultation:: metabolic acidosis - History of Present Illness Chief Complaint: polyuria - History Source History Provided By: Patient, Medical Record, Caregiver Limitations to Obtaining History: No Limitations - Past Medical History Gastrointestinal: Yes: Other (cecal volvulus) Endocrine: Yes: Diabetes Mellitus - Past Surgical History Additional Surgical History: liposuction; myomectomy - Alcohol/Substance Use Hx Alcohol Use: Yes (Occasional) History of Substance Use: reports: None - Smoking History Smoking history: Never smoked Have you smoked in the past 12 months: No - Social History Usual Living Arrangement: With Spouse ADL: Independent 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 History of Recent Travel: No Home Medications - Allergies Allergies/Adverse Reactions: Allergies Allergy/AdvReac Type Severity Reaction Status Date / Time No Known Allergies Allergy Verified 02/11/19 18:07 - Home Medications Home Medications: Ambulatory Orders Insulin Glargine,Hum.rec.anlog [Lantus] 9 unit SQ HS 02/11/19 Insulin Lispro [Humalog] unit SQ TID 02/11/19 Family Disease History - Family Disease History Family Disease History: Diabetes: Father (stomach, dx in 70s, of), Mother ( uterine, dx at 88, of), [place]: Father, Mother Review of Systems - Review of Systems Constitutional: reports: Weakness Eyes: reports: No Symptoms HENT: reports: No Symptoms Neck: reports: No Symptoms Cardiovascular: reports: No Symptoms Respiratory: reports: No Symptoms Gastrointestinal: reports: No Symptoms Genitourinary: reports: Frequency Breasts: reports: No Symptoms Reported Musculoskeletal: reports: No Symptoms Integumentary: reports: No Symptoms Neurological: reports: No Symptoms Endocrine: reports: No Symptoms Hematology/Lymphatic: reports: No Symptoms Psychiatric: reports: No Symptoms Nephrology Consult - Height Height: 5 ft 4 in - Weight Weight: 119 lb - BMI Body Mass Index (BMI): 20.4 - Lab Results CBC,BMP: CBC, BMP 02/17/19 07:45 02/17/19 07:45 Anion Gap: Anion Gap Anion Gap 25 MMOL/L (8-16) H 02/17/19 07:45 - Imaging Chest X-ray: Report Reviewed Cat Scan: Report Reviewed - Physical Examination Vital Signs: Vital Signs Temperature 97.9 F 02/17/19 10:08 Pulse Rate 107 H 02/17/19 10:08 Respiratory Rate 18 02/17/19 10:08 Blood Pressure 127/81 02/17/19 10:08 O2 Sat by Pulse Oximetry (%) 100 02/16/19 21:00 Constitutional: Yes: No Distress, Calm Eyes: Yes: Conjunctiva Clear, EOM Intact HENT: Yes: Atraumatic, Normocephalic, Other (dry oral mucosa) Neck: Yes: Supple, Trachea Midline Cardiovascular: Yes: Regular Rate and Rhythm Respiratory: Yes: Regular, CTA Bilaterally Gastrointestinal: Yes: Soft, Other (bowel sounds present but slow) Renal/: Yes: WNL Musculoskeletal: Yes: WNL Extremities: Yes: WNL Edema: No Peripheral Pulses WNL: No Wound/Incision: Yes: Clean/Dry Neurological: Yes: Alert, Babinski negative Psychiatric: Yes: Alert, Oriented Assessment/Plan 58 year old lady who is diabetic and is maintained on insulin as outpatient and now has high anion gap metabolic acidosis, hypernatremia and a ph of 7.22. She is status post surgery to correct a cecal volvulus PLAN I suspect she has DKA especially since she has a history of this and has anion gap acidosis with ketones. Would therefore treat as DKA. I suggested transfer to ICU but she has refused. Will need basal insulin and frequent short acting insulin doses untill her anion gap improves. Needs potassiun in fluids. Would give d5 1/2 ns with 40 of kcl and dc clinimix discussed with medical and surgical attendings MV
[2019-02-17 17:10] LABS: BILIRUBIN,TOTAL 0.4 mg/dL (0.2-1); BLOOD UREA NITROGEN 35.2 mg/dL (7-18); CALCIUM 9.6 mg/dL (8.5-10.1); TOT PROT 7.6 g/dl (6.4-8.2)
[2019-02-17] MEDS: KCL 10 MEQ IVPB 10 MEQ/100 ML INFUS.BAG IVPB SCH ×2 (17:19→20:17)
[2019-02-17] MEDS ORDERED: PT OWN MED DRAWER 7, Y5N ONE (19:31)
[2019-02-17] MEDS: ACETAMINOPHEN 1000 MG/100 ML VIAL (NON FORMULARY) IVPB PRN (19:37)
[2019-02-17] MEDS: D5-1/2NS+40 MEQ KCL - 40 MEQ/1,000 ML INFUS.BAG IV SCH (22:08)
[2019-02-18 00:45] LABS: ARTERIAL BLD GAS O2 SATURATION 98.2 % (95-98); ARTERIAL BLOOD GAS BASE EXCESS -8.6 meq/l (-2-2); ARTERIAL BLOOD GAS PCO2 29.9 mmHg (35-45); ARTERIAL BLOOD GAS PO2 101 mmHg (80-100); ARTERIAL BLOOD GAS pH 7.34 (7.35-7.45)
[2019-02-18 00:46] LABS: ALLENS TEST POSITIVE
[2019-02-18 02:01] LABS: CALCIUM 9.7 mg/dL (8.5-10.1); MAGNESIUM 2.7 mg/dL (1.8-2.4); POTASSIUM 3.4 mmol/L (3.5-5.1)
[2019-02-18 02:37] LABS: PHOSPHOROUS 0.8 mg/dL (2.5-4.9)
[2019-02-18] MEDS: D5-1/2NS+40 MEQ KCL - 40 MEQ/1,000 ML INFUS.BAG IV SCH ×3 (04:53→22:31)
[2019-02-18] MEDS: INSULIN SLIDING SCALE (NOVOLOG) 1 VIAL SQ SCH ×4 (06:34→21:30)
[2019-02-18] MEDS: HEPARIN NA (PORCINE) 5,000 UNITS/ML 1ML VIAL SQ SCH ×3 (06:34→21:29)
[2019-02-18 07:51] LABS: BASO % 0.4 % (0-2.0); EOS % 0.2 % (0-4.5); HEMATOCRIT 37.1 % (32.4-45.2); HEMOGLOBIN 12.4 GM/dL (10.7-15.3); LYMPH % 10.1 % (8-40); MCH 34.3 pg (25.7-33.7); MCHC 33.3 g/dl (32.0-36.0); MEAN CELL VOLUME 102.8 fl (80-96); MEAN PLT VOLUME 6.7 fl (7.5-11.1); MONO % 10.3 % (3.8-10.2); PLATELET COUNT 531 K/MM3 (134-434); RBC 3.61 M/mm3 (3.60-5.2); RDW 13.7 % (11.6-15.6); WHITE BLOOD COUNT 8.6 K/mm3 (4.0-10.0)
[2019-02-18 07:57] LABS: BILIRUBIN,TOTAL 0.5 mg/dL (0.2-1); BLOOD UREA NITROGEN 27.6 mg/dL (7-18); CALCIUM 9.7 mg/dL (8.5-10.1); CREATININE 0.8 mg/dL (0.55-1.3); MAGNESIUM 2.7 mg/dL (1.8-2.4); POTASSIUM 3.9 mmol/L (3.5-5.1); TOT PROT 7.4 g/dl (6.4-8.2)
[2019-02-18] MEDS ORDERED: INSULIN (LEVEMIR) 100 UNITS/ML UNITS SQ ONE ×2 (08:30→09:15)
[2019-02-18] MEDS ORDERED: INSULIN (NOVOLOG) ASPART 100 UNITS/ML 10ML VIAL ONE (09:15)
[2019-02-18 09:28] LABS: PHOSPHOROUS 1.1 mg/dL (2.5-4.9)
[2019-02-18] MEDS ORDERED: POTASSIUM PHOSPHATE 45 MM in SODIUM CHLORIDE 500 ML IVPB ONE (09:31)
[2019-02-18] MEDS: BACITRACIN 15 GM TUBE TOPICAL OINTMENT TP SCH ×2 (10:26→11:43)
--- NOTE | 2019-02-18 11:26 | PN ---
Progress Note (short form) - Note Progress Note: RENAL Pt awake and alert passing gas walking around unit states she feels better Last Vital Signs Temp Pulse Resp BP Pulse Ox 97.5 F L 91 H 18 148/78 100 02/18/19 10:00 02/18/19 10:00 02/18/19 10:00 02/18/19 10:00 02/17/19 21:00 lungs clear cvs s1s2 rr abd soft ext no edema neuro a+ox3 CBC, BMP 02/18/19 06:00 02/18/19 06:00 Current Medications Generic Name Dose Route Start Last Admin Trade Name Freq PRN Reason Stop Dose Admin Acetaminophen 1,000 mg 02/15/19 14:37 02/17/19 19:37 Ofirmev Injection - IVPB 1,000 mg Q6H PRN Administration PAIN OR FEVER Bacitracin 1 applic 02/15/19 22:00 02/18/19 10:26 Bacitracin - TP 1 applic BID [facility] Administration Benzocaine/Menthol 1 each 02/15/19 13:26 02/17/19 07:01 Cepacol Lozenge - MM 1 each PRN PRN Administration SORE THROAT Heparin Sodium (Porcine) 5,000 unit 02/15/19 14:00 02/18/19 06:34 Heparin - SQ 5,000 unit TID [facility] Administration Dextrose/Sodium Chloride 40 meq in 1,000 mls @ 150 mls/hr 02/17/19 22:00 01/29 04:53 D5-1/2ns+40 Meq Kcl - IV 150 mls/hr ASDIR [facility] Administration Potassium Phosphate 45 mm/ 515 mls @ 62.5 mls/hr 02/18/19 09:31 Sodium Chloride IVPB 02/18/19 17:45 ONCE ONE Insulin Aspart 1 vial 02/17/19 12:04 02/18/19 06:34 Novolog Vial Sliding Scale - SQ 12 units ACHS [facility] Administration Protocol Ondansetron HCl 4 mg 02/15/19 13:26 Zofran Injection IVPUSH Q6H PRN NAUSEA AND/OR VOMITING IMPRESSION DKA s/p ileocecectomy and lysis of adhesions for ileal volvulus hypernatremia PLAN management discussed with surgery and primary keep monitoring closely give short acting insulin every 4 hours continue fluids with k and monitor levels MV
[2019-02-18] MEDS ORDERED: INSULIN SLIDING SCALE (NOVOLOG) 1 VIAL SQ SCH ×2 (11:52→14:45)
[2019-02-18 11:55] LABS: ANISOCYTOSIS 1+; MACROCYTOSIS 1+; PLATELET ESTIMATE INCREASED
--- NOTE | 2019-02-18 12:02 | PN ---
Progress Note, Physician History of Present Illness: Pt s/p ileocecectomy with lysis of adhesions for cecal volvulus. Was in ICU for frequent monitoring, early septic response with third-spacing fluids postop, in part likely related to correction of volvulus before resection and systemic distribution of inflammatory mediators from compromised cecum. She has had polyuria and has Weldon with nearly clear urine, very light yellow. Using IS, ambulating, chewing gum and using lozenges. NGT in place; last night she finally passed flatus - tube was clamped and she is taking ice chips without nausea or increased pain. Yesterday, she went into early DKA with hypernatremia, dehydration, hyperglycemia, and metabolic acidosis. Nephrology saw her, and she refused ICU transfer. She has been given insulin, generous fluids with D5, and electrolyte replacement, with labs that are now improving. Sugars are still high, but improving. She is seen sitting at the end of the pacheco, ambulated back to be examined in bed. Still passing flatus, NG has been clamped all night. Tube is removed at bedside. Minimal pain. is present - he is shown how to do abdominal wound dressings. - Current Medication List Current Medications: Active Medications Acetaminophen (Ofirmev Injection -) 1,000 mg IVPB Q6H PRN PRN Reason: PAIN OR FEVER Last Admin: 02/17/19 19:37 Dose: 1,000 mg Bacitracin (Bacitracin -) 1 applic TP BID [facility] Last Admin: 02/18/19 10:26 Dose: 1 applic Benzocaine/Menthol (Cepacol Lozenge -) 1 each MM PRN PRN PRN Reason: SORE THROAT Last Admin: 02/17/19 07:01 Dose: 1 each Heparin Sodium (Porcine) (Heparin -) 5,000 unit SQ TID [facility] Last Admin: 02/18/19 06:34 Dose: 5,000 unit Dextrose/Sodium Chloride (D5-1/2ns+40 Meq Kcl -) 40 meq in 1,000 mls @ 150 mls/ hr IV ASDIR [facility] Last Admin: 02/18/19 04:53 Dose: 150 mls/hr Potassium Phosphate 45 mm/ (Sodium Chloride) 515 mls @ 62.5 mls/hr IVPB ONCE ONE Stop: 02/18/19 17:45 Insulin Aspart (Novolog Vial Sliding Scale -) 1 vial SQ 0100 [facility]; Protocol Insulin Aspart (Novolog Vial Sliding Scale -) 1 vial SQ ACHS [facility]; Protocol Ondansetron HCl (Zofran Injection) 4 mg IVPUSH Q6H PRN PRN Reason: NAUSEA AND/OR VOMITING - Objective Vital Signs: Vital Signs Temperature 97.5 F L 02/18/19 10:00 Pulse Rate 91 H 02/18/19 10:00 Respiratory Rate 18 02/18/19 10:00 Blood Pressure 148/78 02/18/19 10:00 O2 Sat by Pulse Oximetry (%) 100 02/17/19 21:00 Constitutional: Yes: Well Nourished, No Distress, Calm Eyes: Yes: Conjunctiva Clear, EOM Intact HENT: Yes: Atraumatic, Normocephalic, Other (NG clamped - removed at bedside) Gastrointestinal: Yes: Normal Bowel Sounds (normal to light), Soft. No: Distention, Tenderness (minimal incisional only) Genitourinary: Yes: Weldon Present, Polyuria Extremities: No: Cool, Cyanosis Integumentary: Yes: Incision (midline with raza and 2 open sites), Skin Tear (tiny upper right abdomen - healing with bacitracin/bandaid (new left)). No: Jaundice, Rash Wound/Incision: Yes: Clean/Dry, Well Approximated, [place] Intact, Dressing Removed (x2 - and changed), Unapproximated (2 open sites - clean, early granulation, serous/yellow drainage on packing - removed and portion of 4x4 gauze moistened with saline used for repacking, covered with gauze and tape). No: Dressing Dry and Intact (dressings intact with serous drainage on gauze), Reddened Neurological: Yes: Alert, Oriented. No: Unsteady Gait (ambulates slowly but ok with IV pole) Labs: CBC, BMP 02/18/19 06:00 02/18/19 06:00 CMP Sodium 152 mmol/L (136-145) H 02/18/19 06:00 Potassium 3.9 mmol/L (3.5-5.1) 02/18/19 06:00 Chloride 122 mmol/L (98-107) H 02/18/19 06:00 Carbon Dioxide 16 mmol/L (21-32) L 02/18/19 06:00 Anion Gap 14 MMOL/L (8-16) 02/18/19 06:00 BUN 27.6 mg/dL (7-18) H 02/18/19 06:00 Creatinine 0.8 mg/dL (0.55-1.3) 02/18/19 06:00 Est GFR (CKD-EPI)AfAm 92.87 02/18/19 06:00 Est GFR (CKD-EPI)NonAf 80.13 02/18/19 06:00 POC Glucometer 363 UNITS (80-120) 02/18/19 11:53 Random Glucose 325 mg/dL (74-106) H 02/18/19 06:00 Lactic Acid 1.3 mmol/L (0.4-2.0) 02/17/19 13:45 Calcium 9.7 mg/dL (8.5-10.1) 02/18/19 06:00 Phosphorus 1.1 mg/dL (2.5-4.9) L* 02/18/19 06:00 Magnesium 2.7 mg/dL (1.8-2.4) H 02/18/19 06:00 Total Bilirubin 0.5 mg/dL (0.2-1) 02/18/19 06:00 AST 10 U/L (15-37) L 02/18/19 06:00 ALT 13 U/L (13-61) 02/18/19 06:00 Alkaline Phosphatase 80 U/L (45-117) 02/18/19 06:00 Troponin I < 0.03 ng/ml (0.00-0.05) 02/11/19 19:00 Total Protein 7.4 g/dl (6.4-8.2) 02/18/19 06:00 Albumin 3.0 g/dl (3.4-5.0) L 02/18/19 06:00 Prealbumin 10.5 mg/dl (20-40) L 02/17/19 07:45 Lipase 139 U/L (73-393) 02/11/19 19:00 Na/Cl coming down BUN coming down, Cr down Phos low - being repleted with K Phos CO2 coming up anion gap normalized no lactic acidosis yesterday Problem List - Problems (1) Cecal volvulus Assessment/Plan: POD6 s/p ileocecectomy with lysis of adhesions for cecal volvulus now with flatus, feels close to moving bowels NGT removed bowel sounds increased will start clears for lunch (no soda) continue IV fluids for now trend labs frequently glucose checks AC, HS, and by 1am with SS coverage Weldon for accurate I/Os tylenol first line for pain prn GI/DVT prophylaxis OOB as able - ambulate as able physical therapy IS/pulm toilet midline wounds clean, starting to granulate dressings to be changed/packed daily, cover with small gauze and tape just to hold pt will need VNS on d/c home for wound care, is learning dressing changes as well discussed with JESSICA Dunn Code(s): K56.2 - VOLVULUS (2) DKA, type 2 Assessment/Plan: nephrology on board discussed with Dr. Paredes early DKA resolved, acidosis resolved labs improving ok for clears continue IV fluids for dehydration long-acting insulin given this morning - would resume at HS tonight and reassess in am management per medicine discussed with JESSICA Dunn Code(s): E11.10 - TYPE 2 DIABETES MELLITUS WITH KETOACIDOSIS WITHOUT COMA Qualifiers: Diabetes mellitus long term care pharmacist insulin use: with long term care pharmacist use Diabetes mellitus complication detail: without coma Qualified Code(s): E11.10 - Type 2 diabetes mellitus with ketoacidosis without coma; Z79.4 - shelter (current) use of insulin (3) Hypernatremia Assessment/Plan: improving Code(s): E87.0 - HYPEROSMOLALITY AND HYPERNATREMIA
[2019-02-18 14:21] LABS: ALBUMIN 2.6 g/dl (3.4-5.0); BILIRUBIN,TOTAL 0.4 mg/dL (0.2-1); BLOOD UREA NITROGEN 21.4 mg/dL (7-18); CALCIUM 8.8 mg/dL (8.5-10.1); CREATININE 1.1 mg/dL (0.55-1.3); POTASSIUM 3.4 mmol/L (3.5-5.1); TOT PROT 6.7 g/dl (6.4-8.2)
--- NOTE | 2019-02-18 14:30 | PN ---
Progress Note, Physician Chief Complaint: ambulating around pod with her family. gait steady. she tells me she feels better. denies any abdominal pain, no nausea or vomiting NGT removed by surgery. History of Present Illness: Patient is a 58 year old female who was admitted for 9cm cecal volvulus with obstruction. She was taken to the OR on 02/12 and is now s/p ileocecectomy with lysis of adhesions. She was upgraded to the ICU for hypotension and she is now being monitored on med surg. Overnight she was monitored closely for early DKA. Her anion gap closed overnight and CMP are being done frequently to monitor closely to assure gap remains closed. - Current Medication List Current Medications: Active Medications Acetaminophen (Ofirmev Injection -) 1,000 mg IVPB Q6H PRN PRN Reason: PAIN OR FEVER Last Admin: 02/17/19 19:37 Dose: 1,000 mg Bacitracin (Bacitracin -) 1 applic TP BID [facility] Last Admin: 02/18/19 10:26 Dose: 1 applic Benzocaine/Menthol (Cepacol Lozenge -) 1 each MM PRN PRN PRN Reason: SORE THROAT Last Admin: 02/17/19 07:01 Dose: 1 each Heparin Sodium (Porcine) (Heparin -) 5,000 unit SQ TID [facility] Last Admin: 02/18/19 06:34 Dose: 5,000 unit Dextrose/Sodium Chloride (D5-1/2ns+40 Meq Kcl -) 40 meq in 1,000 mls @ 150 mls/ hr IV ASDIR [facility] Last Admin: 02/18/19 11:52 Dose: 150 mls/hr Potassium Phosphate 45 mm/ (Sodium Chloride) 515 mls @ 62.5 mls/hr IVPB ONCE ONE Stop: 02/18/19 17:45 Last Admin: 02/18/19 11:52 Dose: 62.5 mls/hr Insulin Aspart (Novolog Vial Sliding Scale -) 1 vial SQ 0100 [facility]; Protocol Insulin Aspart (Novolog Vial Sliding Scale -) 1 vial SQ ACHS [facility]; Protocol Insulin Detemir (Levemir Vial) 10 units SQ HS [facility] Ondansetron HCl (Zofran Injection) 4 mg IVPUSH Q6H PRN PRN Reason: NAUSEA AND/OR VOMITING - Objective Vital Signs: Vital Signs Temperature 97.5 F L 02/18/19 10:00 Pulse Rate 91 H 02/18/19 10:00 Respiratory Rate 18 02/18/19 10:00 Blood Pressure 148/78 02/18/19 10:00 O2 Sat by Pulse Oximetry (%) 100 02/17/19 21:00 Constitutional: Yes: Well Nourished, No Distress, Calm Eyes: Yes: WNL HENT: Yes: Atraumatic Neck: Yes: WNL, Supple Cardiovascular: Yes: WNL Respiratory: Yes: Regular Gastrointestinal: Yes: Soft ...Rectal Exam: Yes: Deferred Edema: No Integumentary: Yes: WNL Wound/Incision: Yes: Other (wound changed by surgery) Psychiatric: Yes: Alert, Oriented Labs: CBC, BMP 02/18/19 06:00 02/18/19 13:40 INR, PTT INR 0.94 (0.83-1.09) 02/12/19 00:00 Problem List - Problems (1) Abdominal pain Assessment/Plan: Pt s/p ileocecectomy with lysis of adhesions for cecal volvulus. Her BP is now stable and heart rate in the 90s. NGT removed today by surgery. dressing changed by surgery Abdominal discomfort overall improved and now on clears and she is tolerating it without any nausea or vomiting. Code(s): R10.9 - UNSPECIFIED ABDOMINAL PAIN (2) Bowel obstruction Assessment/Plan: Pain management with Tylenol Zofran as needed for nausea follow up on peritoneal fluid culture blood and urine cultures negative to date Code(s): K56.609 - UNSP INTESTNL OBST, UNSP TO PARTIAL VERSUS COMPLETE OBST Qualifiers: Intestinal obstruction type: volvulus Qualified Code(s): K56.2 - Volvulus (3) Cecal volvulus Assessment/Plan: POD #6 s/p ileocecectomy with lysis of adhesions for cecal volvulus surgery following. notes reviewed. discussed with surgery Code(s): K56.2 - VOLVULUS (4) DKA, type 2 Assessment/Plan: resolved. gap closed. sodium bicarb improved, anion gap closed. on novolog ac/hs and long acting levemir 10 will continue to monitor CMP to assure gap remains closed. Code(s): E11.10 - TYPE 2 DIABETES MELLITUS WITH KETOACIDOSIS WITHOUT COMA Qualifiers: Diabetes mellitus tank terminal gauger insulin use: with fci use Diabetes mellitus complication detail: without coma Qualified Code(s): E11.10 - Type 2 diabetes mellitus with ketoacidosis without coma; Z79.4 - termite treater helper (current) use of insulin (5) Diabetes mellitus, insulin dependent (IDDM), controlled Assessment/Plan: monitor bgms. bgms are stable Code(s): E11.9 - TYPE 2 DIABETES MELLITUS WITHOUT COMPLICATIONS; Z79.4 - PORTABLE SAWMILL OPERATOR (CURRENT) USE OF INSULIN (6) Prophylactic measure Assessment/Plan: fen on d5 1/2 ns with 20 meq @ 150cc/hr monitor electrolytes advance diet per surgery full code Code(s): Z29.9 - ENCOUNTER FOR PROPHYLACTIC MEASURES, UNSPECIFIED Visit type - Emergency Visit Emergency Visit: Yes ED Registration Date: 02/12/19 Care time: The patient presented to the Emergency Department on the above date and was hospitalized for further evaluation of their emergent condition. - New Patient This patient is new to me today: No - Critical Care Critical Care patient: No - Discharge Referral Referred to [facility] No
--- NOTE | 2019-02-18 14:42 | PN ---
Progress Note, Physician History of Present Illness: stable had flatus gi functioning returning - Current Medication List Current Medications: Active Medications Acetaminophen (Ofirmev Injection -) 1,000 mg IVPB Q6H PRN PRN Reason: PAIN OR FEVER Last Admin: 02/17/19 19:37 Dose: 1,000 mg Bacitracin (Bacitracin -) 1 applic TP BID [facility] Last Admin: 02/18/19 10:26 Dose: 1 applic Benzocaine/Menthol (Cepacol Lozenge -) 1 each MM PRN PRN PRN Reason: SORE THROAT Last Admin: 02/17/19 07:01 Dose: 1 each Heparin Sodium (Porcine) (Heparin -) 5,000 unit SQ TID [facility] Last Admin: 02/18/19 06:34 Dose: 5,000 unit Dextrose/Sodium Chloride (D5-1/2ns+40 Meq Kcl -) 40 meq in 1,000 mls @ 150 mls/ hr IV ASDIR [facility] Last Admin: 02/18/19 11:52 Dose: 150 mls/hr Potassium Phosphate 45 mm/ (Sodium Chloride) 515 mls @ 62.5 mls/hr IVPB ONCE ONE Stop: 02/18/19 17:45 Last Admin: 02/18/19 11:52 Dose: 62.5 mls/hr Potassium Chloride (Potassium Chloride 10 Meq Premix Ivpb -) 10 meq in 100 mls @ 100 mls/hr IVPB Q60M [facility] Stop: 02/18/19 16:29 Insulin Aspart (Novolog Vial Sliding Scale -) 1 vial SQ 0100 [facility]; Protocol Insulin Aspart (Novolog Vial Sliding Scale -) 1 vial SQ ACHS [facility]; Protocol Insulin Detemir (Levemir Vial) 10 units SQ HS [facility] Ondansetron HCl (Zofran Injection) 4 mg IVPUSH Q6H PRN PRN Reason: NAUSEA AND/OR VOMITING - Objective Vital Signs: Vital Signs Temperature 97.5 F L 02/18/19 10:00 Pulse Rate 91 H 02/18/19 10:00 Respiratory Rate 18 02/18/19 10:00 Blood Pressure 148/78 02/18/19 10:00 O2 Sat by Pulse Oximetry (%) 100 02/17/19 21:00 Constitutional: Yes: No Distress, Calm Cardiovascular: Yes: Regular Rate and Rhythm Respiratory: Yes: Regular, CTA Bilaterally Gastrointestinal: Yes: Normal Bowel Sounds, Soft Musculoskeletal: Yes: WNL Extremities: Yes: WNL Wound/Incision: Yes: Clean/Dry Neurological: Yes: Alert, Oriented Psychiatric: Yes: Alert, Oriented Labs: CBC, BMP 02/18/19 06:00 02/18/19 13:40 INR, PTT INR 0.94 (0.83-1.09) 02/12/19 00:00 Assessment/Plan Problem List - Problems (1) Cecal volvulus Code(s): K56.2 - VOLVULUS (2) Other complete intestinal obstruction Code(s): K56.691 - OTHER COMPLETE INTESTINAL OBSTRUCTION (3) Generalized abdominal pain Code(s): R10.84 - GENERALIZED ABDOMINAL PAIN (4) Nausea & vomiting Code(s): R11.2 - NAUSEA WITH VOMITING, UNSPECIFIED Qualifiers: Vomiting type: unspecified Vomiting Intractability: non-intractable Qualified Code(s): R11.2 - Nausea with vomiting, unspecified (5) Diabetes mellitus, insulin dependent (IDDM), controlled Code(s): E11.9 - TYPE 2 DIABETES MELLITUS WITHOUT COMPLICATIONS; Z79.4 - SUPERINTENDENT POWER (CURRENT) USE OF 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 female with PMH of IDDM, fibroids s/p myomectomy, liposuction, and appendectomy presented with c/o abd pain/n/v that began 3 days ago Cecal volvulus/SBO s/p ileocecectomy and RAIN POD#0 IDDM Hx Fibroids s/p myomectomy -plan continue current mgmt monitor closely rest as per the team
[2019-02-18] MEDS ORDERED: INSULIN (NOVOLOG) ASPART 100 UNITS/ML 10ML VIAL SQ ONE (14:46)
[2019-02-18] MEDS ORDERED: KCL 10 MEQ IVPB 10 MEQ/100 ML INFUS.BAG IVPB SCH ×2 (16:30→17:15)
[2019-02-18] MEDS: KCL 10 MEQ IVPB 10 MEQ/100 ML INFUS.BAG IVPB SCH (16:38)
[2019-02-18] MEDS ORDERED: PT OWN MED DRAWER 7, Y5N ONE ×2 (17:08→20:10)
[2019-02-18] MEDS: ACETAMINOPHEN 1000 MG/100 ML VIAL (NON FORMULARY) IVPB PRN (20:36)
[2019-02-18] MEDS: INSULIN (LEVEMIR) 100 UNITS/ML UNITS SQ SCH (21:30)
[2019-02-18 22:00] LABS: ALBUMIN 2.5 g/dl (3.4-5.0); BILIRUBIN,TOTAL 0.4 mg/dL (0.2-1); BLOOD UREA NITROGEN 15.1 mg/dL (7-18); CALCIUM 8.6 mg/dL (8.5-10.1); CREATININE 0.6 mg/dL (0.55-1.3); MAGNESIUM 2.1 mg/dL (1.8-2.4); PHOSPHOROUS 1.5 mg/dL (2.5-4.9); POTASSIUM 3.4 mmol/L (3.5-5.1); TOT PROT 6.1 g/dl (6.4-8.2)
[2019-02-19] MEDS: KCL 10 MEQ IVPB 10 MEQ/100 ML INFUS.BAG IVPB SCH ×2 (00:16→02:06)
[2019-02-19] MEDS: INSULIN SLIDING SCALE (NOVOLOG) 1 VIAL SQ SCH ×5 (01:35→21:39)
[2019-02-19] MEDS: HEPARIN NA (PORCINE) 5,000 UNITS/ML 1ML VIAL SQ SCH ×3 (05:49→21:39)
[2019-02-19] MEDS: D5-1/2NS+40 MEQ KCL - 40 MEQ/1,000 ML INFUS.BAG IV SCH ×2 (06:35→12:29)
[2019-02-19] MEDS ORDERED: INSULIN (NOVOLOG) ASPART 100 UNITS/ML 10ML VIAL ONE ×2 (06:40→20:49)
[2019-02-19 08:09] LABS: ALBUMIN 2.4 g/dl (3.4-5.0); BILIRUBIN,TOTAL 0.5 mg/dL (0.2-1); CALCIUM 8.4 mg/dL (8.5-10.1); CREATININE 0.5 mg/dL (0.55-1.3); MAGNESIUM 1.9 mg/dL (1.8-2.4); PHOSPHOROUS 1.8 mg/dL (2.5-4.9); POTASSIUM 3.8 mmol/L (3.5-5.1)
[2019-02-19 08:11] LABS: BASO % 0.5 % (0-2.0); EOS % 2.6 % (0-4.5); HEMATOCRIT 33.5 % (32.4-45.2); HEMOGLOBIN 11.2 GM/dL (10.7-15.3); LYMPH % 22.3 % (8-40); MCHC 33.6 g/dl (32.0-36.0); MEAN CELL VOLUME 101.1 fl (80-96); MEAN PLT VOLUME 6.5 fl (7.5-11.1); MONO % 12.4 % (3.8-10.2); NEUT % 62.2 % (42.8-82.8); PLATELET COUNT 409 K/MM3 (134-434); RBC 3.31 M/mm3 (3.60-5.2); RDW 13.4 % (11.6-15.6)
[2019-02-19] MEDS ORDERED: POTASSIUM PHOSPHATE 45 MM in SODIUM CHLORIDE 500 ML IVPB ONE (10:00)
--- NOTE | 2019-02-19 10:19 | PN ---
Progress Note, Physician History of Present Illness: patient doing well no complaints - Current Medication List Current Medications: Active Medications Acetaminophen (Ofirmev Injection -) 1,000 mg IVPB Q6H PRN PRN Reason: PAIN OR FEVER Last Admin: 02/18/19 20:36 Dose: 1,000 mg Bacitracin (Bacitracin -) 1 applic TP BID [facility] Last Admin: 02/18/19 11:43 Dose: 1 applic Benzocaine/Menthol (Cepacol Lozenge -) 1 each MM PRN PRN PRN Reason: SORE THROAT Last Admin: 02/17/19 07:01 Dose: 1 each Heparin Sodium (Porcine) (Heparin -) 5,000 unit SQ TID [facility] Last Admin: 02/19/19 05:49 Dose: 5,000 unit Dextrose/Sodium Chloride (D5-1/2ns+40 Meq Kcl -) 40 meq in 1,000 mls @ 150 mls/ hr IV ASDIR [facility] Last Admin: 02/19/19 06:35 Dose: 150 mls/hr Potassium Phosphate 45 mm/ (Sodium Chloride) 515 mls @ 62.5 mls/hr IVPB ONCE ONE Stop: 02/19/19 18:14 Insulin Aspart (Novolog Vial Sliding Scale -) 1 vial SQ 0100 [facility]; Protocol Last Admin: 02/19/19 01:35 Dose: Not Given Insulin Aspart (Novolog Vial Sliding Scale -) 1 vial SQ ACHS [facility]; Protocol Last Admin: 02/19/19 06:36 Dose: 6 units Insulin Detemir (Levemir Vial) 10 units SQ HS [facility] Last Admin: 02/18/19 21:30 Dose: 10 units Ondansetron HCl (Zofran Injection) 4 mg IVPUSH Q6H PRN PRN Reason: NAUSEA AND/OR VOMITING - Objective Vital Signs: Vital Signs Temperature 98.3 F 02/19/19 05:56 Pulse Rate 76 02/19/19 05:56 Respiratory Rate 18 02/19/19 05:56 Blood Pressure 133/73 02/19/19 05:56 O2 Sat by Pulse Oximetry (%) 99 02/18/19 10:00 Constitutional: Yes: No Distress, Calm Cardiovascular: Yes: Regular Rate and Rhythm Respiratory: Yes: Regular, CTA Bilaterally Gastrointestinal: Yes: Normal Bowel Sounds, Soft, Other Musculoskeletal: Yes: WNL Extremities: Yes: WNL Wound/Incision: Yes: Clean/Dry Neurological: Yes: Alert, Oriented Psychiatric: Yes: Alert, Oriented Labs: CBC, BMP 02/19/19 07:09 02/19/19 07:09 INR, PTT INR 0.94 (0.83-1.09) 02/12/19 00:00 Assessment/Plan Problem List - Problems (1) Cecal volvulus Code(s): K56.2 - VOLVULUS (2) Other complete intestinal obstruction Code(s): K56.691 - OTHER COMPLETE INTESTINAL OBSTRUCTION (3) Generalized abdominal pain Code(s): R10.84 - GENERALIZED ABDOMINAL PAIN (4) Nausea & vomiting Code(s): R11.2 - NAUSEA WITH VOMITING, UNSPECIFIED Qualifiers: Vomiting type: unspecified Vomiting Intractability: non-intractable Qualified Code(s): R11.2 - Nausea with vomiting, unspecified (5) Diabetes mellitus, insulin dependent (IDDM), controlled Code(s): E11.9 - TYPE 2 DIABETES MELLITUS WITHOUT COMPLICATIONS; Z79.4 - STATION MECHANIC HELPER (CURRENT) USE OF 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 female with PMH of IDDM, fibroids s/p myomectomy, liposuction, and appendectomy presented with c/o abd pain/n/v that began 3 days ago Cecal volvulus/SBO s/p ileocecectomy and RAIN POD#0 IDDM Hx Fibroids s/p myomectomy -plan continue current mgmt nutrition rest as per the team advance diet as tolerated
--- NOTE | 2019-02-19 11:52 | PN ---
Progress Note, Physician History of Present Illness: Pt s/p ileocecectomy with lysis of adhesions for cecal volvulus. Was in ICU for frequent monitoring, early septic response with third-spacing fluids postop, in part likely related to correction of volvulus before resection and systemic distribution of inflammatory mediators from compromised cecum. She has had polyuria and has Weldon with nearly clear urine, very light yellow. She also had one day of early DKA with hypernatremia, dehydration, hyperglycemia, and metabolic acidosis. Nephrology saw her, and she refused ICU transfer. She had insulin, generous fluids with D5, and electrolyte replacement, with labs and clinical status much improved. Back on HS long-acting insulin. She is seen sitting at the end of the pacheco, ambulated back to be examined in bed. Tolerating liquid diet, had fulls this am but did not have much, as she feels bloated still. Passing flatus, no BM yet, but she feels close. She has ambulated several times with PT and her , who is present to learn dressing changes. - Current Medication List Current Medications: Active Medications Acetaminophen (Ofirmev Injection -) 1,000 mg IVPB Q6H PRN PRN Reason: PAIN OR FEVER Last Admin: 02/18/19 20:36 Dose: 1,000 mg Bacitracin (Bacitracin -) 1 applic TP BID [facility] Last Admin: 02/18/19 11:43 Dose: 1 applic Benzocaine/Menthol (Cepacol Lozenge -) 1 each MM PRN PRN PRN Reason: SORE THROAT Last Admin: 02/17/19 07:01 Dose: 1 each Heparin Sodium (Porcine) (Heparin -) 5,000 unit SQ TID [facility] Last Admin: 02/19/19 05:49 Dose: 5,000 unit Potassium Phosphate 45 mm/ (Sodium Chloride) 515 mls @ 62.5 mls/hr IVPB ONCE ONE Stop: 02/19/19 18:14 Dextrose/Sodium Chloride (D5-1/2ns+40 Meq Kcl -) 40 meq in 1,000 mls @ 75 mls/ hr IV ASDIR [facility] Insulin Aspart (Novolog Vial Sliding Scale -) 1 vial SQ 0100 [facility]; Protocol Last Admin: 02/19/19 01:35 Dose: Not Given Insulin Aspart (Novolog Vial Sliding Scale -) 1 vial SQ ACHS [facility]; Protocol Last Admin: 02/19/19 06:36 Dose: 6 units Insulin Detemir (Levemir Vial) 10 units SQ HS [facility] Last Admin: 02/18/19 21:30 Dose: 10 units Ondansetron HCl (Zofran Injection) 4 mg IVPUSH Q6H PRN PRN Reason: NAUSEA AND/OR VOMITING - Objective Vital Signs: Vital Signs Temperature 98.3 F 02/19/19 05:56 Pulse Rate 76 02/19/19 05:56 Respiratory Rate 18 02/19/19 05:56 Blood Pressure 133/73 02/19/19 05:56 O2 Sat by Pulse Oximetry (%) 99 02/18/19 10:00 Constitutional: Yes: Well Nourished, No Distress, Calm Eyes: Yes: Conjunctiva Clear, EOM Intact HENT: Yes: Atraumatic, Normocephalic Gastrointestinal: Yes: Normal Bowel Sounds (present - normal to light), Soft, Distention (some), Tenderness (mild incisional only) Genitourinary: Yes: Weldon Present, Polyuria Extremities: No: Cool, Cyanosis Integumentary: Yes: Incision (midline w/raza and 2 open sites). No: Jaundice , Rash Wound/Incision: Yes: Clean/Dry, Well Approximated, Raza Intact (between wounds), Dressing Dry and Intact (intact with serous drainage x2), Dressing Removed (x2 and repacked with 1/4" ribbon plain (by ), covered with gauze , folded abd and tape), Draining (serous, yellow/mir), Unapproximated (at two sites - clean, early granulation only with some yellow/fat to law, depth to intact fascia) Neurological: Yes: Alert, Oriented. No: Unsteady Gait Labs: CBC, BMP 02/19/19 07:09 02/19/19 07:09 CMP Sodium 141 mmol/L (136-145) 02/19/19 07:09 Potassium 3.8 mmol/L (3.5-5.1) 02/19/19 07:09 Chloride 108 mmol/L (98-107) H 02/19/19 07:09 Carbon Dioxide 28 mmol/L (21-32) 02/19/19 07:09 Anion Gap 5 MMOL/L (8-16) L 02/19/19 07:09 BUN 10.0 mg/dL (7-18) 02/19/19 07:09 Creatinine 0.5 mg/dL (0.55-1.3) L 02/19/19 07:09 Est GFR (CKD-EPI)AfAm 121.92 02/19/19 07:09 Est GFR (CKD-EPI)NonAf 105.20 02/19/19 07:09 POC Glucometer 166 UNITS (80-120) 02/19/19 05:48 Random Glucose 168 mg/dL (74-106) H 02/19/19 07:09 Lactic Acid 1.3 mmol/L (0.4-2.0) 02/17/19 13:45 Calcium 8.4 mg/dL (8.5-10.1) L 02/19/19 07:09 Phosphorus 1.8 mg/dL (2.5-4.9) L 02/19/19 07:09 Magnesium 1.9 mg/dL (1.8-2.4) 02/19/19 07:09 Total Bilirubin 0.5 mg/dL (0.2-1) 02/19/19 07:09 AST 10 U/L (15-37) L 02/19/19 07:09 ALT 11 U/L (13-61) L 02/19/19 07:09 Alkaline Phosphatase 67 U/L (45-117) 02/19/19 07:09 Troponin I < 0.03 ng/ml (0.00-0.05) 02/11/19 19:00 Total Protein 6.0 g/dl (6.4-8.2) L 02/19/19 07:09 Albumin 2.4 g/dl (3.4-5.0) L 02/19/19 07:09 Prealbumin 10.5 mg/dl (20-40) L 02/17/19 07:45 Lipase 139 U/L (73-393) 02/11/19 19:00 Kphos ordered Na/Cl normalized, glucose decreased Problem List - Problems (1) Cecal volvulus Assessment/Plan: POD7 s/p ileocecectomy with lysis of adhesions for cecal volvulus tolerating full liquid diabetic diet, feeling bloated passing flatus, feels close to moving bowels will decrease IV fluids advance to diabetic diet when pt has BM replete lytes, trend labs continue glucose checks AC, HS, and by 1am with SS coverage Weldon for accurate I/Os - likely d/c soon and continue STRICT I/Os tylenol for pain prn GI/DVT prophylaxis OOB/ambulating IS/pulm toilet midline wounds clean with early granulation only dressings to be changed/packed daily, all the way to base, cover with small gauze and tape just to hold pt will need VNS on d/c home for wound care, shown technique - able to demonstrate back discussed with JESSICA Dunn Code(s): K56.2 - VOLVULUS (2) DKA, type 2 Assessment/Plan: nephrology following early DKA resolved, acidosis resolved labs improved advancing diet slowly, await BM decrease IV fluids, encourage po back on HS insulin long-acting and SS coverage prn management per medicine discussed with JESSICA Dunn Code(s): E11.10 - TYPE 2 DIABETES MELLITUS WITH KETOACIDOSIS WITHOUT COMA Qualifiers: Diabetes mellitus oil heaterman insulin use: with oil heaterman use Diabetes mellitus complication detail: without coma Qualified Code(s): E11.10 - Type 2 diabetes mellitus with ketoacidosis without coma; Z79.4 - lobsterman (current) use of insulin (3) Hypernatremia Assessment/Plan: resolved Code(s): E87.0 - HYPEROSMOLALITY AND HYPERNATREMIA
[2019-02-19] MEDS: BACITRACIN 15 GM TUBE TOPICAL OINTMENT TP SCH ×2 (12:07→21:37)
--- NOTE | 2019-02-19 13:53 | PN ---
Progress Note, Physician History of Present Illness: Pt seen and examined at bedside. She is awake and alert. She had a bowel movement. - Current Medication List Current Medications: Active Medications Acetaminophen (Ofirmev Injection -) 1,000 mg IVPB Q6H PRN PRN Reason: PAIN OR FEVER Last Admin: 02/18/19 20:36 Dose: 1,000 mg Bacitracin (Bacitracin -) 1 applic TP BID [facility] Last Admin: 02/19/19 12:07 Dose: Not Given Benzocaine/Menthol (Cepacol Lozenge -) 1 each MM PRN PRN PRN Reason: SORE THROAT Last Admin: 02/17/19 07:01 Dose: 1 each Heparin Sodium (Porcine) (Heparin -) 5,000 unit SQ TID [facility] Last Admin: 02/19/19 13:35 Dose: 5,000 unit Potassium Phosphate 45 mm/ (Sodium Chloride) 515 mls @ 62.5 mls/hr IVPB ONCE ONE Stop: 02/19/19 18:14 Last Admin: 02/19/19 11:58 Dose: 62.5 mls/hr Dextrose/Sodium Chloride (D5-1/2ns+40 Meq Kcl -) 40 meq in 1,000 mls @ 75 mls/ hr IV ASDIR [facility] Last Admin: 02/19/19 12:29 Dose: Not Given Insulin Aspart (Novolog Vial Sliding Scale -) 1 vial SQ 0100 [facility]; Protocol Last Admin: 02/19/19 01:35 Dose: Not Given Insulin Aspart (Novolog Vial Sliding Scale -) 1 vial SQ ACHS [facility]; Protocol Last Admin: 02/19/19 12:16 Dose: 8 units Insulin Detemir (Levemir Vial) 10 units SQ HS [facility] Last Admin: 02/18/19 21:30 Dose: 10 units Ondansetron HCl (Zofran Injection) 4 mg IVPUSH Q6H PRN PRN Reason: NAUSEA AND/OR VOMITING - Objective Vital Signs: Vital Signs Temperature 98.3 F 02/19/19 05:56 Pulse Rate 76 02/19/19 05:56 Respiratory Rate 18 02/19/19 05:56 Blood Pressure 133/73 02/19/19 05:56 O2 Sat by Pulse Oximetry (%) 99 02/18/19 10:00 Constitutional: Yes: Calm Eyes: Yes: Conjunctiva Clear HENT: Yes: Atraumatic Cardiovascular: Yes: S1, S2 Gastrointestinal: Yes: Soft Genitourinary: Yes: Muir Present Musculoskeletal: Yes: WNL Edema: No Neurological: Yes: Oriented Psychiatric: Yes: Oriented Labs: CBC, BMP 02/19/19 07:09 02/19/19 07:09 INR, PTT INR 0.94 (0.83-1.09) 02/12/19 00:00 Problem List - Problems (1) Hypernatremia Code(s): E87.0 - HYPEROSMOLALITY AND HYPERNATREMIA Assessment/Plan Current Medications Generic Name Dose Route Start Last Admin Trade Name Freq PRN Reason Stop Dose Admin Acetaminophen 1,000 mg 02/15/19 14:37 02/18/19 20:36 Ofirmev Injection - IVPB 1,000 mg Q6H PRN Administration PAIN OR FEVER Bacitracin 1 applic 02/15/19 22:00 02/19/19 12:07 Bacitracin - TP Not Given BID [facility] Benzocaine/Menthol 1 each 02/15/19 13:26 02/17/19 07:01 Cepacol Lozenge - MM 1 each PRN PRN Administration SORE THROAT Heparin Sodium (Porcine) 5,000 unit 02/15/19 14:00 02/19/19 13:35 Heparin - SQ 5,000 unit TID [facility] Administration Potassium Phosphate 45 mm/ 515 mls @ 62.5 mls/hr 02/19/19 10:00 02/19/19 11: 58 Sodium Chloride IVPB 02/19/19 18:14 62.5 mls/hr ONCE ONE Administration Dextrose/Sodium Chloride 40 meq in 1,000 mls @ 75 mls/hr 02/19/19 11:37 02/19 12:29 D5-1/2ns+40 Meq Kcl - IV Not Given ASDIR [facility] Insulin Aspart 1 vial 02/19/19 01:00 02/19/19 01:35 Novolog Vial Sliding Scale - SQ Not Given 0100 [facility] Protocol Insulin Aspart 1 vial 02/18/19 16:30 02/19/19 12:16 Novolog Vial Sliding Scale - SQ 8 units ACHS [facility] Administration Protocol Insulin Detemir 10 units 02/18/19 22:00 02/18/19 21:30 Levemir Vial SQ 10 units HS [facility] Administration Ondansetron HCl 4 mg 02/15/19 13:26 Zofran Injection IVPUSH Q6H PRN NAUSEA AND/OR VOMITING IMPRESSION DKA s/p ileocecectomy and lysis of adhesions for ileal volvulus hypernatremia Plan - sodium is improved - agree with decreasing fluids - can stop fluids once on regular diet and encourage po water intake - can d/c muir
--- NOTE | 2019-02-19 14:56 | PATH ---
Surgical Pathology Report Patient Name: MONSE DARNELL [facility]. Rec. #: [id number] /Age/Gender: 1960 (Age: 58) / F Account: [id number] Location: [address] [place] [address] Taken: 02/12/2019 Received: 02/13/2019 Reported: 02/19/2019 Physicians: Tony You M.D. Specimen(s) Received CECUM, APPENDIX AND TERMINIAL ILEUM Clinical History 02/19/2019Cecal volvulus Final Diagnosis CECUM, APPENDIX, AND TERMINAL ILEUM, ILEOCECECTOMY: SEGMENT OF CECUM, MARKEDLY DISTENDED WITH LIQUID FECAL MATERIAL, CONSISTENT WITH VOLVULUS. ILEUM WITH NO PATHOLOGIC FINDINGS. APPENDIX SHOWING FIBROUS OBLITERATION OF LUMEN. Electronically Signed Magda Kate M.D. Gross Description Received in formalin, labeled "cecum, appendix and terminal ileum" is a 16.5 x 10.5 x 9 cm markedly distended segment of cecum, with 4.5 cm portion of ileum and attached appendix measuring 6.2 x 0.8 x 0.5 cm. Upon opening, the cecum contains liquid fecal material. The wall of the cecum appears markedly thinned out with flattening of mucosal folds and areas of purple-red discoloration. The ileum and appendix appear unremarkable. Band Director sections are submitted in six cassettes as follows: 1-cecum; 2-ileum; 3-ileal margin; 4-colonic margin; 5,6-appendix. AE/02/14/2019 ebram/02/14/2019
[2019-02-19 16:32] VITALS: BMI 24.0
--- NOTE | 2019-02-19 19:53 | PN ---
Progress Note, Physician Chief Complaint: ambulating in room, gait steady. she tells me she feels better. denies any abdominal pain, no nausea or vomiting NGT removed yesterday by surgery. passing flatus, had BM today. tolerating diet and now diet advanced to diabetic. denies shortness of breath, denies chest pain. History of Present Illness: Patient is a 58 year old female who was admitted for 9cm cecal volvulus with obstruction. She was taken to the OR on 02/12 and is now s/p ileocecectomy with lysis of adhesions. She was upgraded to the ICU for hypotension and she is now being monitored on med surg. Over the weekend, she was monitored closely for early DKA. Her anion gap is now closed, sodium bicarb stable. Electrolytes are improving. Muir removed today. Discharge once cleared by surgery. - Current Medication List Current Medications: Active Medications Acetaminophen (Ofirmev Injection -) 1,000 mg IVPB Q6H PRN PRN Reason: PAIN OR FEVER Last Admin: 02/18/19 20:36 Dose: 1,000 mg Bacitracin (Bacitracin -) 1 applic TP BID [facility] Last Admin: 02/19/19 12:07 Dose: Not Given Benzocaine/Menthol (Cepacol Lozenge -) 1 each MM PRN PRN PRN Reason: SORE THROAT Last Admin: 02/17/19 07:01 Dose: 1 each Heparin Sodium (Porcine) (Heparin -) 5,000 unit SQ TID [facility] Last Admin: 02/19/19 13:35 Dose: 5,000 unit Dextrose/Sodium Chloride (D5-1/2ns+40 Meq Kcl -) 40 meq in 1,000 mls @ 75 mls/ hr IV ASDIR [facility] Last Admin: 02/19/19 12:29 Dose: Not Given Insulin Aspart (Novolog Vial Sliding Scale -) 1 vial SQ 0100 [facility]; Protocol Last Admin: 02/19/19 01:35 Dose: Not Given Insulin Aspart (Novolog Vial Sliding Scale -) 1 vial SQ ACHS [facility]; Protocol Last Admin: 02/19/19 17:52 Dose: 8 units Insulin Detemir (Levemir Vial) 10 units SQ HS [facility] Last Admin: 02/18/19 21:30 Dose: 10 units Ondansetron HCl (Zofran Injection) 4 mg IVPUSH Q6H PRN PRN Reason: NAUSEA AND/OR VOMITING - Objective Vital Signs: Vital Signs Temperature 98.2 F 02/19/19 18:07 Pulse Rate 84 02/19/19 18:07 Respiratory Rate 20 02/19/19 18:07 Blood Pressure 122/66 02/19/19 18:07 O2 Sat by Pulse Oximetry (%) 99 02/19/19 09:00 Constitutional: Yes: No Distress, Calm Eyes: Yes: WNL HENT: Yes: Pharyngeal Erythema Neck: Yes: Supple Cardiovascular: Yes: Regular Rate and Rhythm Respiratory: Yes: Diminished Gastrointestinal: Yes: Normal Bowel Sounds, Soft ...Rectal Exam: Yes: Deferred Genitourinary: Yes: Other (muir d/c) Breast(s): Yes: WNL Musculoskeletal: Yes: WNL Extremities: Yes: WNL Edema: No Integumentary: Yes: WNL Neurological: Yes: Alert, Oriented Labs: CBC, BMP 02/19/19 07:09 02/19/19 07:09 INR, PTT INR 0.94 (0.83-1.09) 02/12/19 00:00 Problem List - Problems (1) DKA, type 2 Assessment/Plan: resolved. gap closed. sodium bicarb improved, anion gap closed. on novolog ac/hs and long acting levemir 10 at hs with close monitoring of bgms ac/hs and again at 0100. 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 notes reviewed. discussed with surgery Code(s): K56.2 - VOLVULUS (3) Abdominal pain Assessment/Plan: Pt s/p ileocecectomy with lysis of adhesions for cecal volvulus. Her BP is now stable and heart rate in the 90s. NGT removed 02/18 by surgery. dressing changed by surgery. Had a BM today and tolerating diet advancement. for a diabetic diet today, fluids decreased. muir removed today. Code(s): R10.9 - UNSPECIFIED ABDOMINAL PAIN (4) Diabetes mellitus, insulin dependent (IDDM), controlled Assessment/Plan: monitor bgms. bgms are more stable Code(s): E11.9 - TYPE 2 DIABETES MELLITUS WITHOUT COMPLICATIONS; Z79.4 - SENIOR LIVING (CURRENT) USE OF INSULIN (5) Bowel obstruction Assessment/Plan: Pain management with Tylenol Zofran as needed for nausea blood and urine cultures negative to date Code(s): K56.609 - UNSP INTESTNL OBST, UNSP TO PARTIAL VERSUS COMPLETE OBST Qualifiers: Intestinal obstruction type: volvulus Qualified Code(s): K56.2 - Volvulus (6) Hypernatremia Assessment/Plan: now within normal values Code(s): E87.0 - HYPEROSMOLALITY AND HYPERNATREMIA (7) Prophylactic measure Assessment/Plan: fen on d5 1/2 ns with 20 meq @ 75cc/hr until fully tolerating meals. monitor electrolytes advance diet per surgery full code Code(s): Z29.9 - ENCOUNTER FOR PROPHYLACTIC MEASURES, UNSPECIFIED Visit type - Emergency Visit Emergency Visit: Yes ED Registration Date: 02/12/19 Care time: The patient presented to the Emergency Department on the above date and was hospitalized for further evaluation of their emergent condition. - New Patient This patient is new to me today: No - Critical Care Critical Care patient: No - Discharge Referral Referred to [facility] Med [facility] No
[2019-02-19] MEDS: INSULIN (LEVEMIR) 100 UNITS/ML UNITS SQ SCH (21:38)
[2019-02-20] MEDS: INSULIN SLIDING SCALE (NOVOLOG) 1 VIAL SQ SCH ×3 (02:19→12:09)
[2019-02-20] MEDS: D5-1/2NS+40 MEQ KCL - 40 MEQ/1,000 ML INFUS.BAG IV SCH ×2 (06:23→12:10)
[2019-02-20] MEDS: HEPARIN NA (PORCINE) 5,000 UNITS/ML 1ML VIAL SQ SCH ×2 (06:23→14:51)
[2019-02-20 07:55] LABS: BASO % 0.6 % (0-2.0); EOS % 3.3 % (0-4.5); HEMATOCRIT 30.7 % (32.4-45.2); HEMOGLOBIN 10.4 GM/dL (10.7-15.3); LYMPH % 23.6 % (8-40); MCH 33.9 pg (25.7-33.7); MEAN CELL VOLUME 99.6 fl (80-96); MEAN PLT VOLUME 6.5 fl (7.5-11.1); MONO % 11.4 % (3.8-10.2); NEUT % 61.1 % (42.8-82.8); PLATELET COUNT 363 K/MM3 (134-434); RBC 3.08 M/mm3 (3.60-5.2); RDW 12.9 % (11.6-15.6); WHITE BLOOD COUNT 8.3 K/mm3 (4.0-10.0)
--- NOTE | 2019-02-20 08:04 | PN ---
Progress Note, Physician Chief Complaint: Chief Complaint: ambulating in room, gait steady. she tells me she feels better. denies any abdominal pain, no nausea or vomiting NGT removed yesterday by surgery. passing flatus, had BM today. tolerating diet and now diet advanced to diabetic. denies shortness of breath, denies chest pain. History of Present Illness: History of Present Illness: Patient is a 58 year old female who was admitted for 9cm cecal volvulus with obstruction. She was taken to the OR on 02/12 and is now s/p ileocecectomy with lysis of adhesions. She was upgraded to the ICU for hypotension and she is now being monitored on med surg. Over the weekend, she was monitored closely for early DKA. Her anion gap is now closed, sodium bicarb stable. Electrolytes are improving. Weldon removed today. Discharge once cleared by surgery. - Current Medication List Current Medications: Active Medications Acetaminophen (Ofirmev Injection -) 1,000 mg IVPB Q6H PRN PRN Reason: PAIN OR FEVER Last Admin: 02/18/19 20:36 Dose: 1,000 mg Bacitracin (Bacitracin -) 1 applic TP BID [facility] Last Admin: 02/19/19 21:37 Dose: Not Given Benzocaine/Menthol (Cepacol Lozenge -) 1 each MM PRN PRN PRN Reason: SORE THROAT Last Admin: 02/17/19 07:01 Dose: 1 each Heparin Sodium (Porcine) (Heparin -) 5,000 unit SQ TID [facility] Last Admin: 02/20/19 06:23 Dose: 5,000 unit Dextrose/Sodium Chloride (D5-1/2ns+40 Meq Kcl -) 40 meq in 1,000 mls @ 75 mls/ hr IV ASDIR [facility] Last Admin: 02/20/19 06:23 Dose: 75 mls/hr Insulin Aspart (Novolog Vial Sliding Scale -) 1 vial SQ 0100 [facility]; Protocol Last Admin: 02/20/19 02:19 Dose: 4 units Insulin Aspart (Novolog Vial Sliding Scale -) 1 vial SQ ACHS [facility]; Protocol Last Admin: 02/20/19 06:24 Dose: Not Given Insulin Detemir (Levemir Vial) 10 units SQ HS [facility] Last Admin: 02/19/19 21:38 Dose: 10 units Ondansetron HCl (Zofran Injection) 4 mg IVPUSH Q6H PRN PRN Reason: NAUSEA AND/OR VOMITING - Objective Vital Signs: Vital Signs Temperature 98.2 F 02/20/19 06:00 Pulse Rate 84 02/20/19 06:00 Respiratory Rate 18 02/20/19 06:00 Blood Pressure 104/58 L 02/20/19 06:00 O2 Sat by Pulse Oximetry (%) 98 02/19/19 21:00 Labs: INR, PTT INR 0.94 (0.83-1.09) 02/12/19 00:00
[2019-02-20 08:28] LABS: ALBUMIN 2.3 g/dl (3.4-5.0); BILIRUBIN,TOTAL 0.4 mg/dL (0.2-1); BLOOD UREA NITROGEN 6.8 mg/dL (7-18); CALCIUM 8.7 mg/dL (8.5-10.1); CREATININE 0.4 mg/dL (0.55-1.3); MAGNESIUM 2.1 mg/dL (1.8-2.4); PHOSPHOROUS 2.6 mg/dL (2.5-4.9); POTASSIUM 3.8 mmol/L (3.5-5.1); TOT PROT 5.6 g/dl (6.4-8.2)
[2019-02-20 10:06] VITALS: BP 111/70; PULSE 86; TEMP 98.4
[2019-02-20] MEDS: BACITRACIN 15 GM TUBE TOPICAL OINTMENT TP SCH (11:34)
--- NOTE | 2019-02-20 12:37 | PN ---
Progress Note, Physician History of Present Illness: Pt seen and examined at bedside. She is awake and alert. She was able to void. - Current Medication List Current Medications: Active Medications Acetaminophen (Ofirmev Injection -) 1,000 mg IVPB Q6H PRN PRN Reason: PAIN OR FEVER Last Admin: 02/18/19 20:36 Dose: 1,000 mg Bacitracin (Bacitracin -) 1 applic TP BID [facility] Last Admin: 02/20/19 11:34 Dose: Not Given Benzocaine/Menthol (Cepacol Lozenge -) 1 each MM PRN PRN PRN Reason: SORE THROAT Last Admin: 02/17/19 07:01 Dose: 1 each Heparin Sodium (Porcine) (Heparin -) 5,000 unit SQ TID [facility] Last Admin: 02/20/19 06:23 Dose: 5,000 unit Insulin Aspart (Novolog Vial Sliding Scale -) 1 vial SQ 0100 [facility]; Protocol Last Admin: 02/20/19 02:19 Dose: 4 units Insulin Aspart (Novolog Vial Sliding Scale -) 1 vial SQ ACHS [facility]; Protocol Last Admin: 02/20/19 12:09 Dose: 14 units Insulin Detemir (Levemir Vial) 10 units SQ HS [facility] Last Admin: 02/19/19 21:38 Dose: 10 units Ondansetron HCl (Zofran Injection) 4 mg IVPUSH Q6H PRN PRN Reason: NAUSEA AND/OR VOMITING - Objective Vital Signs: Vital Signs Temperature 98.4 F 02/20/19 10:00 Pulse Rate 86 02/20/19 10:00 Respiratory Rate 18 02/20/19 10:00 Blood Pressure 111/70 02/20/19 10:00 O2 Sat by Pulse Oximetry (%) 98 02/19/19 21:00 Constitutional: Yes: Calm Eyes: Yes: Conjunctiva Clear HENT: Yes: Atraumatic Neck: Yes: Supple Cardiovascular: Yes: S1, S2 Respiratory: Yes: CTA Bilaterally Gastrointestinal: Yes: Soft Genitourinary: Yes: WNL Extremities: Yes: WNL Edema: No Neurological: Yes: Oriented Psychiatric: Yes: Oriented Labs: CBC, BMP 02/20/19 07:16 02/20/19 07:16 INR, PTT INR 0.94 (0.83-1.09) 02/12/19 00:00 Problem List - Problems (1) Hypernatremia Code(s): E87.0 - HYPEROSMOLALITY AND HYPERNATREMIA Assessment/Plan Current Medications Generic Name Dose Route Start Last Admin Trade Name Morris PRN Reason Stop Dose Admin Acetaminophen 1,000 mg 02/15/19 14:37 02/18/19 20:36 Ofirmev Injection - IVPB 1,000 mg Q6H PRN Administration PAIN OR FEVER Bacitracin 1 applic 02/15/19 22:00 02/20/19 11:34 Bacitracin - TP Not Given BID [facility] Benzocaine/Menthol 1 each 02/15/19 13:26 02/17/19 07:01 Cepacol Lozenge - MM 1 each PRN PRN Administration SORE THROAT Heparin Sodium (Porcine) 5,000 unit 02/15/19 14:00 02/20/19 06:23 Heparin - SQ 5,000 unit TID [facility] Administration Insulin Aspart 1 vial 02/19/19 01:00 02/20/19 02:19 Novolog Vial Sliding Scale - SQ 4 units 0100 [facility] Administration Protocol Insulin Aspart 1 vial 02/18/19 16:30 02/20/19 12:09 Novolog Vial Sliding Scale - SQ 14 units ACHS [facility] Administration Protocol Insulin Detemir 10 units 02/18/19 22:00 02/19/19 21:38 Levemir Vial SQ 10 units HS [facility] Administration Ondansetron HCl 4 mg 02/15/19 13:26 Zofran Injection IVPUSH Q6H PRN NAUSEA AND/OR VOMITING IMPRESSION DKA s/p ileocecectomy and lysis of adhesions for ileal volvulus hypernatremia Plan - sodium is normal - can stop fluids - pt tolerating diet - pt did void after muir removed - discussed with medical team - will follow PRN
--- NOTE | 2019-02-20 12:43 | PN ---
Progress Note, Physician History of Present Illness: Pt s/p ileocecectomy with lysis of adhesions for cecal volvulus. She had an early septic response which resolved quickly in ICU, and had one day of early DKA with hypernatremia, dehydration, hyperglycemia, and metabolic acidosis. Nephrology saw her as well and she got insulin, generous fluids with D5, and electrolyte replacement, with labs and clinical status much improved. Back on HS long-acting insulin. Weldon was removed and she is voiding well. She is passing flatus and having BMs. Tolerating diabetic diet since dinner last night. Feeling better, ambulating. She is seen and examined in her room with her , who is able to demonstrate dressing changes. VNS is arranged to start tomorrow per CM. - Current Medication List Current Medications: Active Medications Acetaminophen (Ofirmev Injection -) 1,000 mg IVPB Q6H PRN PRN Reason: PAIN OR FEVER Last Admin: 02/18/19 20:36 Dose: 1,000 mg Bacitracin (Bacitracin -) 1 applic TP BID [facility] Last Admin: 02/20/19 11:34 Dose: Not Given Benzocaine/Menthol (Cepacol Lozenge -) 1 each MM PRN PRN PRN Reason: SORE THROAT Last Admin: 02/17/19 07:01 Dose: 1 each Heparin Sodium (Porcine) (Heparin -) 5,000 unit SQ TID [facility] Last Admin: 02/20/19 06:23 Dose: 5,000 unit Insulin Aspart (Novolog Vial Sliding Scale -) 1 vial SQ 0100 [facility]; Protocol Last Admin: 02/20/19 02:19 Dose: 4 units Insulin Aspart (Novolog Vial Sliding Scale -) 1 vial SQ ACHS [facility]; Protocol Last Admin: 02/20/19 12:09 Dose: 14 units Insulin Detemir (Levemir Vial) 10 units SQ HS [facility] Last Admin: 02/19/19 21:38 Dose: 10 units Ondansetron HCl (Zofran Injection) 4 mg IVPUSH Q6H PRN PRN Reason: NAUSEA AND/OR VOMITING - Objective Vital Signs: Vital Signs Temperature 98.4 F 02/20/19 10:00 Pulse Rate 86 02/20/19 10:00 Respiratory Rate 18 02/20/19 10:00 Blood Pressure 111/70 02/20/19 10:00 O2 Sat by Pulse Oximetry (%) 98 02/19/19 21:00 Constitutional: Yes: Well Nourished, No Distress, Calm Eyes: Yes: Conjunctiva Clear, EOM Intact HENT: Yes: Atraumatic, Normocephalic Gastrointestinal: Yes: Normal Bowel Sounds, Soft. No: Distention, Tenderness ( minimal if any incisional) Genitourinary: No: Weldon Present, Hematuria Extremities: No: Cool, Cyanosis Integumentary: Yes: Incision (midline w/raza and 2 open sites). No: Jaundice , Rash Wound/Incision: Yes: Clean/Dry, Well Approximated (between wounds), Raza Intact, Dressing Dry and Intact (intact, with serous - yellow/mir drainage), Dressing Removed (and changed - repacked with saline-dampened gauze (2x2 x2 in upper site, 4x4 single in lower site), covered with gauze, ABD and tape), Unapproximated (2 sites - clean, slight/early granulation only, still with serous drainage, deep to intact fascia) Neurological: Yes: Alert, Oriented. No: Unsteady Gait Labs: CBC, BMP 02/20/19 07:16 02/20/19 07:16 CMP Sodium 140 mmol/L (136-145) 02/20/19 07:16 Potassium 3.8 mmol/L (3.5-5.1) 02/20/19 07:16 Chloride 104 mmol/L (98-107) 02/20/19 07:16 Carbon Dioxide 32 mmol/L (21-32) 02/20/19 07:16 Anion Gap 5 MMOL/L (8-16) L 02/20/19 07:16 BUN 6.8 mg/dL (7-18) L 02/20/19 07:16 Creatinine 0.4 mg/dL (0.55-1.3) L 02/20/19 07:16 Est GFR (CKD-EPI)AfAm 131.21 02/20/19 07:16 Est GFR (CKD-EPI)NonAf 113.21 02/20/19 07:16 POC Glucometer 437 UNITS (80-120) 02/20/19 11:14 Random Glucose 161 mg/dL (74-106) H 02/20/19 07:16 Lactic Acid 1.3 mmol/L (0.4-2.0) 02/17/19 13:45 Calcium 8.7 mg/dL (8.5-10.1) 02/20/19 07:16 Phosphorus 2.6 mg/dL (2.5-4.9) 02/20/19 07:16 Magnesium 2.1 mg/dL (1.8-2.4) 02/20/19 07:16 Total Bilirubin 0.4 mg/dL (0.2-1) 02/20/19 07:16 AST 9 U/L (15-37) L 02/20/19 07:16 ALT 11 U/L (13-61) L 02/20/19 07:16 Alkaline Phosphatase 65 U/L (45-117) 02/20/19 07:16 Troponin I < 0.03 ng/ml (0.00-0.05) 02/11/19 19:00 Total Protein 5.6 g/dl (6.4-8.2) L 02/20/19 07:16 Albumin 2.3 g/dl (3.4-5.0) L 02/20/19 07:16 Prealbumin 10.5 mg/dl (20-40) L 02/17/19 07:45 Lipase 139 U/L (73-393) 02/11/19 19:00 Problem List - Problems (1) Cecal volvulus Assessment/Plan: POD8 s/p ileocecectomy with lysis of adhesions for cecal volvulus tolerating diabetic diet, moving bowels stop IV fluids Weldon out tylenol for pain prn GI/DVT prophylaxis OOB/ambulating IS/pulm toilet midline wounds clean with early granulation only dressings to be changed/packed daily (to BID, if dressings get very wet), all the way to base, cover with small gauze, ABD as needed and tape to hold may use saline-damp gauze in each site - lower wound fits one 4x4, upper fits smaller piece VNS arranged for wound care, shown technique - able to demonstrate back discussed with JESSICA Kirby Code(s): K56.2 - VOLVULUS (2) DKA, type 2 Assessment/Plan: resolved Code(s): E11.10 - TYPE 2 DIABETES MELLITUS WITH KETOACIDOSIS WITHOUT COMA Qualifiers: Qualified Code(s): E11.10 - Type 2 diabetes mellitus with ketoacidosis without coma; Z79.4 - manager intermediate (current) use of insulin (3) Hypernatremia Assessment/Plan: resolved Code(s): E87.0 - HYPEROSMOLALITY AND HYPERNATREMIA
--- NOTE | 2019-02-20 12:47 | PN ---
Progress Note, Physician History of Present Illness: stable no new issues - Current Medication List Current Medications: Active Medications Acetaminophen (Ofirmev Injection -) 1,000 mg IVPB Q6H PRN PRN Reason: PAIN OR FEVER Last Admin: 02/18/19 20:36 Dose: 1,000 mg Bacitracin (Bacitracin -) 1 applic TP BID [facility] Last Admin: 02/20/19 11:34 Dose: Not Given Benzocaine/Menthol (Cepacol Lozenge -) 1 each MM PRN PRN PRN Reason: SORE THROAT Last Admin: 02/17/19 07:01 Dose: 1 each Heparin Sodium (Porcine) (Heparin -) 5,000 unit SQ TID [facility] Last Admin: 02/20/19 06:23 Dose: 5,000 unit Insulin Aspart (Novolog Vial Sliding Scale -) 1 vial SQ 0100 [facility]; Protocol Last Admin: 02/20/19 02:19 Dose: 4 units Insulin Aspart (Novolog Vial Sliding Scale -) 1 vial SQ ACHS [facility]; Protocol Last Admin: 02/20/19 12:09 Dose: 14 units Insulin Detemir (Levemir Vial) 10 units SQ HS [facility] Last Admin: 02/19/19 21:38 Dose: 10 units Ondansetron HCl (Zofran Injection) 4 mg IVPUSH Q6H PRN PRN Reason: NAUSEA AND/OR VOMITING - Objective Vital Signs: Vital Signs Temperature 98.4 F 02/20/19 10:00 Pulse Rate 86 02/20/19 10:00 Respiratory Rate 18 02/20/19 10:00 Blood Pressure 111/70 02/20/19 10:00 O2 Sat by Pulse Oximetry (%) 98 02/19/19 21:00 Constitutional: Yes: No Distress, Calm Cardiovascular: Yes: S1, S2 Musculoskeletal: Yes: WNL Extremities: Yes: WNL Neurological: Yes: Alert, Oriented Labs: CBC, BMP 02/20/19 07:16 02/20/19 07:16 INR, PTT INR 0.94 (0.83-1.09) 02/12/19 00:00 Assessment/Plan Problem List - Problems (1) Cecal volvulus Code(s): K56.2 - VOLVULUS (2) Other complete intestinal obstruction Code(s): K56.691 - OTHER COMPLETE INTESTINAL OBSTRUCTION (3) Generalized abdominal pain Code(s): R10.84 - GENERALIZED ABDOMINAL PAIN (4) Nausea & vomiting Code(s): R11.2 - NAUSEA WITH VOMITING, UNSPECIFIED Qualifiers: Vomiting type: unspecified Vomiting Intractability: non-intractable Qualified Code(s): R11.2 - Nausea with vomiting, unspecified (5) Diabetes mellitus, insulin dependent (IDDM), controlled Code(s): E11.9 - TYPE 2 DIABETES MELLITUS WITHOUT COMPLICATIONS; Z79.4 - REFRACTORY SPECIALIST (CURRENT) USE OF 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 female with PMH of IDDM, fibroids s/p myomectomy, liposuction, and appendectomy presented with c/o abd pain/n/v that began 3 days ago Cecal volvulus/SBO s/p ileocecectomy and RAIN POD#0 IDDM Hx Fibroids s/p myomectomy -plan continue current mgmt nutrition rest as per the team
--- NOTE | 2019-02-20 13:06 | DS ---
Physical Exam: SUBJECTIVE: Patient seen and examined Progress Note, Physician Chief Complaint: ambulating in room, gait steady. she tells me she feels better. denies any abdominal pain, no nausea or vomiting NGT removed yesterday by surgery. passing flatus, had BM today. tolerating diet and now diet advanced to diabetic. denies shortness of breath, denies chest pain. History of Present Illness: Patient is a 58 year old female who was admitted for 9cm cecal volvulus with obstruction. She was taken to the OR on 02/12 and is now s/p ileocecectomy with lysis of adhesions. She was upgraded to the ICU for hypotension and she is now being monitored on med surg. Over the weekend, she was monitored closely for early DKA. Her anion gap is now closed, sodium bicarb stable. Electrolytes are improving. Muir removed today. Discharge once cleared by surgery. - Current Medication List Current Medications: Active Medications Acetaminophen (Ofirmev Injection -) 1,000 mg IVPB Q6H PRN PRN Reason: PAIN OR FEVER Last Admin: 02/18/19 20:36 Dose: 1,000 mg Bacitracin (Bacitracin -) 1 applic TP BID [facility] Last Admin: 02/19/19 12:07 Dose: Not Given Benzocaine/Menthol (Cepacol Lozenge -) 1 each MM PRN PRN PRN Reason: SORE THROAT Last Admin: 02/17/19 07:01 Dose: 1 each Heparin Sodium (Porcine) (Heparin -) 5,000 unit SQ TID [facility] Last Admin: 02/19/19 13:35 Dose: 5,000 unit Dextrose/Sodium Chloride (D5-1/2ns+40 Meq Kcl -) 40 meq in 1,000 mls @ 75 mls/ hr IV ASDIR [facility] Last Admin: 02/19/19 12:29 Dose: Not Given Insulin Aspart (Novolog Vial Sliding Scale -) 1 vial SQ 0100 [facility]; Protocol Last Admin: 02/19/19 01:35 Dose: Not Given Insulin Aspart (Novolog Vial Sliding Scale -) 1 vial SQ ACHS [facility]; Protocol Last Admin: 02/19/19 17:52 Dose: 8 units Insulin Detemir (Levemir Vial) 10 units SQ HS [facility] Last Admin: 02/18/19 21:30 Dose: 10 units Ondansetron HCl (Zofran Injection) 4 mg IVPUSH Q6H PRN PRN Reason: NAUSEA AND/OR VOMITING - Objective Vital Signs: Vital Signs Temperature 98.2 F 02/19/19 18:07 Pulse Rate 84 02/19/19 18:07 Respiratory Rate 20 02/19/19 18:07 Blood Pressure 122/66 02/19/19 18:07 O2 Sat by Pulse Oximetry (%) 99 02/19/19 09:00 Constitutional: Yes: No Distress, Calm Eyes: Yes: WNL HENT: Yes: Pharyngeal Erythema Neck: Yes: Supple Cardiovascular: Yes: Regular Rate and Rhythm Respiratory: Yes: Diminished Gastrointestinal: Yes: Normal Bowel Sounds, Soft ...Rectal Exam: Yes: Deferred Genitourinary: Yes: Other (muir d/c) Breast(s): Yes: WNL Musculoskeletal: Yes: WNL Extremities: Yes: WNL Edema: No Integumentary: Yes: WNL Neurological: Yes: Alert, Oriented Labs: CBC, BMP 02/19/19 07:09 02/19/19 07:09 INR, PTT INR 0.94 (0.83-1.09) 02/12/19 00:00 LABS Laboratory Results - last 24 hr 02/19/19 02/19/19 02/20/19 17:33 21:29 01:56 WBC RBC Hgb Hct MCV MCH MCHC RDW Plt Count MPV Absolute Neuts (auto) Neutrophils % Lymphocytes % Monocytes % Eosinophils % Basophils % Nucleated RBC % Sodium Potassium Chloride Carbon Dioxide Anion Gap BUN Creatinine Est GFR (CKD-EPI)AfAm Est GFR (CKD-EPI)NonAf POC Glucometer 226 192 220 Random Glucose Calcium Phosphorus Magnesium Total Bilirubin AST ALT Alkaline Phosphatase Total Protein Albumin 02/20/19 02/20/19 02/20/19 04:33 06:22 07:16 WBC 8.3 RBC 3.08 L Hgb 10.4 L Hct 30.7 L MCV 99.6 H MCH 33.9 H MCHC 34.0 RDW 12.9 Plt Count 363 MPV 6.5 L Absolute Neuts (auto) 5.1 Neutrophils % 61.1 Lymphocytes % 23.6 Monocytes % 11.4 H Eosinophils % 3.3 Basophils % 0.6 Nucleated RBC % 0 Sodium Potassium Chloride Carbon Dioxide Anion Gap BUN Creatinine Est GFR (CKD-EPI)AfAm Est GFR (CKD-EPI)NonAf POC Glucometer 127 148 Random Glucose Calcium Phosphorus Magnesium Total Bilirubin AST ALT Alkaline Phosphatase Total Protein Albumin 02/20/19 02/20/19 07:16 11:14 WBC RBC Hgb Hct MCV MCH MCHC RDW Plt Count MPV Absolute Neuts (auto) Neutrophils % Lymphocytes % Monocytes % Eosinophils % Basophils % Nucleated RBC % Sodium 140 Potassium 3.8 Chloride 104 Carbon Dioxide 32 Anion Gap 5 L BUN 6.8 L Creatinine 0.4 L Est GFR (CKD-EPI)AfAm 131.21 Est GFR (CKD-EPI)NonAf 113.21 POC Glucometer 437 Random Glucose 161 H Calcium 8.7 Phosphorus 2.6 Magnesium 2.1 Total Bilirubin 0.4 AST 9 L ALT 11 L Alkaline Phosphatase 65 Total Protein 5.6 L Albumin 2.3 L HOSPITAL COURSE: Date of Admission:02/12/19 Date of Discharge: 02/20/19 Problem List - Problems (1) DKA, type 2 Assessment/Plan: resolved. sodium bicarb improved, anion gap closed. on novolog ac/hs and long acting levemir 10 at hs with close monitoring of bgms ac/hs. Pt to follow with home tip stitcher Code(s): E11.10 - TYPE 2 DIABETES MELLITUS WITH KETOACIDOSIS WITHOUT COMA Qualifiers: Diabetes mellitus fpc insulin use: with predatory animal exterminator use Diabetes mellitus complication detail: without coma Qualified Code(s): E11.10 - Type 2 diabetes mellitus with ketoacidosis without coma; Z79.4 - predatory animal exterminator (current) use of insulin (2) Cecal volvulus Assessment/Plan: POD #8 s/p ileocecectomy with lysis of adhesions for cecal volvulus Cleared by Dr You to be discharged home. Code(s): K56.2 - VOLVULUS (3) Abdominal pain Assessment/Plan: Pt s/p ileocecectomy with lysis of adhesions for cecal volvulus. Her BP is now stable and heart rate in the 90s. Home instructions for dressing changes Having BM and tolerating diet advancement. Code(s): R10.9 - UNSPECIFIED ABDOMINAL PAIN (4) Diabetes mellitus, insulin dependent (IDDM), controlled Assessment/Plan: bgms are more stable Code(s): E11.9 - TYPE 2 DIABETES MELLITUS WITHOUT COMPLICATIONS; Z79.4 - SHELTER (CURRENT) USE OF INSULIN (5) Bowel obstruction Assessment/Plan: Pain management with Tylenol blood and urine cultures negative to date Code(s): K56.609 - UNSP INTESTNL OBST, UNSP TO PARTIAL VERSUS COMPLETE OBST Qualifiers: Intestinal obstruction type: volvulus Qualified Code(s): K56.2 - Volvulus (6) Hypernatremia Assessment/Plan: now within normal values Code(s): E87.0 - HYPEROSMOLALITY AND HYPERNATREMIA Medically cleared for discharge home to VNS in place Minutes to complete discharge: 35 Discharge Summary Reason For Visit: CECEAL VOLVOLUS Current Active Problems Abdominal pain (Acute) Bowel obstruction (Acute) Cecal volvulus (Acute) DKA, type 2 (Acute) Diabetes mellitus, insulin dependent (IDDM), controlled (Acute) Generalized abdominal pain (Acute) Hypernatremia (Acute) Nausea & vomiting (Acute) Other complete intestinal obstruction (Acute) Prophylactic measure (Acute) Hospital Course: HOSPITAL COURSE: Date of Admission:02/12/19 Date of Discharge: 02/20/19 Problem List - Problems (1) DKA, type 2 Assessment/Plan: resolved. sodium bicarb improved, anion gap closed. on novolog ac/hs and long acting levemir 10 at hs with close monitoring of bgms ac/hs. Pt to follow with home tip stitcher Code(s): E11.10 - TYPE 2 DIABETES MELLITUS WITH KETOACIDOSIS WITHOUT COMA Qualifiers: Diabetes mellitus fpc insulin use: with predatory animal exterminator use Diabetes mellitus complication detail: without coma Qualified Code(s): E11.10 - Type 2 diabetes mellitus with ketoacidosis without coma; Z79.4 - [facility] (current) use of insulin (2) Cecal volvulus Assessment/Plan: POD #8 s/p ileocecectomy with lysis of adhesions for cecal volvulus Cleared by Dr You to be discharged home. Code(s): K56.2 - VOLVULUS (3) Abdominal pain Assessment/Plan: Pt s/p ileocecectomy with lysis of adhesions for cecal volvulus. Her BP is now stable and heart rate in the 90s. Home instructions for dressing changes Having BM and tolerating diet advancement. Code(s): R10.9 - UNSPECIFIED ABDOMINAL PAIN (4) Diabetes mellitus, insulin dependent (IDDM), controlled Assessment/Plan: bgms are more stable Code(s): E11.9 - TYPE 2 DIABETES MELLITUS WITHOUT COMPLICATIONS; Z79.4 - SHELTER (CURRENT) USE OF INSULIN (5) Bowel obstruction Assessment/Plan: Pain management with Tylenol blood and urine cultures negative to date Code(s): K56.609 - UNSP INTESTNL OBST, UNSP TO PARTIAL VERSUS COMPLETE OBST Qualifiers: Intestinal obstruction type: volvulus Qualified Code(s): K56.2 - Volvulus (6) Hypernatremia Assessment/Plan: now within normal values Code(s): E87.0 - HYPEROSMOLALITY AND HYPERNATREMIA Condition: Improved - Instructions Diet, Activity, Other Instructions: Postoperative instructions: You had an ileocecectomy for cecal volvulus on by Dr. Tony You of [facility]. Activity: Resume your usual activities gradually, but no heavy exertion or lifting more than 10-15 pounds for 6 weeks. You may shower daily with your wound dressings OFF/OUT; packing can be removed before you get in or in the shower if you like. Soap and water are fine to get on/in the wounds, just rinse the areas and pat dry. No bath or swimming until skin incisions have fully healed. Antonio should not need to be recovered with any dressings, unless you have been told otherwise. Eat lightly at first, but advance to your usual diet as tolerated. Wound Care: You have two small wounds in your midline incision, which will heal up slowly from the inside out/bottom up. Dressings should be changed DAILY - twice daily is ok if they are draining a fair amount. A visiting nurse will come to assist with dressings, make sure you have supplies, and monitor the wounds; family should learn how to do dressings on the days the nurse is not there. Remove the old wound packing in order to shower daily, then repack the wounds afterward with saline-dampened gauze OR 1/4" plain ribbon packing. The lower wound currently holds ONE 4x4 gauze damp with saline; the upper wound needs a smaller piece. Do not leave wet/damp dressings on intact skin. Cover with a small folded gauze, absorbent pad (as needed) and tape just to hold in place. The wounds will get shallower/smaller as they heal and not hold quite as much packing. Pain: For pain, you may use and alternate Tylenol (acetaminophen) 1-2 pills and/ or ibuprofen 200 mg (1-3 pills) every 6 hours each as needed; this means that you can take one OR the other at 3-hour intervals. Do not take more than 4000 mg of acetaminophen in a day. Take medications as prescribed or indicated on the labeling. Follow-up: Call [phone] to make your postop appointment (Tuesday in approximately 2 weeks after surgery as advised). Clinic is held in [facility] on the fifth floor of [facility] Call Dr. You's office at [phone] if you have: * increasing pain not responsive to pain medication * fever of 101F or higher * vomiting * unusual or increasing bleeding or drainage from wounds * increasing redness or swelling at wound sites Also, see your primary medical doctor within 1-2 weeks. Referrals: Tony You MD [Staff Physician] - Disposition: HOME - Home Medications Comprehensive Discharge Medication List: Ambulatory Orders Insulin Glargine,Hum.rec.anlog [Lantus] 9 unit SQ HS 02/11/19 Insulin Lispro [Humalog] unit SQ TID 02/11/19 This patient is new to me today: Yes Date on this admission: 02/20/19 Emergency Visit: No Critical Care patient: No - Discharge Referral Referred to [facility] Med P.C.: No
--- NOTE | 2019-03-06 18:08 | OP ---
DATE OF OPERATION: 02/12/2019 PREOPERATIVE DIAGNOSIS: Cecal volvulus. POSTOPERATIVE DIAGNOSIS: Cecal volvulus, an adhesive band and adhesions. PROCEDURE PERFORMED: Ileocecectomy with lysis of adhesions. SURGEON: Tony You MD APARTMENT MAINTENANCE: Khari Campa MD ANESTHESIA: General endotracheal. ESTIMATED BLOOD LOSS: 50 mL. FLUIDS: 1800 mL of crystalloid. URINE OUTPUT: 300 mL. DRAINS: An existing nasogastric tube, which was secured in place, and a Weldon catheter placed to gravity drainage. SPECIMEN: Terminal ileum, appendix, and cecum to Pathology en bloc, and peritoneal fluid culture on a swab to Microbiology. FINDINGS: There were omental adhesions to the lower abdominal wall and anterior pelvis. There was an adhesive band stuck down to the right lower quadrant around which the cecum was twisted and massively enlarged but not perforated. There was localized spillage of bowel content during the anastomosis only, which was irrigated and suctioned clear with only a small amount of contamination of the local field. DISPOSITION: Stable and extubated to PACU. INDICATIONS FOR PROCEDURE: The patient is a 58-year-old female with type 2 diabetes, which is insulin and well controlled. Surgical history is significant for myomectomy and liposuction, who initially presented to the [facility] emergency room with 3 days of generalized abdominal pain and progressive bloating and distention. In the emergency room, she was febrile with normal white blood cell count but dehydrated, tachycardic but not hypotensive, and a CT was done, showing cecal volvulus with concomitant small-bowel obstruction. She was resuscitated with generous IV fluids. Glucose was noted to be in the normal range, and she was started on antibiotics (Zosyn). She was transferred to the main campus of [facility], as there was no operative availability on weekends or holidays. Nasogastric tube was inserted, with a small amount of output and she did start feeling a little bit better. Risks, benefits, and alternatives of exploratory laparotomy, bowel resection, probable ileocecectomy, and possible ostomy were discussed with the patient, including but not limited to bleeding, infection, injury to adjacent structures, intestinal leak or injury, intraabdominal abscess, incisional hernia, need for further procedures, and . Alternatives were also discussed, including no surgery, with possible risks of bowel perforation, sepsis, and . The patient desired to proceed with the operation, signed informed consent for the same, and is now brought to the OR urgently for this procedure. OPERATIVE TECHNIQUE: The patient was brought to the operating room and laid supine in the operating table. Sequential compression devices were applied to bilateral lower extremities, and antibiotics continued in the perioperative period. After induction and intubation by Anesthesia, a Weldon catheter was placed in the patient's bladder, which was left in at the end of the case. Her abdomen was prepped and draped in sterile fashion. A midline incision was made with a scalpel and carried into subcutaneous tissues with electrocautery until the abdominal wall fascia was identified and exposed over the length of the incision. The fascia was then divided with electrocautery carefully down to the preperitoneal fat in the upper portion of the incision and the peritoneum grasped with the tips of 2 clamps, held up, and entered with Metzenbaum scissors. A fingertip was inserted into the abdominal cavity to protect the bowel, and the incision opened over its length, both inferiorly and superiorly. There were some thin omental adhesions noted in the lower aspect of the incision to the anterior abdominal wall, which were partially divided with electrocautery and then later taken off both the left and right sides of the lower aspect of the incision with electrocautery and a LigaSure impact device. Once the incision had been opened along its entire length, carefully protecting the bowel underneath, we initially tried to begin eviscerating some of the small bowel, which was quite dilated and fluid-filled proximally, the cecum was massively dilated and noted to take up a great deal of space, mostly in the midline of the abdomen. It could not be delivered out of the incision without extending the incision superiorly somewhat, which was done with first a scalpel and then electrocautery, again taking care to protect the bowel inside the abdomen. Once there was enough room to gently and carefully deliver the cecum out of the incision, it was noted to have a few areas of early serosal tearing but again no actual perforation or necrotic areas were identified. It was obviously twisted, and we began untwisting in counterclockwise direction, as well as following the small bowel to the terminal ileum down into the right lower quadrant to identify the site of volvulus. At one point it became apparent that there was a long thin adhesive band extending from the omentum down into the right lower quadrant, where it was stuck down against the right lower quadrant tissues and possibly the bowel. This was divided with the LigaSure, which enabled us to completely untwist the cecum itself and better identify the anatomy in the right lower quadrant. The small bowel was eviscerated out of the abdominal cavity at this point and was being carefully held with a wet towel. The terminal ileum and appendix were identified. The appendix appeared to be normal but edematous, enlarged, as it had been congested with the volvulus. The point of the terminal ileum a couple of inches above the ileocecal valve was identified and selected for transection and a window created against the bowel wall with the tip of a clamp. A YANIV stapler was then used to transect the proximal margin, and a LigaSure impacted device used to begin taking the mesentery toward the cecum. The white line of Toldt was also released with electrocautery against the lateral side of the right lower quadrant sidewall, and we were able to dissect the cecum free and move on up toward the right colon, the LigaSure impact device was also used to continue taking the mesentery of the cecum up until we were able to get clear of the dilated portion just into the ascending colon. Once we were able to get circumferentially around the beginning of the ascending colon, a site was selected just after the dilated cecum where the mesentery had already been freed by the LigaSure to come across and transect the distal margin with the Endo YANIV stapler. Once this had been completed, we had a specimen of the distal aspect of the terminal ileum, the appendix, and the cecum. It was passed off as a pathology specimen en bloc. The white line of Toldt was then dissected a bit further up the ascending colon using a combination of a right angle and electrocautery to free up just enough of length on this that we would be able to perform a primary anastomosis between the free terminal ileum and the right colon. These 2 portions of bowel laid well next to each other. Hemostasis was achieved with electrocautery throughout the process. We also managed to palpate the nasogastric tube in the stomach at one point to ensure that it was in good position for anesthesia to secure at that location. A culture of the peritoneal fluid, upon initially entering the abdominal cavity, had also been taken in a swab and sent to Microbiology. Lap pads were tucked entirely around the field to block off the intended area of anastomosis between the terminal ileum and the right colon and a primary stapled anastomosis was accomplished in the usual fashion in vyah-ay-ecoa functional end-to-end fashion, and a Bovie was used to enter both sides of the bowel limbs. There was some local spillage of bowel content, which was liquid but brownish and contained to the local area and the lap pads. This was suctioned as possible, particularly from the proximal aspect above the bowel as much as we were able to prior to performing the anastomosis, prior to opening the colon. The 2 ends of the intended anastomosis were secured together with 3-0 silk stitches x2 at the staple lines, and again at the intended crotch of the anastomosis. A 60 YANIV stapler was then used to perform the anastomosis between the 2 law. The enterotomy was closed with a TA stapler, and hemostasis ensured at the staple lines. Once the anastomosis had been performed, the lap pads were carefully removed from the area and the right lower quadrant and pelvis were irrigated with saline solution and suctioned entirely clear to help clear the field of any residual spillage, although there was no additional nelly contamination noted. The small bowel was then released and very carefully returned to the abdominal cavity, ensuring that there were no twists in the mesentery. The omentum was drawn down over the abdominal contents. The long thin adhesive band that had been stuck down to the right lower quadrant was identified as having been attached at the other end to the side of a piece of small bowel, which was divided near the bowel with the LigaSure to get rid of the adhesive band. The fascia was then closed with number 1 looped PDS sutures x2 in running fashion, starting at the top and bottom of the incision with the knot being tied in the middle. The wound was again irrigated with saline solution and suctioned clear. The skin was closed with raza, leaving a small area at the superior and inferior aspects of the incision open, to be packed with iodoform ribbon because of the contamination that had occurred during the anastomosis. Dressing of gauze and tape was then placed over the incision. A Weldon catheter nasogastric tube were left in. Counts were correct at the end of the procedure. The patient was then awakened by anesthesia, [facility] and taken to the recovery room in stable condition, having tolerated the procedure well. Dr. Campa was an essential assistant account executive throughout the procedure, including facilitating entry into the abdominal cavity, assistance with lysis of adhesions, and retraction and exposure throughout the case, helping with the performance of the bowel resection and anastomosis, and also assisting with fascial and skin closure at the end. Tony You M.D. CHARLES/[id number]
== END 2019-02-20 14:34 | disposition home or self-care (01) | DRG 329 ==
LOC: FER 18:05 → J8W 02-12 01:00 → JICU 02-12 22:48 → J5S 02-15 13:43
PROVIDERS: ADMIT Internal Medicine; ATTEND Nurse Practitioner Acute Care
PROC: 0DNW0ZZ Release Peritoneum, Open Approach (ICD-10-PCS; 2019-02-12)
PROC: 0DBH0ZZ Excision of Cecum, Open Approach (ICD-10-PCS; principal; 2019-02-12 08:00)
DX: K56.2 Volvulus (principal); E11.10 Type 2 diabetes mellitus with ketoacidosis without coma; E87.0 Hyperosmolality and hypernatremia; E87.2 Acidosis; K56.609 Unspecified intestinal obstruction, unspecified as to partial versus complete obstruction; R11.2 Nausea with vomiting, unspecified; Z79.4 Long term (current) use of insulin; K59.00 Constipation, unspecified; K66.0 Peritoneal adhesions (postprocedural) (postinfection)
CPT/HCPCS: 36415; 36600; 71045-TC-FY; 74177-TC; 80048; 80053; 81003; 82009; 82803; 82962; 83605; 83690; 83735; 84100; 84134; 84484; 85025; 85027; 85610; 86850; 86900; 86901; 87040; 87070; 87075; 87086; 87205; 88307-TC; 93005; 94010; 94760; 97116-GP; 97161-GP; 99284-25; J0131; J1644; J7030

== ENCOUNTER 2019-05-16 15:06 | Day surgery (SDC) | payer OTHER ==
[2019-05-15 18:25] VITALS: BMI 23.8
[2019-05-16] MEDS ORDERED: ceFAZolin SODIUM 1 GM VIAL ONE (16:43)
--- NOTE | 2019-05-16 17:08 | HP ---
History & Physical Update - History History: Change (see notes) (Pt with midline abdominal rim-enhancing collection under scar, with only 1-2mm tract leading to it from skin surface, for reopening of wound, I&D, to facilitate evacuation of possibly infected collection and packing for healing by secondary intention. She feels well, no pain, still with drainage at daily packing changes with 1/4" ribbon. No other complaints.) Currently as noted:: last seen 05/01/19 in wound clinic, see note - Physical Physical: No Change Currently as noted:: RRR, CTAB, abd soft, nontender, wound small dressed and packed - Assessment Assessment: No Change Currently as noted:: postop possibly infected wound in need of exposure for drainage & packing - Plan Plan: No Change Currently as noted:: for reopening of postop infected midline abdominal wound, I &D
[2019-05-16] MEDS ORDERED: PROMETHAZINE HCL 25 MG/1 ML VIAL IVPUSH PRN (17:50)
[2019-05-16] MEDS ORDERED: ONDANSETRON 4 MG/2 ML VIAL IVPUSH PRN (17:50)
[2019-05-16] MEDS ORDERED: oxyCODONE HCL 5 MG TABLET PO PRN (17:50)
[2019-05-16] MEDS ORDERED: LIDOCAINE HCL 1%, 10 MG/ML (20ML VIAL) ONE (17:53)
[2019-05-16] MEDS ORDERED: BUPIVACAINE HCL/PF 0.5% (5 MG/ML) 30 ML VIAL IJ ONE ×3 (17:54→18:16)
[2019-05-16] MEDS ORDERED: MIDAZOLAM HCL 2 MG/2 ML SINGLE DOSE VIAL ONE ×2 (17:59)
[2019-05-16] MEDS ORDERED: PROPOFOL 20 ML ONE (17:59)
[2019-05-16] MEDS ORDERED: ceFAZolin SODIUM 1 GM VIAL IVPB ONE (18:12)
[2019-05-16] MEDS ORDERED: LIDOCAINE HCL 1%, 10 MG/ML (20ML VIAL) INF ONE ×2 (18:16)
[2019-05-16] MEDS ORDERED: ACETAMINOPHEN WITH CODEINE 300MG/30MG TABLET PO PRN ×2 (19:26→19:27)
--- NOTE | 2019-05-16 19:33 | OP ---
Operative Note - Note: Operative Date: 05/16/19 Pre-Operative Diagnosis: non-healing surgical wound midline abdomen Operation: reopening of infected postop midline abdominal wound, debridement of skin and subcutaneous tissue 5cm2 Findings: tiny tract toward deep cavity, gelatinous tissue in deep cavity; cavity curetted and law debrided to healthy tissue; packed with 2" iodoform Post-Operative Diagnosis: Same as Pre-op Surgeon: Tony You Anesthesiologist/CUSTOM DRESSMAKER: Barry Joya Anesthesia: Local (20ml 1% lidocaine + 0.5% marcaine), MAC Specimens Removed: culture to microbiology Estimated Blood Loss (mls): 5 Instrument used (Debridements only): forceps, cautery, scalpel Fluid Volume Replaced (mls): 700 (crystalloid) Operative Report Dictated: Yes
[2019-05-16 20:27] VITALS: TEMP 98.2
[2019-05-16 20:30] VITALS: BP 133/81; PULSE 70
--- NOTE | 2019-05-17 01:19 | OP ---
DATE OF OPERATION: 05/16/2019 PREOPERATIVE DIAGNOSIS: Nonhealing surgical wound to the midline abdomen. POSTOPERATIVE DIAGNOSIS: Nonhealing surgical wound to the midline abdomen. PROCEDURE: Re-opening of infected postoperative midline abdominal wound and debridement of skin and subcutaneous tissue (5 cm sq). SURGEON: Tony You M.D. ANESTHESIA: MAC and local, a total of 20 mL of 1% lidocaine plus 0.5% Marcaine. ESTIMATED BLOOD LOSS: 5 mL FLUIDS: 700 mL of crystalloid SPECIMEN: Culture to microbiology. FINDINGS: Tiny tract leading to deep cavity with gelatinous tissue in the deep cavity, which was curetted and the law debrided back to healthy tissue. Wound was packed with 2-inch iodoform ribbon. DISPOSITION: Stable and awake to PACU. 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 Two areas of the midline incision were left open to heal by secondary intention, and although the upper portion ultimately did heal in, the lower wound healed up faster in the superficial aspect of the skin and subcutaneous tissue, leaving a very small 1 to 2 mm tract down into a fluid-containing deep cavity. This became more and more difficult to pack, and CT confirmed a rim-enhancing fluid collection at the base of this. She had been followed in the wound care clinic , and discussion was had with the patient and her regarding reopening of the midline abdominal wound for presumed infected collection to allow for proper exposure and packing of the wound, to again heal by secondary intention. Risks, benefits, and alternatives to the procedure were discussed with the patient including but not limited to bleeding, infection, injury to adjacent structures, potential for fascial injury, incisional hernia, and need for future procedures. Alternatives included no surgery which carried ongoing risks of persistently nonhealing wound and the collection with potential to break down the fascia underneath it, leading to further problems. The patient was very agreeable to surgery, signed informed consent for the same, is now brought to the OR for this procedure. OPERATIVE TECHNIQUE: The patient was brought to the operating room and laid supine on the operating table. Sequential compression devices were applied to bilateral lower extremities. 1 g Ancef was given as preoperative antibiotic. After sedation by anesthesia, the patient's lower abdominal wound was exposed, prepped and draped with Betadine in sterile fashion. Local anesthetic was infiltrated surrounding the known wound tract and somewhat deeper into the tissues and superior to the opening, toward the umbilicus where the deep cavity was known to be present. Approximately 4 mL of local anesthetic was saved to infiltrate into the base of the wound at the end of the procedure. The back end of a cotton-tipped applicator was carefully placed into the wound tract for a couple of centimeters, and a scalpel used to incise the midline scar superior to the opening, on top of this probe. This initially opened a small tract, but did not lead fully down to the open cavity, thus additional incision of the midline scar in a superior direction was carried out, first with the scalpel and then with electrocautery, until a fingertip was able to be inserted into the tract and identify the deep cavity, which was palpated to contain some gelatinous material. Culture swab was taken of the contents of the deep cavity and sent to microbiology. The wound was opened down to the level of this cavity with no further tunneling superiorly. Electrocautery was used for hemostasis as needed throughout the procedure. The initial wound opening and some of the scar tissue surrounding the tract that initially defined the wound was debrided with forceps and electrocautery, as well as the law of the wound on both sides back to some healthy fat. The base of the wound was curetted as well as cauterized, until all of the gelatinous and poorly healing tissue had been removed. At one point a small portion of the original fascial PDS suture was noted to be loose in the wound and was also removed. The fascia itself appeared to be intact to palpation, but deep exploration was not undertaken. There was no evidence of violation of the peritoneum or any intraperitoneal contents visible at the base of the wound. The wound was irrigated with saline solution. Gauze was also used to carefully cleanse the surface of the wound, and ultimately the wound cavity measured 4.5 cm craniocaudal x 2 cm laterally x 4.8 cm deep. There was no tunneling or undermining, and the law of the wound allowed for packing of the complete cavity, from the base all the way up, with 2-inch iodoform ribbon. Once the packing had been accomplished, the wound was covered with some folded gauze, the umbilicus covered with a piece of gauze and the site covered with silk tape to hold it in place. Again, the remaining local anesthetic was infiltrated into the base of the wound prior to packing. Counts were correct at the end of the procedure. The patient was then ensured to be awake by anesthesia, was able to move herself back to her stretcher, and was taken to the recovery room in stable condition having tolerated the procedure well. Tony You M.D. [id number] MTDD
== END 2019-05-16 20:20 | disposition home or self-care (01) ==
LOC: JASU-SURG 15:06
PROVIDERS: ATTEND Surgery
PROC: 0JB80ZZ Excision of Abdomen Subcutaneous Tissue and Fascia, Open Approach (ICD-10-PCS; principal; 2019-05-16 14:00)
DX: T81.42XS Infection following a procedure, deep incisional surgical site, sequela (principal); E11.9 Type 2 diabetes mellitus without complications; Z79.4 Long term (current) use of insulin
CPT/HCPCS: 36415; 82947; 82962; 86850; 86900; 86901; 87070; 87076; 87077; 87205; 94760